=== PATIENT | female | born 1940 | race Caucasian/White ===

== ENCOUNTER 2020-08-21 12:11 | Outpatient (REF) | payer MEDICARE, SELFPAY ==
[2020-08-21 13:03] LABS: Alanine Aminotransferase 76 U/L (0-31); Albumin Level 3.7 g/dL (3.5-5.0); Alkaline Phosphatase 98 U/L (39-117); Aspartate Amino Transferase 88 U/L (5-31); Bilirubin Direct 0.3 mg/dL (0.0-0.5); Bilirubin Total 0.5 mg/dL (0.0-1.0); Total Protein 6.3 g/dL (6.5-8.0)
== END 2020-08-21 12:12 | disposition home or self-care (01) ==
LOC: HO.LNP 12:11
PROVIDERS: Visit Provider Internal Medicine
DX: K75.4 Autoimmune hepatitis (principal); R74.8 Abnormal levels of other serum enzymes
CPT/HCPCS: 80076

== ENCOUNTER 2020-09-01 14:58 | Outpatient (REF) | payer MEDICARE, SELFPAY ==
[2020-09-01 15:50] LABS: Alanine Aminotransferase 108 U/L (0-31); Alkaline Phosphatase 115 U/L (39-117); Aspartate Amino Transferase 117 U/L (5-31); Bilirubin Direct 0.4 mg/dL (0.0-0.5); Bilirubin Total 1.1 mg/dL (0.0-1.0); Total Protein 6.9 g/dL (6.5-8.0)
== END 2020-09-01 14:59 | disposition home or self-care (01) ==
LOC: HO.LNP 14:58
PROVIDERS: Visit Provider Internal Medicine
DX: K75.4 Autoimmune hepatitis (principal)
CPT/HCPCS: 80076

== ENCOUNTER 2020-09-15 15:39 | Outpatient (REF) | payer MEDICARE, SELFPAY ==
[2020-09-15 16:16] LABS: Alanine Aminotransferase 99 U/L (0-31); Alkaline Phosphatase 101 U/L (39-117); Aspartate Amino Transferase 94 U/L (5-31); Bilirubin Direct 0.4 mg/dL (0.0-0.5); Bilirubin Total 0.9 mg/dL (0.0-1.0); Total Protein 6.9 g/dL (6.5-8.0)
== END 2020-09-15 15:40 | disposition home or self-care (01) ==
LOC: HO.LNP 15:39
PROVIDERS: Visit Provider Internal Medicine
DX: K75.4 Autoimmune hepatitis (principal)
CPT/HCPCS: 80076

== ENCOUNTER 2020-10-01 15:37 | Outpatient (REF) | payer MEDICARE, SELFPAY ==
[2020-10-01 16:40] LABS: Alanine Aminotransferase 67 U/L (0-31); Alkaline Phosphatase 103 U/L (39-117); Aspartate Amino Transferase 68 U/L (5-31); Bilirubin Direct 0.4 mg/dL (0.0-0.5); Bilirubin Total 0.9 mg/dL (0.0-1.0); Total Protein 6.8 g/dL (6.5-8.0)
== END 2020-10-01 15:38 | disposition home or self-care (01) ==
LOC: HO.LNP 15:37
PROVIDERS: Visit Provider Internal Medicine
DX: K75.4 Autoimmune hepatitis (principal)
CPT/HCPCS: 80076

== ENCOUNTER 2020-10-13 15:47 | Outpatient (REF) | payer MEDICARE, SELFPAY ==
[2020-10-13 16:25] LABS: Alanine Aminotransferase 57 U/L (0-31); Alkaline Phosphatase 97 U/L (39-117); Aspartate Amino Transferase 61 U/L (5-31); Bilirubin Direct 0.3 mg/dL (0.0-0.5); Bilirubin Total 0.5 mg/dL (0.0-1.0); Total Protein 6.7 g/dL (6.5-8.0)
== END 2020-10-13 15:48 | disposition home or self-care (01) ==
LOC: HO.LNP 15:47
PROVIDERS: Visit Provider Internal Medicine
DX: K75.4 Autoimmune hepatitis (principal); R94.5 Abnormal results of liver function studies
CPT/HCPCS: 80076

== ENCOUNTER 2020-11-14 15:21 | Outpatient (REF) | payer MEDICARE, SELFPAY ==
[2020-11-14 15:28] LABS: MANUAL DIFF FLAG NO
[2020-11-14 15:32] LABS: Basophils Absolute Auto 0.1 X10*3/uL (0.0-0.2); Basophils Percent Auto 1.8 % (0-2); Eosinophils Absolute Auto 0.2 X10*3/uL (0.0-0.4); Eosinophils Percent Auto 3.8 % (0-4); Hematocrit 44.4 % (37-47); Hemoglobin 14.8 g/dl (12.0-16.0); Imm Gran Abs Auto 0.02 X10*3/uL (0.00-0.03); Imm Gran Pct Auto 0.4 % (0.0-0.4); Lymphocytes Percent Auto 34.8 % (20-40); Mean Corpuscular HGB Conc 33.3 g/dl (31.0-35.0); Mean Corpuscular Hemoglobin 30.3 pg (27.0-33.0); Mean Corpuscular Volume 90.8 fL (80-98); Mean Platelet Volume 11.3 fL (9.4-12.3); Monocytes Absolute Auto 0.5 X10*3/uL (0.1-1.2); Monocytes Percent Auto 8.4 % (2-11); Neutrophils Absolute Auto 2.9 X10*3/uL (2.0-8.3); Neutrophils Percent Auto 50.8 % (45-73); Platelet Count 168 X10*3/uL (160-400); Red Blood Count 4.89 X10*6/uL (4.20-5.50); Red Cell Distribution Width 13.9 % (11.0-16.0); White Blood Count 5.6 X10*3/uL (4.8-10.8)
[2020-11-14 16:08] LABS: Alanine Aminotransferase 60 U/L (0-31); Alkaline Phosphatase 91 U/L (39-117); Anion Gap 14 (12-20); Aspartate Amino Transferase 70 U/L (5-31); Bilirubin Direct 0.5 mg/dL (0.0-0.5); Bilirubin Total 1.3 mg/dL (0.0-1.0); Blood Urea Nitrogen 22 mg/dL (9-16); Carbon Dioxide 24 mmol/L (22-29); Chloride 109 mmol/L (96-108); Estimated Glomerular Filt Rate > 60; Glucose Random 104 mg/dL (60-115); Potassium 4.5 mmol/l (3.3-5.1); Sodium 142 mmol/L (135-145); Total Protein 6.7 g/dL (6.5-8.0)
[2020-11-14 16:20] LABS: Erythrocyte Sedimentation Rate 12 MM/HR (0-20)
== END 2020-11-14 15:22 | disposition home or self-care (01) ==
LOC: HO.LNP 15:21
PROVIDERS: Referring Provider Physician Assistant Medical; Visit Provider Internal Medicine
DX: K75.4 Autoimmune hepatitis (principal); M35.9 Systemic involvement of connective tissue, unspecified; D68.61 Antiphospholipid syndrome; M19.071 Primary osteoarthritis, right ankle and foot; M19.072 Primary osteoarthritis, left ankle and foot; M77.32 Calcaneal spur, left foot
CPT/HCPCS: 80053; 80076; 82248; 85025; 85652; 86140

== ENCOUNTER 2020-12-26 16:06 | Outpatient (REF) | payer MEDICARE, SELFPAY ==
[2020-12-26 16:43] LABS: Alanine Aminotransferase 48 U/L (0-31); Albumin Level 3.9 g/dL (3.5-5.0); Alkaline Phosphatase 71 U/L (39-117); Aspartate Amino Transferase 51 U/L (5-31); Bilirubin Direct 0.4 mg/dL (0.0-0.5); Bilirubin Total 1.1 mg/dL (0.0-1.0); Total Protein 6.6 g/dL (6.5-8.0)
== END 2020-12-26 16:07 | disposition home or self-care (01) ==
LOC: HO.LNP 16:06
PROVIDERS: Visit Provider Internal Medicine
DX: K75.4 Autoimmune hepatitis (principal)
CPT/HCPCS: 80076

== ENCOUNTER 2021-01-27 15:36 | Outpatient (REF) | payer MEDICARE, SELFPAY ==
[2021-01-27 16:16] LABS: Alanine Aminotransferase 33 U/L (0-31); Albumin Level 3.9 g/dL (3.5-5.0); Alkaline Phosphatase 62 U/L (39-117); Aspartate Amino Transferase 36 U/L (5-31); Bilirubin Direct 0.4 mg/dL (0.0-0.5); Bilirubin Total 1.1 mg/dL (0.0-1.0); Total Protein 6.5 g/dL (6.5-8.0)
== END 2021-01-27 15:37 | disposition home or self-care (01) ==
LOC: HO.LNP 15:36
PROVIDERS: Visit Provider Internal Medicine
DX: K75.4 Autoimmune hepatitis (principal)
CPT/HCPCS: 80076

== ENCOUNTER 2021-02-24 16:31 | Outpatient (REF) | payer MEDICARE, SELFPAY ==
[2021-02-24 17:44] LABS: Alanine Aminotransferase 48 U/L (0-31); Albumin Level 3.8 g/dL (3.5-5.0); Alkaline Phosphatase 61 U/L (39-117); Aspartate Amino Transferase 40 U/L (5-31); Bilirubin Direct 0.5 mg/dL (0.0-0.5); Bilirubin Total 1.2 mg/dL (0.0-1.0); Total Protein 6.4 g/dL (6.5-8.0)
== END 2021-02-24 16:32 | disposition home or self-care (01) ==
LOC: HO.LNP 16:31
PROVIDERS: Visit Provider Internal Medicine
DX: K75.4 Autoimmune hepatitis (principal)
CPT/HCPCS: 80076

== ENCOUNTER 2021-04-02 15:35 | Outpatient (REF) | payer MEDICARE, SELFPAY ==
[2021-04-02 16:10] LABS: Alanine Aminotransferase 21 U/L (0-31); Alkaline Phosphatase 66 U/L (39-117); Aspartate Amino Transferase 27 U/L (5-31); Bilirubin Direct 0.5 mg/dL (0.0-0.5); Bilirubin Total 1.2 mg/dL (0.0-1.0); Total Protein 6.5 g/dL (6.5-8.0)
== END 2021-04-02 15:36 | disposition home or self-care (01) ==
LOC: HO.LNP 15:35
PROVIDERS: Visit Provider Internal Medicine
DX: K75.4 Autoimmune hepatitis (principal)
CPT/HCPCS: 80076

== ENCOUNTER 2021-04-30 15:17 | Outpatient (REF) | payer MEDICARE, SELFPAY ==
[2021-04-30 15:55] LABS: Alanine Aminotransferase 21 U/L (0-31); Albumin Level 3.8 g/dL (3.5-5.0); Alkaline Phosphatase 66 U/L (39-117); Aspartate Amino Transferase 27 U/L (5-31); Bilirubin Direct 0.5 mg/dL (0.0-0.5); Bilirubin Total 1.3 mg/dL (0.0-1.0); Total Protein 6.3 g/dL (6.5-8.0)
== END 2021-04-30 15:18 | disposition home or self-care (01) ==
LOC: HO.LNP 15:17
PROVIDERS: Visit Provider Internal Medicine
DX: K75.4 Autoimmune hepatitis (principal)
CPT/HCPCS: 80076

== ENCOUNTER 2021-06-05 14:21 | Outpatient (REF) | payer MEDICARE, SELFPAY ==
[2021-06-05 14:49] LABS: Alanine Aminotransferase 26 U/L (0-31); Albumin Level 3.9 g/dL (3.5-5.0); Alkaline Phosphatase 68 U/L (39-117); Aspartate Amino Transferase 34 U/L (5-31); Bilirubin Direct 0.4 mg/dL (0.0-0.5); Total Protein 6.4 g/dL (6.5-8.0)
== END 2021-06-05 14:22 | disposition home or self-care (01) ==
LOC: HO.LNP 14:21
PROVIDERS: Visit Provider Internal Medicine
DX: K75.4 Autoimmune hepatitis (principal)
CPT/HCPCS: 80076

== ENCOUNTER 2021-07-20 15:14 | Outpatient (REF) | payer MEDICARE, SELFPAY ==
[2021-07-20 16:07] LABS: Alanine Aminotransferase 17 U/L (0-31); Albumin Level 4.2 g/dL (3.5-5.0); Alkaline Phosphatase 69 U/L (39-117); Aspartate Amino Transferase 22 U/L (5-31); Bilirubin Direct 0.4 mg/dL (0.0-0.5); Bilirubin Total 0.8 mg/dL (0.0-1.0); Total Protein 6.5 g/dL (6.5-8.0)
== END 2021-07-20 15:15 | disposition home or self-care (01) ==
LOC: HO.LNP 15:14
PROVIDERS: Visit Provider Internal Medicine
DX: K75.4 Autoimmune hepatitis (principal)
CPT/HCPCS: 80076

== ENCOUNTER 2021-08-21 15:38 | Outpatient (REF) | payer MEDICARE, SELFPAY ==
[2021-08-21 16:03] LABS: Alanine Aminotransferase 16 U/L (0-31); Albumin Level 3.9 g/dL (3.5-5.0); Alkaline Phosphatase 70 U/L (39-117); Aspartate Amino Transferase 25 U/L (5-31); Bilirubin Direct 0.4 mg/dL (0.0-0.5); Total Protein 6.4 g/dL (6.5-8.0)
== END 2021-08-21 15:39 | disposition home or self-care (01) ==
LOC: HO.LNP 15:38
PROVIDERS: Visit Provider Internal Medicine
DX: K75.4 Autoimmune hepatitis (principal)
CPT/HCPCS: 80076

== ENCOUNTER 2021-11-06 14:36 | Outpatient (REF) | payer MEDICARE, SELFPAY ==
[2021-11-06 15:16] LABS: Alanine Aminotransferase 17 U/L (0-31); Albumin Level 4.1 g/dL (3.5-5.0); Alkaline Phosphatase 72 U/L (39-117); Aspartate Amino Transferase 21 U/L (5-31); Bilirubin Direct 0.4 mg/dL (0.0-0.5); Total Protein 6.6 g/dL (6.5-8.0)
== END 2021-11-06 14:37 | disposition home or self-care (01) ==
LOC: HO.LNP 14:36
PROVIDERS: Visit Provider Internal Medicine
DX: K75.4 Autoimmune hepatitis (principal)
CPT/HCPCS: 80076

== ENCOUNTER 2022-01-22 16:08 | Outpatient (REF) | payer MEDICARE, SELFPAY ==
[2022-01-22 16:32] LABS: Alanine Aminotransferase 18 U/L (0-31); Albumin Level 3.8 g/dL (3.5-5.0); Alkaline Phosphatase 62 U/L (39-117); Aspartate Amino Transferase 21 U/L (5-31); Bilirubin Direct 0.5 mg/dL (0.0-0.5); Bilirubin Total 1.4 mg/dL (0.0-1.0); Total Protein 6.1 g/dL (6.5-8.0)
== END 2022-01-22 16:09 | disposition home or self-care (01) ==
LOC: HO.LNP 16:08
PROVIDERS: Visit Provider Internal Medicine
DX: K75.4 Autoimmune hepatitis (principal)
CPT/HCPCS: 80076

== ENCOUNTER 2022-03-15 16:26 | Outpatient (REF) | payer MEDICARE, SELFPAY ==
[2022-03-15 16:55] LABS: Alanine Aminotransferase 17 U/L (0-31); Albumin Level 3.9 g/dL (3.5-5.0); Alkaline Phosphatase 64 U/L (39-117); Aspartate Amino Transferase 23 U/L (5-31); Bilirubin Direct 0.3 mg/dL (0.0-0.5); Bilirubin Total 0.7 mg/dL (0.0-1.0); Total Protein 6.4 g/dL (6.5-8.0)
== END 2022-03-15 16:27 | disposition home or self-care (01) ==
LOC: HO.LNP 16:26
PROVIDERS: Visit Provider Internal Medicine
DX: K75.4 Autoimmune hepatitis (principal)
CPT/HCPCS: 80076

== ENCOUNTER 2022-05-29 13:24 | Outpatient (REF) | payer MEDICARE, SELFPAY ==
[2022-05-29 13:50] LABS: Alanine Aminotransferase 17 U/L (0-31); Albumin Level 4.1 g/dL (3.5-5.0); Alkaline Phosphatase 61 U/L (39-117); Aspartate Amino Transferase 23 U/L (5-31); Bilirubin Direct 0.5 mg/dL (0.0-0.5); Total Protein 6.5 g/dL (6.5-8.0)
== END 2022-05-29 13:25 | disposition home or self-care (01) ==
LOC: HO.LNP 13:24
PROVIDERS: Visit Provider Internal Medicine
DX: K75.4 Autoimmune hepatitis (principal)
CPT/HCPCS: 80076

== ENCOUNTER 2022-07-17 15:42 | Outpatient (REF) | payer MEDICARE, SELFPAY ==
[2022-07-17 16:01] LABS: Alanine Aminotransferase 20 U/L (0-31); Albumin Level 3.9 g/dL (3.5-5.0); Alkaline Phosphatase 58 U/L (39-117); Aspartate Amino Transferase 28 U/L (5-31); Bilirubin Direct 0.5 mg/dL (0.0-0.5); Bilirubin Total 1.3 mg/dL (0.0-1.0); Total Protein 6.2 g/dL (6.5-8.0)
== END 2022-07-17 15:43 | disposition home or self-care (01) ==
LOC: HO.LNP 15:42
PROVIDERS: Visit Provider Internal Medicine
DX: K75.4 Autoimmune hepatitis (principal)
CPT/HCPCS: 80076

== ENCOUNTER 2022-09-30 16:13 | Outpatient (REF) | payer MEDICARE, SELFPAY ==
[2022-09-30 16:46] LABS: Alanine Aminotransferase 32 U/L (0-31); Albumin Level 3.9 g/dL (3.5-5.0); Alkaline Phosphatase 83 U/L (39-117); Aspartate Amino Transferase 42 U/L (5-31); Bilirubin Direct 0.3 mg/dL (0.0-0.5); Bilirubin Total 1.1 mg/dL (0.0-1.0); Total Protein 6.2 g/dL (6.5-8.0)
== END 2022-09-30 16:14 | disposition home or self-care (01) ==
LOC: HO.LNP 16:13
PROVIDERS: Visit Provider Internal Medicine
DX: K75.4 Autoimmune hepatitis (principal)
CPT/HCPCS: 80076

== ENCOUNTER 2022-11-25 15:28 | Outpatient (REF) | payer MEDICARE, SELFPAY ==
[2022-11-25 16:01] LABS: Alanine Aminotransferase 22 U/L (0-31); Albumin Level 3.9 g/dL (3.5-5.0); Alkaline Phosphatase 68 U/L (39-117); Anion Gap 13 (12-20); Aspartate Amino Transferase 34 U/L (5-31); Bilirubin Direct 0.4 mg/dL (0.0-0.5); Bilirubin Total 1.3 mg/dL (0.0-1.0); Blood Urea Nitrogen 19 mg/dL (9-16); Calcium 9.7 mg/dL (8.4-10.2); Carbon Dioxide 25 mmol/L (22-29); Chloride 109 mmol/L (96-108); Cholesterol 187 mg/dL; Estimated Glomerular Filt Rate 59; Glucose Fasting 107 mg/dL (60-99); HDL Cholesterol 58 mg/dL; LDL Cholesterol Calculated 103 mg/dl; Potassium 4.2 mmol/L (3.3-5.1); Sodium 143 mmol/L (135-145); Total Protein 6.2 g/dL (6.5-8.0); Triglycerides 132 mg/dL
== END 2022-11-25 15:29 | disposition home or self-care (01) ==
LOC: HO.LNP 15:28
PROVIDERS: Visit Provider Nurse Practitioner Family
DX: Z13.1 Encounter for screening for diabetes mellitus (principal); Z13.220 Encounter for screening for lipoid disorders; K75.4 Autoimmune hepatitis
CPT/HCPCS: 80048; 80061; 80076

== ENCOUNTER 2022-12-24 17:00 | Outpatient (REF) | payer MEDICARE, SELFPAY ==
[2022-12-24 17:25] LABS: Estimated Average Glucose 103 mg/dL; Hemoglobin A1c % 5.2 %
[2022-12-24 18:16] LABS: Alanine Aminotransferase 19 U/L (0-31); Albumin Level 3.8 g/dL (3.5-5.0); Alkaline Phosphatase 61 U/L (39-117); Aspartate Amino Transferase 31 U/L (5-31); Bilirubin Direct 0.4 mg/dL (0.0-0.5); Bilirubin Total 1.4 mg/dL (0.0-1.0); Total Protein 5.9 g/dL (6.5-8.0)
== END 2022-12-24 17:01 | disposition home or self-care (01) ==
LOC: HO.LNP 17:00
PROVIDERS: Internal Medicine; Visit Provider Nurse Practitioner Family
DX: R73.01 Impaired fasting glucose (principal); K75.4 Autoimmune hepatitis
CPT/HCPCS: 80076; 83036

== ENCOUNTER → 2023-03-23 12:37 | Outpatient (BNVA) | payer MEDICARE, SELFPAY | PROVIDERS: PCP Physician Assistant; Visit Provider Student in an Organized Health Care Education/Training Program | DX: M35.9 Systemic involvement of connective tissue, unspecified (principal); Z79.52 Long term (current) use of systemic steroids | CPT/HCPCS: 99202 ==

== ENCOUNTER 2023-03-30 10:12 | Outpatient (REF) | payer MEDICARE, SELFPAY ==
--- NOTE | ~2023-03-30 | XR_ITS ---
EXAMINATION: XR SHOULDER, LEFT CLINICAL INFORMATION: Unable to lift left arm of COMPARISON: None available. TECHNIQUE: AP external rotation, Grashey, scapular Y of the left shoulder. FINDINGS: The bones and soft tissues are intact. No fracture. There is superior subluxation of the humeral head in relation to the glenoid and mild joint space narrowing. There is moderately severe acromioclavicular osteoarthritis. No abnormal soft tissue calcifications. XR/XR shoulder LT min 2V IMPRESSION: Moderately severe acromioclavicular osteoarthritis as well as arthritic changes of the left ulnohumeral joint.
--- NOTE | ~2023-03-30 | XR_ITS ---
EXAMINATION: XR SHOULDER, RIGHT CLINICAL INFORMATION: Unable to lift left arm COMPARISON: None available. TECHNIQUE: AP external rotation, Grashey, scapular Y, and axillary views of the right shoulder. FINDINGS: There is moderately severe acromioclavicular osteoarthritis. There is superior subluxation of the humeral head in relation to the glenoid and soft tissue calcifications suggestive of rotator tendinopathy. No fracture. Other than the subluxation, glenohumeral joint remains in alignment. Soft tissues are otherwise normal XR/XR shoulder RT min 2V IMPRESSION: Degenerative changes of the right shoulder with moderately severe acromioclavicular osteoarthritis and probable rotator tendinopathy.
== END 2023-03-30 10:13 | disposition home or self-care (01) ==
LOC: HO.XRAY 10:12
PROVIDERS: PCP Physician Assistant; Visit Provider Student in an Organized Health Care Education/Training Program
DX: M19.011 Primary osteoarthritis, right shoulder (principal); M19.012 Primary osteoarthritis, left shoulder
CPT/HCPCS: 73030

== ENCOUNTER 2023-04-04 17:31 | Outpatient (REF) | payer MEDICARE, SELFPAY ==
[2023-04-04 18:06] LABS: Alanine Aminotransferase 20 U/L (0-31); Albumin Level 3.9 g/dL (3.5-5.0); Alkaline Phosphatase 62 U/L (39-117); Aspartate Amino Transferase 24 U/L (5-31); Bilirubin Direct 0.4 mg/dL (0.0-0.5); Bilirubin Total 0.8 mg/dL (0.0-1.0); Total Protein 6.1 g/dL (6.5-8.0)
== END 2023-04-04 17:32 | disposition home or self-care (01) ==
LOC: HO.LNP 17:31
PROVIDERS: Visit Provider Internal Medicine
DX: K75.4 Autoimmune hepatitis (principal)
CPT/HCPCS: 80076

== ENCOUNTER 2023-04-06 10:46 | Outpatient (REF) | payer MEDICARE, SELFPAY ==
--- NOTE | ~2023-04-06 | MM_ITS ---
EXAMINATION: BONE DENSITOMETRY CLINICAL INDICATION: Age-related osteoporosis without current pathological fracture. COMPARISON: None (current study represents initial baseline exam). TECHNIQUE: Using a [employer] DXA System (software version: 13.1) manufactured by [employer], dual-energy x-ray absorptiometry was performed of the lumbar spine and right hip. The images are of good technical quality. Summary results are attached. FINDINGS: AP SPINE L1-L2 (excluding L3 and L4): The data of L1-L4 has been changed to exclude the L3 and L4 vertebral bodies, because degenerative changes at these levels may cause overestimation of lumbar spine density. BMD 1.464 g/cm2, Z-score 3.2, T-score 2.5, normal. RIGHT FEMUR, NECK: BMD 0.877 g/cm2, Z-score 0.3, T-score -1.2, osteopenia. RIGHT FEMUR, TOTAL: BMD 0.843 g/cm2, Z-score 0.0, T-score -1.3, osteopenia. IDENTIFIED RISK FACTORS: Menopause, secondary osteoporosis, height loss, glucocorticoids (chronic). HISTORY OF FRACTURE: None listed. MEDICATIONS: Calcium supplements or multivitamin, vitamin D. MM/XR DEXA axial skeleton IMPRESSION: 1. DIAGNOSIS: Osteopenia based on the lowest T-score value of -1.3 in the total femur applying World Health Organization criteria. 2. 10-YEAR FRACTURE RISK PREDICTION, FRAX: Major osteoporotic fracture (clinical spine, forearm, hip or shoulder) 17.1%. Hip fracture 4.2%. 3. Treatment Recommendations: NOF guidelines recommend consideration for treatment in postmenopausal women and men age 50 and older presenting with the following: -A hip or vertebral (clinical or morphometric) fracture. -T-score less than or equal to -2.5 at the femoral neck or spine after appropriate evaluation to exclude secondary causes. -Low bone mass at the hip or spine and a 10-year fracture probability by FRAX of greater than or equal to 3% for hip fracture or greater than or equal to 20% for major osteoporotic fracture based on the [place] adapted WHO algorithm. 4. Other Recommendations: All treatment decisions require clinical judgment and consideration of individual patient factors, including patient preferences, comorbidities, previous drug use, risk factors not captured in the FRAX model (e.g. frailty, falls, vitamin D deficiency, increased bone turnover, interval significant decline in bone density) and possible under or overestimation of fracture risk by FRAX. Additional medical evaluation for secondary cause of low bone mineral density may be appropriate. FUTURE SCAN RECOMMENDATION: People with diagnosed cases of osteoporosis or at high risk for fracture should have regular bone mineral density tests. For patients eligible for Medicare, routine testing is allowed once every 2 years. The testing frequency can be increased to one year for patients who have rapidly progressing disease, those who are receiving or discontinuing medical therapy to restore bone mass, or have additional risk factors.
== END 2023-04-06 10:47 | disposition home or self-care (01) ==
LOC: HO.MAMMO 10:46
PROVIDERS: PCP Physician Assistant; Visit Provider Student in an Organized Health Care Education/Training Program
DX: Z13.820 Encounter for screening for osteoporosis (principal); Z78.0 Asymptomatic menopausal state; M81.0 Age-related osteoporosis without current pathological fracture
CPT/HCPCS: 77080

== ENCOUNTER 2023-04-26 13:50 | Outpatient (RCR) | payer MEDICARE, SELFPAY | END 2023-05-06 12:41 | disposition home or self-care (01) | LOC: HO.PT 13:50 | PROVIDERS: PCP Physician Assistant; Visit Provider Student in an Organized Health Care Education/Training Program | DX: M19.012 Primary osteoarthritis, left shoulder (principal) ==

== ENCOUNTER 2023-05-12 09:47 | Outpatient (REF) | payer MEDICARE, SELFPAY ==
--- NOTE | 2023-05-12 09:50 | EMG_ITS ---
Bilateral median and ulnar motor and sensory studies were performed. Bilateral radial sensory studies were performed and paraspinal muscles were tested with a needle. IMPRESSION: 1. Moderate to severe left and [id number] right median neuropathy across carpal tunnel. 2. Chronic bilateral mid cervical radiculopathy. MD DELLA Velazquez/JESUS / [id number]
== END 2023-05-12 09:48 | disposition home or self-care (01) ==
LOC: HO.NEURO 09:47
PROVIDERS: PCP Physician Assistant; Visit Provider Student in an Organized Health Care Education/Training Program
DX: G56.03 Carpal tunnel syndrome, bilateral upper limbs (principal)
CPT/HCPCS: 95886; 95911

== ENCOUNTER 2023-06-15 11:07 | Outpatient (REF) | payer MEDICARE, SELFPAY ==
--- NOTE | 2023-06-15 12:17 | PFT_ITS ---
Forced vital capacity 96%, FEV1 89%, FEV1/FVC ratio is 69. DKN15-89 76% and MVV is 97%. Post bronchodilator therapy, there is no significant change. Total lung capacity 90%. Residual volume 82%. Diffusion capacity 78%. CONCLUSION: There is a very minimal degree of obstructive airway disorder, but there is no significant response to bronchodilator therapy. Lung volumes and diffusion capacity are normal. MD JAYDEN Ernst/JESUS / [id number]
== END 2023-06-15 11:08 | disposition home or self-care (01) ==
LOC: HO.RESP 11:07
PROVIDERS: PCP Physician Assistant; Visit Provider Student in an Organized Health Care Education/Training Program
DX: R06.02 Shortness of breath (principal)
CPT/HCPCS: 94060; 94727; 94729

== ENCOUNTER → 2023-06-15 12:17 | Outpatient (BNV) | payer MEDICARE, SELFPAY | PROVIDERS: PCP Physician Assistant; Visit Provider Internal Medicine | DX: R06.09 Other forms of dyspnea (principal) | CPT/HCPCS: 94060; 94727; 94729 ==

== ENCOUNTER 2023-06-21 14:11 | Outpatient (AMB) | payer MEDICARE, SELFPAY ==
--- NOTE | 2023-06-21 14:25 | A.OFFVIS_ITS ---
Intake Vital Signs 06/21/23 14:26 Height 5 ft 7 in BMI Reason not done Patient refused/unable BP 138/66 Blood Pressure Location Rt brachial Position Sitting Pulse 93 Pulse Source Pulse Oximeter Temp 97.7 F Temp Source Skin Pulse Oximetry (%) 97 Comment Pt states weight is 216 Intake Visit Reasons: UCTD Intake Note: Pt seen today for follow up and test results. Natural Sciences Manager Required: No Accompanied by: Friend Crystal Allergies cephalexin [CEPHALEXIN] Allergy (Severe, Verified 06/21/23 14:28) ANAPHYLAXIS morphine [MORPHINE] Allergy (Intermediate, Verified 06/21/23 14:28) RASHES AND HIVES, hives benzocaine Allergy (Unknown, Verified 06/21/23 14:28) Unknown clindamycin [CLINDAMYCIN] Allergy (Unknown, Verified 06/21/23 14:28) ANAPHYLAXIS gabapentin [GABAPENTIN] Allergy (Unknown, Verified 06/21/23 14:28) HIVES gluten [GLUTEN] Allergy (Unknown, Verified 06/21/23 14:28) NAUSEA & VOMITING oxycodone [OXYCODONE] Allergy (Unknown, Verified 06/21/23 14:28) RASH, hives povidone-iodine [From BETADINE] Allergy (Unknown, Verified 06/21/23 14:28) RASH soap [From BETADINE] Allergy (Unknown, Verified 06/21/23 14:28) UNKNOWN Clindamycin HCl Allergy (Unknown, Uncoded 06/21/23 14:28) anaphylaxis Gluten Allergy (Unknown, Uncoded 06/21/23 14:28) rashes,hives,diarrhea Medication List - Last Reconciled 06/21/23 by Mya Palma MD cholecalciferol (vitamin D3) (Vitamin D3) 25 mcg PO DAILY cider [id number] 300-8.3 mg tabs PO DAILY docusate sodium 50 mg PO DAILY PRN magnesium oxide 250 mg PO DAILY multivitamin 1 tab PO DAILY prednisone 5 mg PO DAILY warfarin 1 tab PO DAILY HPI HPI Comments History of Present Illness Details This is an 83-year-old female with undifferentiated connective tissue disease who presents for follow-up. States that the shoulder exam done by me last visit caused her to have a bruise in her left arm that lasted about 1 month. Continues to have left shoulder stiffness. She has been using a wrist splint for her carpal tunnel symptoms bilaterally with some improvement. Initial history: This is an 82-year-old female who is referred for evaluation of mixed connective tissue disease. Back in 2016 patient had a couple of strokes and was diagnosed with antiphospholipid antibody syndrome. She has been on warfarin since then. She self monitors her INR at home. Her current target is between 2-2.5. Around that time she was also tested for autoimmune rheumatic disease and was labeled as MCTD. She used to follow-up with Carlos Napoles. Patient was never on any medications specifically for MCTD. Patient denies any history of Raynaud's. She had been on prednisone 5 mg daily since 2017 for autoimmune hepatitis. In 2019 patient had a flare of her condition and she had bilateral shoulder stiffness and pain associated with nausea, that lasted around 2 months. Patient walks with a walker as she feels that her knees sometimes give out on her. She gets shortness of breath with walking. She gets tingling and numbness of her fingers. [facility] Medical History Adult general medical exam Breast cancer HTN (hypertension) Rheumatoid arthritis Screening for diabetes mellitus Stroke Surgical History H/O lumpectomy H/O spinal fusion History of bilateral knee replacement History of hip replacement Family History Father Stented coronary artery Stroke Mother Parkinson disease Social History Household Members: None Housing: House Alcohol intake: never Patient Tobacco Use Status: Former Tobacco user Tobacco use type: Cigarette Years Smoked: quit in 1972 e-Cigarette/Vaping Use: Never Used Second Hand Smoke Exposure: No service: No Current occupational status: disabled Cognitive needs: Yes Hearing needs: No Vision needs: Yes Review of Systems Const Reports fatigue Musc Reports arthralgias Endo Reports fatigue Physical Exam Vital Signs: Last Vital Signs Temp 97.7 F 06/21/23 14:26 Pulse 93 06/21/23 14:26 BP 138/66 06/21/23 14:26 Pulse Ox 97 06/21/23 14:26 Const General: cooperative, healthy appearing and comfortable Nutritional Appearance: obese Orientation/consciousness: patient oriented x3 Limitations: ambulation with walker HEENT Head: Yes normal to inspection and Yes No palpable skull fracture present Resp Effort & Inspection: normal respiratory effort and able to speak in complete sentences Neuro General: patient oriented x3 Extrem Other: Osteoarthritic changes of both hands with no active synovitis Normal nailfold capillaroscopy Normal range of motion of right shoulder Significantly limited range of motion of left shoulder Bilateral shoulder crepitus Office Procedures Joint Injection/Drain Joint Injection/Drain Primary Site: left shoulder Prep: site was prepped using sterile technique Injected: 40 mg of, Kenalog and other (2 mL of 1% lidocaine) Approach Used: posterolateral Procedure: The patient tolerated the procedure well Coding Details: With the patient's consent the left shoulder was prepped with ChloraPrep and alcohol. Under a topical ethyl chloride spray the left subacromial space was injected with 40 mg of triamcinolone and 2 cc of 1% lidocaine. The patient tolerated the procedure without any acute adverse effects. 67728 - Large joint Procedure code (CPT) selection complete Assessment & Plan Assessment & Plan (1) Undifferentiated connective tissue disease: Code(s): M35.9 - Systemic involvement of connective tissue, unspecified Plan: This is an 83-year-old female with UCTD who presents for f/u. In 2016 she had 2 strokes and was diagnosed with antiphospholipid antibody syndrome, she was also found to have a positive ISAIAH and was following with a critical care specialist she was labeled as mixed connective tissue disease. I do not see any convincing signs of MCTD. She was never started on DMARDs. 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 I do not see any signs of autoimmune rheumatic disease upon my evaluation. Her PFTs are unremarkable. 2D echo is pending Her inflammatory symptoms might be masked by chronic use of prednisone 5 mg daily for autoimmune hepatitis. Follow-up in 6 months (2) Osteopenia: Comment: DEXA 03/2010 33 lowest T-score is-1.3 at the right femoral neck FRAX 17.1% for major osteoporotic fracture and 4.3% for hip fracture Code(s): M85.80 - Other specified disorders of bone density and structure, unspecified site Qualifiers: Osteopenia location: multiple sites Qualified Code(s): M85.89 - Other specified disorders of bone density and structure, multiple sites Plan: Patient is on long-term steroids. Patient has osteopenia with high FRAX score. Discussed risks and benefits of bisphosphonates. Patient is worried about side effects. She is refusing today, but will think about it (3) Primary osteoarthritis, left shoulder: Code(s): M19.012 - Primary osteoarthritis, left shoulder Plan: With patient's consent, left shoulder was injected with Kenalog clinic today. Can repeat the injection in 3-4 months if the 1st injection was helpful (4) Bilateral carpal tunnel syndrome: Code(s): G56.03 - Carpal tunnel syndrome, bilateral upper limbs Plan: Confirmed with NCS/EMG. Patient has been using bilateral wrist splints with s ome symptomatic improvement. Plan I spent 46 minutes reviewing patient's chart, evaluating patient, counseling patient and documenting in the chart Orders: Orders AMB Joint Injection/Aspiration Today M19.012 - Primary osteoarthritis, left shoulder, M81.0 - Age-related osteoporosis without current pathological fracture Coding Level of Care Code Est Pt Level 5 (48162) Diagnoses Undifferentiated connective tissue disease M35.9 Osteopenia M85.89 Osteopenia location: multiple sites Primary osteoarthritis, left shoulder M19.012 Bilateral carpal tunnel syndrome G56.03 CPT Codes Coding - 54792 Large joint: 90540 - Large joint ([id number])
[2023-06-21 14:26] VITALS: BP 138/66; PULSE 93; TEMP 36.5; O2SAT 97
== END 2023-06-21 15:17 | disposition home or self-care (01) ==
PROVIDERS: PCP Physician Assistant; Visit Provider Student in an Organized Health Care Education/Training Program
DX: M35.89 Other specified systemic involvement of connective tissue (principal); M85.89 Other specified disorders of bone density and structure, multiple sites; M19.012 Primary osteoarthritis, left shoulder; G56.03 Carpal tunnel syndrome, bilateral upper limbs
CPT/HCPCS: 20610; 99215

== ENCOUNTER → 2023-06-21 14:11 | Outpatient (BNVA) | payer MEDICARE, SELFPAY | PROVIDERS: PCP Physician Assistant; Visit Provider Student in an Organized Health Care Education/Training Program | DX: M19.012 Primary osteoarthritis, left shoulder (principal); M85.89 Other specified disorders of bone density and structure, multiple sites; M35.9 Systemic involvement of connective tissue, unspecified; G56.03 Carpal tunnel syndrome, bilateral upper limbs | CPT/HCPCS: 20610; 99212 ==

== ENCOUNTER → 2023-07-12 12:34 | Outpatient (REF) | payer MEDICARE, SELFPAY ==
--- NOTE | 2023-07-12 12:36 | CA_ITS ---
Transthoracic Echocardiogram Patient (Last, First, Middle): Ana Laura Lee V Gender: Female Date of : 1940 Age: 83 Procedure Date: 07/12/2023 Procedure Type: Transthoracic Echocardiogram Location: OP Height: 170.18 cm Weight: 97.98 kg BSA: 2.09 m2 Heart Rate: 63 bpm BP: 130 / 70 mmHg Bee Raiser: LAUREN Referring MD: Mya Palma MD Symptoms: R01.1 - Cardiac murmur, unspecified Study Quality: Adequate ECG Rhythm: Sinus Conclusions: - The left ventricular systolic function is normal. The calculated ejection fraction is 57% by biplane method. - There is moderate calcification of the aortic valve. There is mild aortic valve stenosis. - There is moderate mitral annular calcification. Findings Left Ventricle Normal left ventricular cavity size. There is normal left ventricular wall thickness. The left ventricular systolic function is normal. The calculated ejection fraction is 57% by biplane method. There is no evidence of regional wall motion abnormalities. Evidence suggests grade I (mild) diastolic dysfunction. There is moderate septal asymmetric hypertrophy. Right Ventricle Normal right ventricular cavity size and systolic function. Atria The left atrium is moderately dilated. The right atrium is normal in size. Aortic Valve There is moderate calcification of the aortic valve. There is mild aortic valve stenosis. There is no aortic valve regurgitation. Mitral Valve There is moderate mitral annular calcification. There is trace mitral valve regurgitation. There is no mitral valve stenosis. Pulmonic Valve The pulmonic valve is likely normal. Tricuspid Valve There is trace tricuspid valve regurgitation. There is no evidence of pulmonary hypertension. Great Vessels The asc aorta is normal in size. Venous The inferior vena cava is normal in size and collapses greater than 50% with inspiration. Pericardium/Pleural There is no evidence of pericardial effusion. Prior Study Comparison Changes noted compared to prior study dated: 02/02/2016. Progression of valvular abnormalities. Reporting delayed due to technical issues. Measurements 2D Linear Measurements IVSd: 1.50 0.6-0.9/0.6-1.0 cm LVIDd: 4.30 3.9-5.3/4.2-5.9 cm LVIDd Index: 2.06 2.4-3.2/2.2-3.1 cm/m2 LVIDs: 2.40 2.0-3.6 cm LVPWd: 0.80 0.7-1.1 cm LA Diam: 3.70 2.7-3.8/3.0-4.0 cm LAIDs Index: 1.77 1.5-2.3 cm/m2 LV Mass: 216.31 67-162/88-224 g LV Mass Index: 103.50 43-95/49-115 g/m2 LVOT Diam: 2.10 3.0+(-)1.3 cm 2D Systolic Function EF 4C: 56.30 >55% EF 2C: 59.70 >55% EF BiP: 57.00 >55% Mitral Valve MV Pk E: 0.90 MV PK A: 1.19 MV Decel Time: 276.00 E/A: 0.80 E'Lateral: 5.66 E'Medial: 4.24 E/E' Med: 21.30 E/E' Lat: 15.90 PHT: 81.00 MVA PHT: 2.72 Decel [place]: 3.27 Aortic Valve AoV Pk René: 1.99 AoV Mn René: 1.54 AoV VTI: 0.52 AoV Pk Grad: 16.00 Aov Mn Grad: 10.00 MARIA ELENA Cont.VTI: 1.45 LVOT LVOT Pk René: 0.86 LVOT Mn René: 0.64 LVOT VTI: 0.22 LVOT Pk Grad: 3.00 LVOT Mn Grad: 2.00 LVOT Diam: 2.10 LVOT Area: 3.46 Diastolic Function MV Pk E: 0.90 MV Pk A: 1.19 E/A: 0.80 E'Medial: 4.24 E/E' Med: 21.30 E' Laterial: 5.66 E/E' Lat: 15.90 Right Ventricle TAPSE (mm): 26.90 TVS' René: 12.20 Tricuspid Valve TR Pk René: 2.14 TR Pk Grad: 18.00 Great Vessels Aorta Sinus of Valsalva: 3.90 2.0-3.5 cm Ao Asc: 3.50 2.1-3.4 cm Pulmonary Valve PV Pk René: 1.19 Peak PV Grad: 6.00 Updated in Other Vendor System with Status of Final Chalino Reynaga MD electronically signed on 07/16/2023 11:13:02 AM with status of Final
== END ==
LOC: HO.CARD 12:34
PROVIDERS: PCP Physician Assistant; Visit Provider Student in an Organized Health Care Education/Training Program
DX: R01.1 Cardiac murmur, unspecified (principal)
CPT/HCPCS: 93306

== ENCOUNTER → 2023-07-12 12:36 | Outpatient (BNV) | payer MEDICARE, SELFPAY | PROVIDERS: PCP Physician Assistant; Visit Provider Internal Medicine | DX: I35.0 Nonrheumatic aortic (valve) stenosis (principal) | CPT/HCPCS: 93306 ==

== ENCOUNTER 2023-07-26 16:36 | Outpatient (REF) | payer MEDICARE, SELFPAY ==
[2023-07-26 18:30] LABS: Alanine Aminotransferase 15 U/L (0-31); Albumin Level 3.8 g/dL (3.5-5.0); Alkaline Phosphatase 63 U/L (39-117); Aspartate Amino Transferase 23 U/L (5-31); Bilirubin Direct 0.3 mg/dL (0.0-0.5); Bilirubin Total 0.9 mg/dL (0.0-1.0); Total Protein 5.9 g/dL (6.5-8.0)
== END 2023-07-26 16:37 | disposition home or self-care (01) ==
LOC: HO.10HDLNP 16:36
PROVIDERS: Visit Provider Internal Medicine
DX: K75.4 Autoimmune hepatitis (principal)
CPT/HCPCS: 80076

== ENCOUNTER 2023-09-12 15:52 | Outpatient (REF) | payer MEDICARE, SELFPAY ==
[2023-09-12 16:45] LABS: Alanine Aminotransferase 14 U/L (0-31); Albumin Level 3.9 g/dL (3.5-5.0); Alkaline Phosphatase 63 U/L (39-117); Aspartate Amino Transferase 27 U/L (5-31); Bilirubin Direct 0.4 mg/dL (0.0-0.5)
[2023-09-12 17:00] LABS: Vitamin D 25-OH Total 64.6 ng/mL (>30)
== END 2023-09-12 15:53 | disposition home or self-care (01) ==
LOC: HO.LNP 15:52
PROVIDERS: Visit Provider Internal Medicine
DX: K75.4 Autoimmune hepatitis (principal); E55.9 Vitamin D deficiency, unspecified
CPT/HCPCS: 80076; 82306

== ENCOUNTER 2024-01-03 16:41 | Outpatient (REF) | payer MEDICARE, SELFPAY ==
[2024-01-03 17:46] LABS: Alanine Aminotransferase 17 U/L (0-31); Albumin Level 3.8 g/dL (3.5-5.0); Alkaline Phosphatase 65 U/L (39-117); Aspartate Amino Transferase 26 U/L (5-31); Bilirubin Direct 0.4 mg/dL (0.0-0.5); Bilirubin Total 0.8 mg/dL (0.0-1.0); Total Protein 5.9 g/dL (6.5-8.0)
== END 2024-01-03 16:42 | disposition home or self-care (01) ==
LOC: HO.LNP 16:41
PROVIDERS: Visit Provider Internal Medicine
DX: K75.4 Autoimmune hepatitis (principal)
CPT/HCPCS: 80076

== ENCOUNTER 2024-03-09 16:07 | Outpatient (REF) | payer MEDICARE, SELFPAY ==
[2024-03-09 16:48] LABS: Alanine Aminotransferase 18 U/L (0-31); Alkaline Phosphatase 73 U/L (39-117); Aspartate Amino Transferase 26 U/L (5-31); Bilirubin Direct 0.3 mg/dL (0.0-0.5); Bilirubin Total 0.9 mg/dL (0.0-1.0); Total Protein 6.4 g/dL (6.5-8.0)
== END 2024-03-09 16:08 | disposition home or self-care (01) ==
LOC: HO.LNP 16:07
PROVIDERS: Visit Provider Internal Medicine
DX: K75.4 Autoimmune hepatitis (principal)
CPT/HCPCS: 80076

== ENCOUNTER 2024-03-14 13:04 | Outpatient (AMB) | payer MEDICARE, SELFPAY ==
--- NOTE | 2024-03-14 13:18 | MHC.PC.OV ---
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 Accompanied by: Friend Allergies cephalexin [CEPHALEXIN] Allergy (Severe, Verified 03/14/24 13:24) ANAPHYLAXIS morphine [MORPHINE] Allergy (Intermediate, Verified 03/14/24 13:24) RASHES AND HIVES, hives benzocaine Allergy (Unknown, Verified 03/14/24 13:24) Unknown clindamycin [CLINDAMYCIN] Allergy (Unknown, Verified 03/14/24 13:24) ANAPHYLAXIS gabapentin [GABAPENTIN] Allergy (Unknown, Verified 03/14/24 13:24) HIVES gluten [GLUTEN] Allergy (Unknown, Verified 03/14/24 13:24) NAUSEA & VOMITING oxycodone [OXYCODONE] Allergy (Unknown, Verified 03/14/24 13:24) RASH, hives povidone-iodine [From BETADINE] Allergy (Unknown, Verified 03/14/24 13:24) RASH soap [From BETADINE] Allergy (Unknown, Verified 03/14/24 13:24) UNKNOWN Clindamycin HCl Allergy (Unknown, Uncoded 03/14/24 13:24) anaphylaxis Gluten Allergy (Unknown, Uncoded 03/14/24 13:24) rashes,hives,diarrhea Tobacco use date assessed: 03/14/24 Fall risk assessment: No Falls in past year Last assessed Fall Risk: 03/14/24 Dental Screening Dental Screen Date: 03/14/24 Did you have a dental visit in the last 12 months?: Yes Did you have a dental problem in the last 6 months where you did not have access to dental care?: No Was dental information given to patient?: Patient has dentist [facility] Medical History Adult general medical exam Breast cancer HTN (hypertension) Rheumatoid arthritis Screening for diabetes mellitus Stroke Surgical History H/O spinal fusion History of bilateral knee replacement History of hip replacement H/O lumpectomy Family History Father Stented coronary artery Stroke Mother Parkinson disease Social History (Reviewed 03/14/24 @ 13:26 by ELO Chew Household Members: None Housing: House Alcohol intake: never Patient Tobacco Use Status: Former Tobacco user Tobacco use type: Cigarette Years Smoked: quit in 1972 e-Cigarette/Vaping Use: Never Used Second Hand Smoke Exposure: No service: No Current occupational status: disabled Cognitive needs: Yes Hearing needs: No Vision needs: Yes Questionnaire PHQ-9 Over the last 2 weeks, how often have you been bothered by any of the following problems? 1. Little interest or pleasure in doing things: not at all 2. Feeling down, depressed, or hopeless: not at all 3. Trouble falling or staying asleep, or sleeping too much: not at all 4. Feeling tired or having little energy: not at all 5. Poor appetite or overeating: not at all 6. Feeling bad about yourself - or that you are a failure or have let yourself or your family down: not at all 7. Trouble concentrating on things, such as reading the newspaper or watching television: not at all 8. Moving or speaking so slowly that other people could have noticed. Or the opposite - being so fidgety or restless that you have been moving around a lot more than usual: not at all 9. Thoughts that you would be better off or of hurting yourself in some way: not at all Total score: 0 Depression Screening Interpretation: Negative Depression Screening Done: Yes 16948 - PHQ-9 Billing: Yes Source: Developed by Drs. Jose Olmos, Mirta Giles, Tc Montoya and colleagues, with an educational jay from [employer]. Thrive Questionnaire Date Thrive assessed: 03/14/24 I am a: Patient What is your living situation today?: I have a steady place to live Within the past 12 months, did the food you bought not last and you didn't have the money to get more?: Never true Within the past 12 months, did you worry whether your food would run out before you got money to buy more?: Never true Do you have trouble paying for medicines?: No Do you have trouble getting transportation to medical appointments?: No Do you have trouble paying your heating and electricity bill?: No Do you have trouble taking care of your child, family member or friend?: No Do you have trouble with day-to-day activities such as bathing, preparing meals, shopping, managing finances, etc.?: No Are you currently unemployed and looking for a job?: No Are you interested in more education?: No Please select the resources that you would like help with: None Currently or been in a relationship where the following occur: no concerns reported THRIVE Score: 0 ROXANE-7 AMB Questionnaire ROXANE-7 Date ROXANE - 7 assessed: 03/14/24 Feeling nervous, anxious, or on edge: 0 = Not at all Not being able to stop or control worryin = Not at all Worrying too much about different things: 0 = Not at all Trouble relaxin = Not at all Being so restless that it is hard to sit still: 0 = Not at all Becoming easily annoyed or irritable: 0 = Not at all Feeling afraid as if something awful might happen: 0 = Not at all Total ROXANE-7 score (0-4 normal; 5-9 mild; 10-14 moderate; 15-21 severe): 0 Source: Developed by Drs. Jose Olmos, Mirta Giles, Tc Montoya and colleagues, with an educational jay from [employer] ROXANE-7 Assessment Billing ROXANE-7 Assessment Tool: ROXANE-7 Assessment 95669 Physical exam (Primary Care) Tobacco/Smoking Status: Tobacco use Status Tobacco use date assessed 03/09/23 03/09/23 14:21 Patient Tobacco Use Status Former Tobacco user 03/23/23 12:51 Tobacco use type Cigarette 03/23/23 12:51 e-Cigarette/Vaping Use Never Used 03/23/23 12:51 Depression Screening Interpretation: Negative Thrive Assessment: Date of Thrive Assessment Date Thrive assessed 03/09/23 03/09/23 14:21 Currently or been in a relationship where the following occur: no concerns reported Coding Additional Codes ROXANE-7 Assessment Billing - ROXANE-7 Assessment Tool: ROXANE-7 Assessment [id number] ([id number])
[2024-03-14 13:23] VITALS: BP 140/80; PULSE 77; O2SAT 97; BMI 32.3
--- NOTE | 2024-03-14 13:28 | AM.OFFVISMDC ---
Intake Vital Signs 03/14/24 13:23 Height 5 ft 7 in Weight 206 lb BMI 32.3 BP 140/80 H Blood Pressure Location Lt brachial Position Sitting Pulse 77 Pulse Source Pulse Oximeter Pulse Oximetry (%) 97 Oxygen Delivery Method Room Air Intake Visit Reasons: V G0439 Intake Note: Patient is here for an Annual Wellness Visit. 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 Accompanied by: Friend Allergies cephalexin [CEPHALEXIN] Allergy (Severe, Verified 03/14/24 13:55) ANAPHYLAXIS morphine [MORPHINE] Allergy (Intermediate, Verified 03/14/24 13:55) RASHES AND HIVES, hives benzocaine Allergy (Unknown, Verified 03/14/24 13:55) Unknown clindamycin [CLINDAMYCIN] Allergy (Unknown, Verified 03/14/24 13:55) ANAPHYLAXIS gabapentin [GABAPENTIN] Allergy (Unknown, Verified 03/14/24 13:55) HIVES gluten [GLUTEN] Allergy (Unknown, Verified 03/14/24 13:55) NAUSEA & VOMITING oxycodone [OXYCODONE] Allergy (Unknown, Verified 03/14/24 13:55) RASH, hives povidone-iodine [From BETADINE] Allergy (Unknown, Verified 03/14/24 13:55) RASH soap [From BETADINE] Allergy (Unknown, Verified 03/14/24 13:55) UNKNOWN Clindamycin HCl Allergy (Unknown, Uncoded 03/14/24 13:29) anaphylaxis Gluten Allergy (Unknown, Uncoded 03/14/24 13:29) rashes,hives,diarrhea Medication List - Last Reconciled 03/14/24 by Frederick Sapp PA-C cholecalciferol (vitamin D3) (Vitamin D3) 25 mcg PO DAILY cider [id number] 300-8.3 mg tabs PO DAILY docusate sodium 50 mg PO DAILY PRN magnesium oxide 250 mg PO DAILY multivitamin 1 tab PO DAILY warfarin 1 tab PO DAILY HPI SWV G0439 HPI Details Ana Laura is a 83-year-old female here today for a annual wellness visit. Patient has a past medical history significant for hypertension, h/o Breast cancer, [place] CVA, antiphospholipid syndome, autoimmune hepatitis, depression. Today we discussed patient's need for mammogram, bone density screening, diabetes screening, and cardiovascular screening. Patient has declined mammogram and bone density screening. Patient reports flu vaccine this year. [place] of care was reviewed with the patient and she was provided with a written screening schedule. Patient has healthcare proxy and MOLST forms in place, copies were made today. 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 Tim, patient has requested a rheumatology referral. Mammo: does get anymore Colon cancer screening: does not get anymore Bone density: osteopenia - was advised to consider Fosamax Laboratory Tests 11/25/22 03/09/24 15:00 15:45 Fasting Glucose 107 H AST 26 Cholesterol 187 HPI Comments History of Present Illness Details reviewed past medical history- yes reviewed surgical / hospitalization history- yes reviewed current medications- yes reviewed family history- yes home safety throw rugs? grab bars? raised toilet seat? working smoke detectors? activities of daily living difficulty bathing or showering? difficulty dressing? difficulty using the toilet? difficulty getting in and out of bed? difficulty walking? receives help from other person's with any of the above tasks? instrumental activities of daily living uses telephone - gets to place out of walking distance- go shopping for groceries- repairs own meals- does own minor home maintenance- does own laundry- does own housework- manages own money- currently takes medication- end of life planning discussed advanced directives- yes advanced directives on file? discussed wishes expressed in advanced directives. fall risk have you had any falls with injuries in the past year? have you had 2 or more falls in the past year? fall risk assessment: [facility] Medical History Adult general medical exam Screening for diabetes mellitus Stroke Rheumatoid arthritis Breast cancer HTN (hypertension) Surgical History H/O spinal fusion History of bilateral knee replacement History of hip replacement H/O lumpectomy Family History Father Stented coronary artery Stroke Mother Parkinson disease Social History Household Members: None Housing: House Alcohol intake: never Patient Tobacco Use Status: Former Tobacco user Tobacco use type: Cigarette Years Smoked: quit in 1972 e-Cigarette/Vaping Use: Never Used Second Hand Smoke Exposure: No service: No Current occupational status: disabled Cognitive needs: Yes Hearing needs: No Vision needs: Yes Questionnaire Medicare Wellness Checkup What is your age?: 80 or older What gender do you identify with?: female During the past 4 weeks, how much have you been bothered by emotional problems such as feeling anxious, depressed, irritable, sad or downhearted, and blue?: not at all During the past 4 weeks, has your physical & emotional health limited your social activities with family, friends, neighbors, or groups?: quite a bit During the past 4 weeks, how much bodily pain have you generally had?: mild pain During the past 4 weeks, was someone available to help you if you needed & wanted help?: yes, quite a bit During the past 4 weeks, what was the hardest physical activity you could do for at least 2 minutes?: moderate Can you get to places out of walking distance without help? (For eg., can you travel alone on buses, taxis or drive your car?): No Can you go shopping for groceries or clothes without someone's help?: No Can you prepare your own meals?: Yes Can you do your housework without help?: No Because of any health problems, do you need the help of another person with your personal care needs such as eating, bathing, dressing or getting around the house?: No Can you handle your own money without help?: Yes During the past 4 weeks, how would you rate your health in general?: good During the past 4 weeks how have things been going for you?: pretty well Are you having difficulties driving your car?: not applicable, I don't use a car Do you always fasten your seat belt when you are in a car?: yes, usually During past 4 weeks, have you been bothered by the following: never: Sexual problems?, Trouble eating well? and Problems using the telephone?, seldom: Teeth or denture problems?, sometimes: Falling or dizzy when standing up and often: Tiredness or fatigue? Have you fallen 2 or more times in the past year?: No Are you afraid of falling?: Yes Are you a smoker?: no During the past 4 weeks, how many drinks of wine, beer, or other alcoholic beverages did you have?: no alcohol at all Do you exercise for about 20 minutes 3 or more times a week?: yes, all the time Have you been given information to help with the following?: yes: Hazards in your house that might hurt you? and no: Keeping track of your medications? How often do you have trouble taking medicines the way you have been told to take them?: I always take medicine as prescribed How confident are you that you can control & manage most of your health problems?: very confident What is your race?: White Mini Mental State Exam (MMSE) Orientation What is the (year) (season) (date) (day) (month)?: year, season and date Where are we (state) (county) (town or city) (hospital) (floor)?: county and town or city Score Score: 5 Activity of Daily Living Bathing - sponge bath, tub bath or shower: receives no assistance (gets in/out by self, if usual bathing means Dressing - getting clothes from closets & drawers, including inner/outer garments & fasteners.: gets clothes & gets completely dressed without help Toileting - going to the 'toilet room' for urine/bowel elimination & cleaning self/arranging clothes: goes to toilet room, cleans self, arranges clothes without help Transfer: moves in & out of bed and chair without help (may use support object) Continence: controls urination/bowel movements completely by self Feeding: feeds self without help Total Score: 0 Information obtained from: patient Using telephone: independent Traveling: dependent Shopping: needs assistance Preparing meals: independent Housework: needs assistance Taking medicine: independent Managing money: independent Physical Exam Vital Signs: Last Vital Signs Pulse 77 03/14/24 13:23 BP 140/80 H 03/14/24 13:23 Pulse Ox 97 03/14/24 13:23 Oxygen Delivery Method Room Air 03/14/24 13:23 BMI result Body Mass Index 32.3 HEENT Other: hearing screening whisper test- failed- age-related hearing loss Eyes Other: vision screening- wearing corrective lenses Other: urinary incontinence? no Neuro Other: balance Romberg- abnormal tandem walk test- able while using walker walk-in turned test- unable, uses walker for ambulatory assistance rise from sit to stand- able within 3 seconds Assessment & Plan Assessment & Plan (1) Medicare annual wellness visit, subsequent: Code(s): Z00.00 - Encounter for general adult medical examination without abnormal findings Plan: As per HPI Plan As per hpi Orders: Orders Comprehensive [place]. Panel Fast 03/14/24 R73.01 - Impaired fasting glucose Hemoglobin A1c 03/14/24 R73.01 - Impaired fasting glucose Medications: New prothrombin time test strips (Coaguchek XS strips) As directed 48 ea 6RF D68.61 - Antiphospholipid syndrome prothrombin time test strips (Coaguchek XS strips) As directed 48 ea 6RF D68.61 - Antiphospholipid syndrome Coding Level of Care Code Medicare Subsequent (G0439) Diagnoses Medicare annual wellness visit, subsequent Z00.00 CPT Codes Advance Care Planning - Advance Care Planning discussion: On file, no changes ([id number]) Advance Care Planning - Time spent: 1-15 minutes, on File ([id number]) Advance Care Planning Advance Care Planning discussion: On file, no changes Date of discussion: 03/14/24 Forms completed: MOLST Time spent: 1-15 minutes, on File
== END 2024-03-14 14:28 | disposition home or self-care (01) ==
PROVIDERS: Visit Provider Physician Assistant
DX: Z00.00 Encounter for general adult medical examination without abnormal findings (principal)
CPT/HCPCS: 1123F; G0439

== ENCOUNTER 2024-05-15 06:22 | Inpatient (IN) | payer MEDICARE, SELFPAY ==
[2024-05-15] VITALS (7 sets, daily range): BP systolic 152–180; BP diastolic 66–108; PULSE 68–90; RESP 13–20; TEMP -12.5–37.1; O2SAT 96–98; BMI 33.1
--- NOTE | 2024-05-15 | ECG_ITS ---
Test Reason : CHEST PRESSURE Blood Pressure : / mmHG Vent. Rate : 084 BPM Atrial Rate : 084 BPM P-R Int : 194 ms QRS Dur : 088 ms QT Int : 374 ms P-R-T Axes : 110 012 080 degrees QTc Int : 441 ms Sinus rhythm with Premature supraventricular complexes Otherwise normal ECG When compared with ECG of 10-MAY-2016 08:23, Premature supraventricular complexes are now Present Referred By: Generic ED Physician Electronically Signed By:LUIS ANTONIO VICTORIA MD
--- NOTE | ~2024-05-15 | CT_ITS ---
EXAMINATION: CT angio head neck CLINICAL INFORMATION: Evaluate posterior circulation. Complaints of dizziness. COMPARISON: MR brain 05/15/2024. CT head 05/15/2024. TECHNIQUE: Fabricating Machine Operator images were obtained. A CT angiogram of the head and neck was performed in the arterial phase after the intravenous administration of 70 mL Omnipaque 350. Pre and delayed postcontrast images of the head were also obtained. 3D images were processed on an independent workstation under concurrent supervision. Arterial stenoses are measured in accordance with NASCET criteria or similar method if applicable. This CT examination was performed using dose optimization techniques as appropriate, including one or more of the following: Automated exposure control, iterative reconstruction, and adjustment of technique factors (mA and/or kVp) according to patient size (this includes techniques or standardized protocols for targeted exams where dose is matched to indication/reason for exam). Fleischner Society criteria for the followup of incidental pulmonary nodules was implemented if appropriate. Total exam dose-length product 1542 mGy-cm FINDINGS: Head: There is gliosis and encephalomalacia related to a chronic cortical infarct involving the vascular territory the right posterior cerebral artery. Scattered chronic small vessel ischemic changes are also visualized within the periventricular white matter and cerebellum. Postcontrast images demonstrate a dome-shaped mass at the lateral aspect of the right anterior clinoid process best visualized on axial image 23 of 59 series 13 that may represent a small meningioma measuring 0.9 cm in diameter. Otherwise no abnormal mass or enhancement visualized elsewhere within the intracranial compartment. There is no intracranial mass effect or midline shift. Lateral and third ventricles are normal. No hydrocephalus. The calvarium and skull base are intact. Mastoid air cells and middle ear cavities are well aerated. No active paranasal sinus disease. CT angiogram neck: Scattered atheromatous calcification involves the aortic arch apex. Origins of major aortic branches are widely patent. Common carotid arteries are normal. Partially calcified atherosclerotic plaque involves both carotid bifurcations. There is 25% stenosis of the origin of left internal carotid artery. The right extracranial internal carotid artery is widely patent. The left vertebral artery is occluded along its C3 segment and there is reconstitution of contrast filling the distal left vertebral artery that is likely secondary to cross filling via the basilar. The right vertebral artery is widely patent. CT angiogram head: Intracranial internal carotid arteries are normal. The intradural vertebral artery segments and basilar artery are normal. The distal P2 segment of the right posterior cerebral artery is occluded. Anterior, middle, and posterior cerebral complexes are otherwise unremarkable. No identifiable aneurysm or high flow vascular lesion. Other: Soft tissues of neck including the thyroid gland are normal. No pathologically enlarged cervical lymph nodes. Lung apices are clear. There is advanced multilevel degenerative spondylosis of the cervical spine with severe canal stenosis at the level of C5-C6. There is likely compression of the cervical spinal cord at this level. At least moderate canal stenosis is visualized at multiple additional levels. CT/CT angio head neck IMPRESSION: There is a chronic cortical infarct involving the vascular territory the right posterior cerebral artery. Scattered chronic small vessel ischemic changes are also visualized within the periventricular white matter and cerebellum. There is a dome-shaped mass at the lateral aspect of the right anterior clinoid process that may represent a small meningioma measuring 0.9 cm in diameter. Otherwise no abnormal mass or enhancement visualized elsewhere within the intracranial compartment. There is 25% stenosis of the origin of left internal carotid artery. The left vertebral artery is occluded along its C3 segment and there is reconstitution of contrast filling the distal left vertebral artery that is likely secondary to cross filling via the basilar. The right carotid artery and right vertebral artery are widely patent. the distal P2 segment of the right posterior cerebral artery is occluded. Otherwise no intracranial large vessel occlusion. There is advanced multilevel degenerative spondylosis of the cervical spine with severe canal stenosis and likely compression of the cervical spinal cord at the level of C5-C6. At least moderate canal stenosis is visualized at multiple additional levels. A dedicated cervical spine MRI is recommended for better anatomic characterization of the cord and canal.
--- NOTE | ~2024-05-15 | MR_ITS ---
EXAMINATION: MR BRAIN WITHOUT CONTRAST CLINICAL INFORMATION: Weakness. Evaluate for stroke. COMPARISON: CT head 05/15/2024. TECHNIQUE: MRI of the brain was obtained using routine sequences without contrast. FINDINGS: There chronic changes related to an old infarct within the vascular territory of the right posterior cerebral artery. There is also a small chronic left cerebellar infarct and scattered chronic small vessel ischemic changes within the periventricular white matter and meli. No acute territorial infarct. No pathological magnetic susceptibility artifact. Intracranial vascular flow voids are maintained. There is no intracranial mass effect or midline shift. No abnormal extra axial collection. Lateral and third ventricles are normal. No hydrocephalus. Although only partially included within the [id number] of this examination there is multilevel degenerative spondylosis of the cervical spine with at least mild canal stenosis at C3-C4. Midline anatomy is otherwise unremarkable. No acute bone marrow signal changes. There is a small volume of fluid partially filling a pneumatized left petrous apex. Otherwise no mastoid or middle ear effusion. No active paranasal sinus disease. Globes and orbits are symmetric. MR/MR head/brain wo con IMPRESSION: There are chronic changes related to an old infarct within the vascular territory of the right posterior cerebral artery. There is also a small chronic left cerebellar infarct and scattered chronic small vessel ischemic changes within the periventricular white matter and meli. No evidence of acute territorial infarct or hemorrhage. Incidentally there is a small volume of fluid located within a pneumatized left petrous apex.
--- NOTE | ~2024-05-15 | XR_ITS ---
EXAMINATION: XR CHEST CLINICAL INFORMATION: Chest pain COMPARISON: 02/28/2016 TECHNIQUE: 2 views of the chest were obtained. FINDINGS: No significant abnormality is noted involving the heart, lungs, mediastinum, bony thorax or soft tissues. XR/XR chest 2V IMPRESSION: Unremarkable examination.
--- NOTE | ~2024-05-15 | CT_ITS ---
EXAMINATION: CT HEAD WITHOUT CONTRAST CLINICAL INFORMATION: Headache, dizziness, patient on Coumadin COMPARISON: 05/10/2016 TECHNIQUE: Contiguous axial imaging was performed from the skull base to vertex without intravenous administration of contrast. This CT examination was performed using dose optimization techniques as appropriate, variously including the following: *Automated exposure control *Adjustment of mA and/or kV according to patient size (this includes techniques or standardized protocols for targeted exams where dose is matched to indication/reason for exam; i.e. extremities or head) *Use of iterative reconstruction technique DLP: 733 mGy-cm FINDINGS: There is no evidence of acute intracranial hemorrhage, masses, mass effect, hemorrhagic or ischemic stroke. Seen on the previous examination multiple areas of periventricular low-attenuation consistent with sequela of small vessel disease and area of low attenuation in the right occipital lobe and patchy extremities or cerebellum due to old strokes are stable. Ventricles and sulci are mildly dilated secondary to global volume loss. Osseous structures are unremarkable. Paranasal sinuses and mastoids are well aerated. CT/CT head/brain wo IV con IMPRESSION: No evidence of intracranial hemorrhage. Sequela of previous ischemic changes in the strokes and global volume loss. No interval change
--- NOTE | ~2024-05-15 | MR_ITS ---
EXAMINATION: MR CERVICAL SPINE WITHOUT CONTRAST CLINICAL INFORMATION: Cord compression. COMPARISON: CTA head and neck from 05/15/2024. TECHNIQUE: MRI of the cervical spine was obtained using routine sequences without contrast. FINDINGS: Mild reversal normal cervical lordosis centered within C4-C5. Ankylosis of C4-C5. Moderate degenerative stepwise anterolisthesis of C2-C4. Moderate degenerative stepwise anterolisthesis of C7-T5. Advanced degenerative disc disease from C2-T3. Associated mixed Modic type discogenic endplate changes including mild Modic type I discogenic edema at C3-C4 and from C5-C7. Moderate marrow edema within the left atlantoaxial articulation consistent with degenerative stress reaction. No additional suspicious marrow edema. The vertebral body heights are largely maintained. There appears to be faint T2 hyperintensity within the spinal cord at the levels of C3-C4 and C5-C6. No additional spinal cord signal abnormalities. Limited evaluation of the soft tissues of the neck without demonstrated abnormalities. The flow voids of the major cervical vessels are maintained. Normal appearance of the cervicomedullary junction and visualized posterior fossa. SPINAL LEVELS: C2-C3: Moderate disc-osteophyte complex. There is severe right and mild left uncovertebral joint arthropathy. There is severe bilateral facet joint arthropathy. There is severe right and moderate left neural foraminal stenosis. There is mild spinal canal stenosis. C3-C4: Prominent disc-osteophyte complex. There is severe right worse than left uncovertebral joint arthropathy. There is severe bilateral facet joint arthropathy. There is severe bilateral neural foraminal stenosis. There is severe spinal canal stenosis. C4-C5: Moderate disc-osteophyte complex. There is moderate bilateral uncovertebral joint arthropathy. There is severe right and moderate left facet joint arthropathy. There is moderate right and mild left neural foraminal stenosis. There is no spinal canal stenosis. C5-C6: Prominent disc-osteophyte complex. There is severe bilateral uncovertebral joint arthropathy. There is moderate bilateral facet joint arthropathy. There is severe bilateral neural foraminal stenosis. There is severe spinal canal stenosis. C6-C7: Prominent disc-osteophyte complex eccentric to the left. There is severe bilateral uncovertebral joint arthropathy. There is moderate bilateral facet joint arthropathy. There is severe left worse than right neural foraminal stenosis. There is moderate to severe spinal canal stenosis. C7-T1: Moderate disc-osteophyte complex. There is moderate bilateral uncovertebral joint arthropathy. There is severe left worse than right facet joint arthropathy. There is moderate to severe bilateral neural foraminal stenosis. There is no spinal canal stenosis. MR/MR cervical spine wo con IMPRESSION: 1. Advanced multilevel degenerative spondyloarthropathy of the cervical spine as described in detail above. Most notably, there are severe spinal canal stenoses at C3-C4, C5-C6, and C6-C7. Mild spinal canal stenosis at C2-C3. Moderate to severe neural foraminal stenoses from C2-T1. 2. There appears to be mild myelomalacia within the spinal cord at the levels of C3-C4 and C5-C6.
[2024-05-15 06:50] LABS: Basophils Absolute Auto 0.1 X10*3/uL (0.0-0.2); Basophils Percent Auto 1.4 % (0-2); Eosinophils Absolute Auto 0.1 X10*3/uL (0.0-0.4); Eosinophils Percent Auto 2.5 % (0-4); Hematocrit 42.1 % (37.0-47.0); Hemoglobin 14.1 g/dl (12.0-16.0); Imm Gran Abs Auto 0.02 X10*3/uL (0.00-0.03); Imm Gran Pct Auto 0.5 % (0.0-0.4); Lymphocytes Absolute Auto 1.3 X10*3/uL (1.2-4.9); Lymphocytes Percent Auto 29.6 % (20-40); MANUAL DIFF FLAG NO; Mean Corpuscular HGB Conc 33.5 g/dl (31.0-35.0); Mean Corpuscular Hemoglobin 30.3 pg (27.0-33.0); Mean Corpuscular Volume 90.5 fL (80.0-98.0); Mean Platelet Volume 11.3 fL (9.4-12.3); Monocytes Absolute Auto 0.4 X10*3/uL (0.1-1.2); Neutrophils Absolute Auto 2.4 x10*3/uL (2.0-8.3); Platelet Count 149 X10*3/uL (160-400); Red Blood Count 4.65 X10*6/uL (4.20-5.50); Red Cell Distribution Width 14.5 % (11.0-16.0); White Blood Count 4.3 X10*3/uL (4.8-10.8)
--- OUTSIDE RECORDS SUMMARY | 2024-05-15 07:03 | XMS_ITS | Patient Health Record ---
Author Organization [facility] Address [address] [place] [address] Care Team Providers Care Shank Turner Name Role Phone Frederick Sapp Primary Care Provider Unavailab Jose Lemos Unavailable [phone] TONI GODDARD Unavailable Unavailable ALLERGIES Allergen (clinical drug ingredient) Drug/Non Drug Allergy documented on EMR Reaction Allergy Type Onset Date Status clindamycin Clindamycin HCl Unknown Drug Allergy Active cephalexin Cephalexin Unknown Drug Allergy Activ e povidone-iodine Betadine Unknown Drug Allergy A ctive Gluten gluten (uncoded) Unknown Allergy Act maryan gabapentin Neurontin hives Drug Allergy Active morphine Morphine Sulfate rash Drug Allergy Active Iodine Unknown Drug Allergy Active RESULTS Component Value Reference Range Notes Liver Panel Reviewed date:07/29/2023 08:25:09 AM Interpretation: Performing Lab:[facility], [address] [place] [phone] Notes/Report: Bilirubin Total 0.9 0.0-1.0 mg/dL Bilirubin Direct 0.3 0.0-0.5 mg/dL Aspartate Amino Transferase 23 5-31 U/L Alanine Aminotransferase 15 0-31 U/L Total Protein 5.9 6.5-8.0 g/dL Albumin Level 3.8 3.5-5.0 g/dL Alkaline Phosphatase 63 39-117 U/L Liver Panel Reviewed date:09/15/2023 06:01:57 PM Interpretation: Performing Lab:[facility], [address] [place] [phone] Notes/Report: Bilirubin Total 1.0 0.0-1.0 mg/dL Bilirubin Direct 0.4 0.0-0.5 mg/dL Aspartate Amino Transferase 27 5-31 U/L Alanine Aminotransferase 14 0-31 U/L Total Protein 6.0 6.5-8.0 g/dL Albumin Level 3.9 3.5-5.0 g/dL Alkaline Phosphatase 63 39-117 U/L Vitamin D 25-OH Total Reviewed date:09/12/2023 10:33:24 PM Interpretation: Performing Lab:[facility], [address] [place] [phone] Notes/Report: Vitamin D 25-OH Total 64.6 >30 ng/mL Health Based Reference Values* < 20 ng/mL Deficient 20-30 ng/mL Insufficient > 30 ng/mL Sufficient *Ketty ALVAREZ. N Engl J Med. 2007;357:266-280 Care must be taken in interpreting Vitamin D results from different laboratories and methodologies. Published data demonstrated that results from patients undergoing hemodialysis may show a negative bias when tested with various automated 25-OH vitamin D assays when compared to LC-MS/MS. When testing samples from patients whose predominant form of Vitamin D is Vitamin D2, such as patients receiving Vitamin D2 supplementation, results that are subtherapeutic should be confirmed with another method such as LC-MS/MS. Liver Panel Reviewed date:01/04/2024 07:53:26 AM Interpretation: Performing Lab:[facility], [address] [place] [phone] Notes/Report: Bilirubin Total 0.8 0.0-1.0 mg/dL Bilirubin Direct 0.4 0.0-0.5 mg/dL Aspartate Amino Transferase 26 5-31 U/L Alanine Aminotransferase 17 0-31 U/L Total Protein 5.9 6.5-8.0 g/dL Albumin Level 3.8 3.5-5.0 g/dL Alkaline Phosphatase 65 39-117 U/L Liver Panel Reviewed date:04/25/2024 11:23:13 PM Interpretation: Performing Lab:[facility], [address] [place] [phone] Notes/Report: Bilirubin Total 0.9 0.0-1.0 mg/dL Bilirubin Direct 0.3 0.0-0.5 mg/dL Aspartate Amino Transferase 26 5-31 U/L Alanine Aminotransferase 18 0-31 U/L Total Protein 6.4 6.5-8.0 g/dL Albumin Level 4.0 3.5-5.0 g/dL Alkaline Phosphatase 73 39-117 U/L REASON FOR REFERRAL No Information MEDICATIONS Medication SIG (Take, Route, Fr equency, Duration) Notes Start Date End Date Status predniSONE 5 MG 1 tablet Orally Once a day for 90 days 05/25/2023 Active Vitamin D3 Active Zinc Active predniSONE 5 MG TAKE 1 TABLET BY LIANA TH EVERY DAY for 30 Active coumadin 1 tab Oral as directed Active predniSONE 5 MG 1 tablet Orally Once a day for 30 day(s) 09/11/2022 Active predniSONE 2.5 MG TAKE 1 TABLET BY LIANA TH EVERY OTHER DAY, ALTERNATING WITH 5MG PREDNISONE TABLET EVERY OTHER DAY for 60 Active Magnesium 1 capsule with a lance l Orally Once a day Active Dulcolax 5 MG 1 tablet as needed O rally Once a day PRN Active Calcium Active IMMUNIZATIONS Vaccine Route Administration Date Status Comme nts Flu vaccine no Preserv 3 and > Unknown 08/08/2018 Admin istered Influenza Unknown 07/31/2019 Administered Influenza Unknown 08/05/2020 Administered SOCIAL HISTORY Tobacco Use: Social History Observation Description Date Details (start date - stop date) Former Smoker NA - NA Sex Assigned At : Social History Observation Description Sex Assigned At Unknown Tobacco Use/Smoking Question Answer Notes Patient is a former smoker When did you stop smoking? 1973 How long has it been since you last smoked? > 10 years Alcohol Screen Question Answer Notes Did you have a drink containing alcohol in the p ast year? No Points 0 Interpretation Negative PROBLEMS Problem Type ICD Code Onset Dates Problem Status W/U Status Risk SNOMED Code Notes Problem Autoimmune hepatitis (K75.4) Active confirmed 533755025 Problem Hypertension, unspecified type (I10) Active confirmed 18142623 Problem Elevated liver enzymes (R74.8) Active confirmed 042688182 Problem Elevated liver function tests (R94.5) Active confirmed Elevated liver enzymes level (529107519) Encounters Encounter Location Date Provider Diagnosis [facility] [address] [place] [phone] 05/25/2023 Jose Salgado [facility] [address] [place] [phone] 07/28/2023 Jose Salgado Autoimmune hepatitis K75.4 [facility] [address] [place] [phone] [facility] [address] [place] [address] 09/26/2023 Jose Salgado [facility] [address] [place] [address] 04/26/2024 Jose Salgado Autoimmune hepatitis K75.4 ASSESSMENTS Encounter Date Diagnosis Assessment Notes Treatment Notes Treatment Clinical Notes 07/28/2023 Autoimmune hepatitis (ICD-10 - K75.4) 04/26/2024 Autoimmune hepatitis (ICD-10 - K75.4) PLAN OF TREATMENT Pending Test Test Name Order Date CHEM 7 PROFILE 07/16/2018 CHEM 7 PROFILE 07/04/2018 CHEM 7 PROFILE 08/10/2018 LIVER PROFILE 03/18/2019 LIVER PROFILE 08/10/2018 LIVER PROFILE 04/05/2023 LIVER PROFILE 09/03/2020 LIVER PROFILE 04/04/2019 LIVER PROFILE 09/07/2018 LIVER PROFILE 07/28/2023 LIVER PROFILE 07/16/2018 LIVER PROFILE 09/16/2020 LIVER PROFILE 07/04/2018 LIVER PROFILE 04/17/2019 LIVER PROFILE 01/22/2019 LIVER PROFILE 04/26/2024 LIVER PROFILE 10/02/2020 LIVER PROFILE 05/17/2019 LIVER PROFILE 02/08/2019 LIVER PROFILE 10/16/2020 LIVER PROFILE 03/19/2020 LIVER PROFILE 02/23/2019 LIVER PROFILE 12/18/2020 LIVER PROFILE 08/25/2020 AMMONIA 07/04/2018 CBC w DIFF 07/16/2018 CBC w DIFF 07/04/2018 PROTHROMBIN TIME (PT, INR) 07/16/2018 PROTHROMBIN TIME (PT, INR) 07/04/2018 Insurance Providers Payer Name Payer Address Payer Phone Subscriber Number Group Number Insured Name Patient Relationship to Insured Coverage Start Date Coverage End Date MEDICARE OF [place] [address] [place] [address] [id number] GIOVANY HER Self - patient is the insured [employer] ATT[employer] CLAIMS [address] [place] [address] [id number] GIOVANY HER Self - patient is the insured MEDICAL (GENERAL) HISTORY Medical History History ICD Code Autoimmune hepatitis with ja undice---diagnosed by liver biopsy in 05/2018--there was no fibrosis or cirrhosis--she had positive autoimmune markers as well--treated with prednisone with good effect---remainder of liver w/u was negative--- CAT scan and MRI of the abdomen was negative for any sign of liver mass nor biliary obstruction. Had a flareup of the autoimmune hepatitis in 12/2018 requiring prednisone 30mg daily with a 5 mg/week taper with rapid improvement. She has been on a regimen of prednisone 5 mg every other day since the middle of Feb, 2019. In August of 2019 I changed her prednisone regimen to 5 mg alternating with 2.5 mg every other day, rather than 5 mg every other day. The prednisone was changed to 2.5 mg daily in December of 2019. Prednisone was increased to 5 mg daily in 08/2020 and she stopped her Cymbalta with stabilization and almost normalization of her liver enzymes. Denies HI,Lung disease,renal disease Antiphospholipid antibody sy ndrome--2 stroke and 3 TIA's--2015--followed by Dr. 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 Gallstones noted during her 2018 workup for the autoimmune hepatitis. MRCP was negative and the stones have remained asymptomatiic. She is aware of the diagnosis of gallstones Surgical History Surgery Date(Month/Year) Spinal fusion 1959 Left knee replacement 2006 Right knee replacement 2006 Left hip replacement 2010 Lumpectomy breast cancer on the left--XR T 2003 Tonsillectomy age 5
[2024-05-15 07:04] LABS: Alanine Aminotransferase 15 U/L (0-31); Albumin Level 3.6 g/dL (3.5-5.0); Alkaline Phosphatase 66 U/L (39-117); Anion Gap 13 (12-20); Aspartate Amino Transferase 20 U/L (5-31); Bilirubin Total 0.4 mg/dL (0.0-1.0); Blood Urea Nitrogen 25 mg/dL (9-16); Calcium 9.2 mg/dL (8.4-10.2); Carbon Dioxide 21 mmol/L (22-29); Chloride 112 mmol/L (96-108); Creatinine Clr Calc Pharmacy 62.8; Estimated Glomerular Filt Rate > 60; Glucose Random 136 mg/dL (60-115); Potassium 3.9 mmol/L (3.3-5.1); Sodium 142 mmol/L (135-145); Total Protein 5.8 g/dL (6.5-8.0)
[2024-05-15 07:10] LABS: Troponin-I High Sensitivity 3.7 ng/L (<3.5-17.0)
--- NOTE | 2024-05-15 07:13 | ED_ITS ---
HPI - Dizziness General Chief Complaint: Dizziness Stated Complaint: CHEST PRESSURE/PAIN, HX OF STROKE Time Seen by Provider: 05/15/24 06:56 Source: patient and EMS Mode of arrival: ambulatory Limitations: no limitations History of Present Illness HPI Narrative: 83 year old female PMH: Antiphospholipid syndrome hyperlipidemia on Coumadin breast cancer multiple CVAs autoimmune hepatitis depression who presents to emergency department for chest pain as well as headaches for months. Her chest pain resolved prior to arrival she denies any fevers chills cough nausea vomiting diarrhea. Is no associated shortness of breath she is not tachycardic or hypoxic on arrival. She states that for the past 2 days she has felt like her knees would give out from underneath her and that she has had some intermittent palpitations but denies any falls she lives alone she states she has had previous stroke and multiple TIAs back 2016 in the found that she had antiphospholipid syndrome and was started on anticoagulants her INR is 2.8 yesterday. Patient states her symptoms started yesterday she tried to walk them off hoping he would go away but they have been continuously worse today so she was sent to come in for evaluation Related Data Home Medications ?Medication ?Instructions ?Recorded ?Confirmed cholecalciferol (vitamin D3) 25 25 mcg PO DAILY 09/05/20 03/14/24 mcg (1,000 unit) capsule (Vitamin D3) magnesium oxide 250 mg PO DAILY 09/05/20 03/14/24 cider [id number] 300 tab PO DAILY 03/23/23 03/14/24 mg-8.3 mg tablet docusate sodium 50 mg capsule 50 mg PO DAILY PRN 03/23/23 03/14/24 multivitamin 1 tab PO DAILY 03/23/23 03/14/24 Previous Rx's ?Medication ?Instructions ?Recorded warfarin 3 mg tablet 1 tab PO DAILY #90 tabs 11/22/23 prothrombin time test strips #48 ea 03/14/24 (Coaguchek XS strips) Allergies Allergy/AdvReac Type Severity Reaction Status Date / Time cephalexin [CEPHALEXIN] Allergy Severe ANAPHYLAXIS Verified 05/15/24 06:35 morphine [MORPHINE] Allergy Intermediate RASHES AND Verified 05/15/24 06:35 HIVES, hives benzocaine Allergy Unknown Unknown Verified 05/15/24 06:35 clindamycin [CLINDAMYCIN] Allergy Unknown ANAPHYLAXIS Verified 05/15/24 06:35 gabapentin [GABAPENTIN] Allergy Unknown HIVES Verified 05/15/24 06:35 gluten [GLUTEN] Allergy Unknown NAUSEA & Verified 05/15/24 06:35 VOMITING oxycodone [OXYCODONE] Allergy Unknown RASH, hives Verified 05/15/24 06:35 povidone-iodine Allergy Unknown RASH Verified 05/15/24 06:35 [From BETADINE] soap [From BETADINE] Allergy Unknown UNKNOWN Verified 05/15/24 06:35 Clindamycin HCl Allergy Unknown anaphylaxis Uncoded 05/15/24 06:35 Gluten Allergy Unknown rashes,hive Uncoded 05/15/24 06:35 s,diarrhea Review of Systems 2 Review of Systems: Review of systems: General: Patient denies any fever chills recent illness or falls Musculoskeletal: Denies back pain or body aches or other injuries HEENT: denies headache, runny nose, ear pain Respiratory: denies shortness of breath, cough Cardiovascular: no chest pain or palpitations : denies dysuria, frequency Abdomen: no nausea vomiting denies abdominal pain Extremities: no swelling, no pain Skin: no diaphoresis Yes all other systems are reviewed and are negative PMFSH Past Medical History Medical History Adult general medical exam Screening for diabetes mellitus Stroke Rheumatoid arthritis Breast cancer HTN (hypertension) Surgical History H/O spinal fusion History of bilateral knee replacement History of hip replacement H/O lumpectomy Family History Family History Father Stented coronary artery Stroke Mother Parkinson disease Social History Social History Household Members: None Housing: House Alcohol intake: never Patient Tobacco Use Status: Former Tobacco user Tobacco use type: Cigarette Years Smoked: quit in 1972 Smoked in Last 30 Days: No e-Cigarette/Vaping Use: Never Used Second Hand Smoke Exposure: No Use of substances other than those prescribed or required for medical reasons: Yes Substance Use Type: Marijuana Advance Directives: Yes Advance Directives on File: Yes Advance Directives Date on File: 10/29/22 service: No Current occupational status: disabled Cognitive needs: Yes Hearing needs: No Vision needs: Yes Physical Exam 2 Vital Signs: Vital Signs: Last Vital Signs Temp 98.8 F 05/15/24 06:25 Pulse 90 05/15/24 07:45 Resp 18 05/15/24 07:45 BP 163/85 H 05/15/24 07:45 Pulse Ox 98 05/15/24 07:45 O2 Del Method Room Air 05/15/24 07:45 BMI result Body Mass Index 33.1 Neurological exam: CN II- XII tested. Patient is alert and oriented to person place and time. Patient has no dysphagia or dysarthia, denies good vision in all four vision fletcher no nystagmus on exam, good strength to upper and lower extremities with normal reflexes to brachioradialis, wrist, patella and achilles. Negative romberg, good finger to nose and heel to verma. General: Well-appearing well-nourished in no signs of distress HEENT: Normocephalic atraumatic Neck: No signs of JVD, no masses no tenderness or lymphadenopathy Cardiovascular: Regular rate and rhythm Respiratory: Clear to auscultation bilaterally Abdomen: Soft nontender no masses Extremities: Normal pedal pulses no signs of edema Skin: Dry warm no rashes Back: No tenderness full ROM Course Course Course Narrative: Patient was able ambulate here her symptoms she states started yesterday CT is negative labs are unremarkable I feel the patient likely benefit from admission for stroke workup MRI and reassessment on the patient does have aspirin at this time. Medications Administered Discontinued Medications Generic Name Dose Route Start Last Admin Trade Name Lily PRN Reason Stop Dose Admin Aspirin 324 mg 05/15/24 08:02 05/15/24 08:08 Aspirin 81 Mg Tab.Chew PO 05/15/24 08:03 324 mg ONCE ONE Administration Sodium Chloride 1,000 mls @ 999 mls/hr 05/15/24 07:15 05/15/24 08:08 Ns IV 05/15/24 08:15 999 mls/hr .Q1H1M MEMO Administration Medical Decision Making Medical Decision Making [facility] Narrative: The patient for CT check labs x-ray and reassess patient was able to ambulate with walker. I can not rule out posterior circulation CT labs done so far I do feel the patient likely benefit she states she has posterior circulation strokes in the past with admission Differential Diagnosis Differential Diagnoses: The differential diagnosis associated with the presentation includes ACS dehydration anemia electrolyte abnormality posterior circulation stroke Admission/Observation Consideration of admission/observation: Escalation of care including admission/observation considered Consult Healthcare Provider Management of the patient was discussed with: Hospitalist Briana finley with Dr. Bender who agreed with admission Lab Data MDM Lab Attestation statement: I reviewed the patient's lab results. 05/15/24 06:44 05/15/24 06:44 Labs: Lab Results 05/15/24 05/15/24 05/15/24 Range/Units 06:44 06:45 07:47 WBC 4.3 L (4.8-10.8) X10*3/uL RBC 4.65 (4.20-5.50) X10*6/uL Hgb 14.1 (12.0-16.0) g/dl Hct 42.1 (37.0-47.0) % MCV 90.5 (80.0-98.0) fL MCH 30.3 (27.0-33.0) pg MCHC 33.5 (31.0-35.0) g/dl RDW 14.5 (11.0-16.0) % Plt Count 149 L (160-400) X10*3/uL MPV 11.3 (9.4-12.3) fL Immature Gran % (Auto) 0.5 H (0.0-0.4) % Neut % (Auto) 56.0 (45-73) % Lymph % (Auto) 29.6 (20-40) % [place] % (Auto) 10.0 (2-11) % Eos % (Auto) 2.5 (0-4) % Baso % (Auto) 1.4 (0-2) % Lymph # (Auto) 1.3 (1.2-4.9) X10*3/uL [place] # (Auto) 0.4 (0.1-1.2) X10*3/uL Eos # (Auto) 0.1 (0.0-0.4) X10*3/uL Baso # (Auto) 0.1 (0.0-0.2) X10*3/uL Abs Immat Gran (auto) 0.02 (0.00-0.03) X10*3/uL Absolute Neuts (auto) 2.4 (2.0-8.3) x10*3/uL Absolute Nucleated RBC 0.000 (0.0-0.012) X10*3/uL Nucleated RBC % (auto) 0.0 (0.0-0.2) /100WBC PT 25.2 H (11.1-13.3) SEC INR 2.1 H (0.9-1.1) Sodium 142 (135-145) mmol/L Potassium 3.9 (3.3-5.1) mmol/L Chloride 112 H (96-108) mmol/L Carbon Dioxide 21 L (22-29) mmol/L Anion Gap 13 (12-20) BUN 25 H (9-16) mg/dL Creatinine 0.82 (0.5-1.4) mg/dL Estim Creat Clear Calc 62.8 Estimated GFR > 60 Random Glucose 136 H (60-115) mg/dL Calcium 9.2 (8.4-10.2) mg/dL Total Bilirubin 0.4 (0.0-1.0) mg/dL Direct Bilirubin 0.1 (0.0-0.5) mg/dL AST 20 (5-31) U/L ALT 15 (0-31) U/L Alkaline Phosphatase 66 (39-117) U/L Troponin I High Sens 3.7 (<3.5-17.0) ng/L Total Protein 5.8 L (6.5-8.0) g/dL Albumin 3.6 (3.5-5.0) g/dL Lipase 34 (8-78) U/L Urine Color Yellow Urine Appearance Clear Urine pH 7.0 (5.0-9.0) Ur Specific [place] <= 1.005 (1.005-1.025) Urine Protein Negative (Neg-Trace) mg/dL Urine Glucose (UA) Negative (Negative) mg/dL Urine Ketones Negative (Negative) mg/dL Urine Blood Negative (Negative) Urine Nitrite Negative (Negative) Ur Leukocyte Esterase Negative (Negative) Independent Interpretation I performed an independent interpretation of an: EKG, Plain X-Ray and CT Scan Radiology Impression Discussion of test interpretation with radiology: I have reviewed the radiologist's reading. Independent Historian Clinical information obtained from an independent historian. History obtained from or confirmed by: EMS External Record Review External record reviewed: Inpatient record, Office record and Outpatient record Chronic Conditions Patient?s care impacted by: Cancer Antiphospholipid syndrome depression Critical Care Time Critical Care Time Critical Care Time: Yes Total Critical Care Time: 35 Attestation: stroke workup dizziness weakness and concern for posterior circulation stroke Discharge Plan Discharge Clinical Impression: Weakness, Dizziness, TIA (transient ischemic attack) Patient Disposition: Admitted As Inpatient Print Language: Kuwaiti
--- NOTE | 2024-05-15 07:32 | PC.NURSE ---
assumed care of pt at 0645, pt resting in bed with no complaints, plan to go to CT. pt ambulated to the bathroom using a walker with a slow but steady gait. urine sample obtained.
[2024-05-15 07:43] LABS: Bilirubin Direct 0.1 mg/dL (0.0-0.5); Lipase 34 U/L (8-78)
[2024-05-15 07:54] LABS: Appearance Urine Clear; Color Urine Yellow; Glucose Urine UA Negative (Negative); Leukocyte Esterase Urine Negative (Negative); Nitrite Urine Negative (Negative); Specific Gravity - Urine <= 1.005 (1.005-1.025); Urine Blood Negative (Negative); Urine Ketones Negative (Negative); Urine Protein Negative (Neg-Trace)
[2024-05-15 07:54] LABS: INTERNATIONAL NORM RATIO 2.1 (0.9-1.1); Prothrombin Time 25.2 SEC (11.1-13.3)
[2024-05-15] MEDS: 0.9 % Sodium Chloride 1,000 ML 999 ML IV (08:08)
[2024-05-15] MEDS: Aspirin 81 MG TAB.CHEW 324 MG PO (08:08)
--- NOTE | 2024-05-15 08:55 | PHA.MEDREC ---
Pharmacy Consult ? Medication Reconciliation Pharmacy has completed the medication reconciliation.Spoke to patient at bedside. Confirmed their home meds, notably taking prednisone 5mg and 2.5mg on alternating days. Had Prednisone 2.5mg yesterday so today is due for a 5mg dose. Stated she also takes a B-12 gummy and a combination magnesium, zinc, copper, and calcium supplement but unsure of dose.
--- NOTE | 2024-05-15 10:58 | P.HPHOSP_ITS ---
History of Present Illness Date of Service: 05/15/24 Attending physician on admission: Derrek Rose Chief Complaint: weakness, dizziness 83 year old female with history of RA on chronic prednisone, htn, hx left sided breast cancer s/p radiation and lumpectomy, hx cva, antiphospholipid syndrome on coumadin presented to the ED for evaluation of lightheadedness, palpitations, chest discomfort, and generalized weakness feeling like her knees were going to buckle starting tuesday and resolving yesterday. She also states she felt fuzzy cognitively. Has a history of posterior stroke and was concerned of recurrence so called EMS today. Last known well time tuesday morning. She reports the dizziness as a feeling of lightheadedness/like she was going to pass out and needed to sit down, denies vertigo. No facial droop, slurred speech, unilateral weakness/paresthesias. She is currently asymptomatic. Vitals stable, sheeba hypertensive 163/85. Hematology studies unremarkable. Renal fx normal, lytes normal except cl 112. glucose 136. Trop 3.7. UA unremarkable. Head ct negative for acute intracranial abnormality, but shows sequela of prior ischemic changes and global volume loss. CXR unremarkable. In the ED, given IVF and 324mg asa. ED discussed case with neurology recommending pt being admitted for stroke rule out. Review of Systems 2 Review of Systems: Yes all other systems are reviewed and are negative [facility] Medical History Adult general medical exam Screening for diabetes mellitus Stroke Rheumatoid arthritis Breast cancer HTN (hypertension) Family History Father Stented coronary artery Stroke Mother Parkinson disease Surgical History H/O spinal fusion History of bilateral knee replacement History of hip replacement H/O lumpectomy Social History Household Members: None Housing: House Alcohol intake: never Patient Tobacco Use Status: Former Tobacco user Tobacco use type: Cigarette Years Smoked: quit in 1972 Smoked in Last 30 Days: No e-Cigarette/Vaping Use: Never Used Second Hand Smoke Exposure: No Use of substances other than those prescribed or required for medical reasons: Yes Substance Use Type: Marijuana Advance Directives: Yes Advance Directives on File: Yes Advance Directives Date on File: 10/29/22 service: No Current occupational status: disabled Cognitive needs: Yes Hearing needs: No Vision needs: Yes Meds Allergies Allergy/AdvReac Type Severity Reaction Status Date / Time cephalexin [CEPHALEXIN] Allergy Severe ANAPHYLAXIS Verified 05/15/24 06:35 morphine [MORPHINE] Allergy Intermediate RASHES AND Verified 05/15/24 06:35 HIVES, hives benzocaine Allergy Unknown Unknown Verified 05/15/24 06:35 clindamycin [CLINDAMYCIN] Allergy Unknown ANAPHYLAXIS Verified 05/15/24 06:35 gabapentin [GABAPENTIN] Allergy Unknown HIVES Verified 05/15/24 06:35 gluten [GLUTEN] Allergy Unknown NAUSEA & Verified 05/15/24 06:35 VOMITING oxycodone [OXYCODONE] Allergy Unknown RASH, hives Verified 05/15/24 06:35 povidone-iodine Allergy Unknown RASH Verified 05/15/24 06:35 [From BETADINE] soap [From BETADINE] Allergy Unknown UNKNOWN Verified 05/15/24 06:35 Clindamycin HCl Allergy Unknown anaphylaxis Uncoded 05/15/24 06:35 Gluten Allergy Unknown rashes,hive Uncoded 05/15/24 06:35 s,diarrhea Active Medications: Current Medications Acetaminophen (Acetaminophen 325 Mg Tablet) 650 mg PO Q6H PRN PRN Reason: Pain, Mild (Pain Scale 1-3), fever or headache Aspirin (Aspirin Enteric Coated 81 Mg Tablet.Dr) 81 mg PO DAILY [facility] Atorvastatin Calcium (Atorvastatin Calcium 80 Mg Tablet) 80 mg PO DAILY [facility] Calcium Carbonate (Calcium Carbonate 750 Mg Tab.Chew) 750 mg PO Q4H PRN PRN Reason: Heartburn Magnesium Hydroxide (Milk Of Magnesia 30 Ml Oral.Susp) 30 ml PO DAILY PRN PRN Reason: Constipation Melatonin (Melatonin 3 Mg Tablet) 6 mg PO BEDTIME PRN PRN Reason: Insomnia Sodium Chloride (0.9 % Sodium Chloride Flush 3 Ml Syringe) 3 ml IVFLUSH QSHIFT [facility] Home Medications ?Medication ?Instructions ?Recorded ?Confirmed ?Last Taken ?Type cholecalciferol (vitamin D3) 25 25 mcg PO DAILY 09/05/20 05/15/24 05/14/24 History mcg (1,000 unit) capsule (Vitamin D3) magnesium oxide 250 mg PO DAILY 1105/15/24 05/14/24 History cider [id number] 300 1 tab PO DAILY 03/23/23 05/15/24 05/14/24 History mg-8.3 mg tablet docusate sodium 50 mg capsule 50 mg PO DAILY PRN Constipation 03/23/23 05/15/24 05/14/24 History multivitamin 1 tab PO DAILY 03/23/23 05/15/24 05/14/24 History prednisone 2.5 mg tablet 2.5 mg PO Q48H 05/15/24 05/15/24 05/14/24 History prednisone 5 mg tablet 5 mg PO Q48H 05/15/24 05/15/24 05/14/24 History warfarin 3 mg tablet 1 tab PO BEDTIME 05/15/24 05/15/24 05/14/24 History Physical Exam 2 Vital Signs and Narrative: Vital Signs: Last Vital Signs Temp 98.8 F 05/15/24 06:25 Pulse 90 05/15/24 07:45 Resp 18 05/15/24 07:45 BP 163/85 H 05/15/24 07:45 Pulse Ox 98 05/15/24 07:45 O2 Del Method Room Air 05/15/24 07:45 BMI result Body Mass Index 33.1 Constitutional - Awake and Alert, No apparent distress Eyes - PERRLA, EOMI Cardiovascular - S1S2, RRR, No edema Respiratory - Normal lung expansion, Normal respiratory effort, No respiratory distress, CTA bilaterally Gastrointestinal - NT / ND; +BS; No rebound or guarding Extremities - no calf tenderness bilaterally, no swelling Skin - Warm/Dry Neurological - Alert & oriented x3, CN II-XII in tact, 5/5 strength BUE and BLE, negative romberg, normal finger to nose testing and heel to verma testing, gait is non-ataxic Psychological - Appropriate affect Results Labs 05/15/24 06:44 05/15/24 06:44 Labs: Laboratory Results - last 24 hr 05/15/24 05/15/24 05/15/24 06:44 06:45 07:47 MCV 90.5 MCH 30.3 MCHC 33.5 RDW 14.5 Plt Count 149 L MPV 11.3 Immature Gran % (Auto) 0.5 H Neut % (Auto) 56.0 Lymph % (Auto) 29.6 Ocean % (Auto) 10.0 Eos % (Auto) 2.5 Baso % (Auto) 1.4 Lymph # (Auto) 1.3 Ocean # (Auto) 0.4 Eos # (Auto) 0.1 Baso # (Auto) 0.1 Abs Immat Gran (auto) 0.02 Absolute Neuts (auto) 2.4 Absolute Nucleated RBC 0.000 Nucleated RBC % (auto) 0.0 PT 25.2 H INR 2.1 H Anion Gap 13 Estim Creat Clear Calc 62.8 Estimated GFR > 60 Random Glucose 136 H Calcium 9.2 Total Bilirubin 0.4 Direct Bilirubin 0.1 AST 20 ALT 15 Alkaline Phosphatase 66 Troponin I High Sens 3.7 Total Protein 5.8 L Albumin 3.6 Lipase 34 Urine Color Yellow Urine Appearance Clear Urine pH 7.0 Ur Specific Soldier <= 1.005 Urine Protein Negative Urine Glucose (UA) Negative Urine Ketones Negative Urine Blood Negative Urine Nitrite Negative Ur Leukocyte Esterase Negative Imaging Radiologist's Impressions: Impressions Head CT 05/15/24 07:37 IMPRESSION: No evidence of intracranial hemorrhage. Sequela of previous ischemic changes in the strokes and global volume loss. No interval change Chest X-Ray 05/15/24 07:42 IMPRESSION: Unremarkable examination. Assessment and Plan (1) Dizziness: Status: Acute (2) Weakness: Status: Acute Plan 83 year old female with history of RA on chronic prednisone, htn, hx left sided breast cancer s/p radiation and lumpectomy, hx cva, antiphospholipid syndrome on coumadin to be observed for lightheadedness and generalized weakness #Acute lightheadedness- resolved on admission -head ct negative for acute intracranial abnormality, brain mri ordered to eval for cva -stroke edu, neuro checks -continue asa 81 mg daily -continue coumadin, INR therapeutic -neurology consult -monitor on telemetry -lipid panel pending, atorvastatin 80mg daily -pt/ot #Generalized weakness- resolved -pt/ot eval #Antiphospholipid syndrome -continue coumadin, inr therapeutic, monitor daily #RA -continue prednisone, no acute flare dvt prophylaxis- lovenox full code Quality Stroke Does the patient have a stroke diagnosis?: No VTE Prior VTE?: No VTE Risk Level:: Medical - moderate - high VTE Device Contraindication: Treatment Not Indicated VTE Drug Contraindication: N/A - Med Ordered
[2024-05-15] MEDS: predniSONE 5 MG TABLET PO (11:09)
[2024-05-15 11:19] LABS: Cholesterol 160 mg/dL (<200); HDL Cholesterol 53 mg/dL (>40); LDL Cholesterol Calculated 91 mg/dL (<100); Triglycerides 83 mg/dL (<150)
--- NOTE | 2024-05-15 12:05 | P.CNNE_ITS ---
History of Present Illness Data of Consult Service Date: 05/15/24 Primary Care Provider: JORGITO Virk Reason for consult: Dizziness 83 years old woman who provided her own history stating that she suffered from antiphospholipid antibody syndrome and a stroke in the past came to hospital with symptoms of dizziness, unsteadiness, palpitation and chest pain. There was no complaint of double vision or loss of vision or focal weakness. She denied having any cold or flu-like illness. Because of her previous history she was being investigated for stroke. Review of Systems 2 Review of Systems: No recent cold or flu-like illness PMFSH Past Medical History Medical History Adult general medical exam Screening for diabetes mellitus Stroke Rheumatoid arthritis Breast cancer HTN (hypertension) Family History Family History Father Stented coronary artery Stroke Mother Parkinson disease Surgical History Surgical History H/O spinal fusion History of bilateral knee replacement History of hip replacement H/O lumpectomy Social History Social History Household Members: None Housing: House Alcohol intake: never Patient Tobacco Use Status: Former Tobacco user Tobacco use type: Cigarette Years Smoked: quit in 1972 Smoked in Last 30 Days: No e-Cigarette/Vaping Use: Never Used Second Hand Smoke Exposure: No Use of substances other than those prescribed or required for medical reasons: Yes Substance Use Type: Marijuana Advance Directives: Yes Advance Directives on File: Yes Advance Directives Date on File: 10/29/22 service: No Current occupational status: disabled Cognitive needs: Yes Hearing needs: No Vision needs: Yes Meds Allergies Allergy/AdvReac Type Severity Reaction Status Date / Time cephalexin [CEPHALEXIN] Allergy Severe ANAPHYLAXIS Verified 05/15/24 06:35 morphine [MORPHINE] Allergy Intermediate RASHES AND Verified 05/15/24 06:35 HIVES, hives benzocaine Allergy Unknown Unknown Verified 05/15/24 06:35 clindamycin [CLINDAMYCIN] Allergy Unknown ANAPHYLAXIS Verified 05/15/24 06:35 gabapentin [GABAPENTIN] Allergy Unknown HIVES Verified 05/15/24 06:35 gluten [GLUTEN] Allergy Unknown NAUSEA & Verified 07/16/24 06:35 VOMITING oxycodone [OXYCODONE] Allergy Unknown RASH, hives Verified 05/15/24 06:35 povidone-iodine Allergy Unknown RASH Verified 05/15/24 06:35 [From BETADINE] soap [From BETADINE] Allergy Unknown UNKNOWN Verified 05/15/24 06:35 Clindamycin HCl Allergy Unknown anaphylaxis Uncoded 05/15/24 06:35 Gluten Allergy Unknown rashes,hive Uncoded 05/15/24 06:35 s,diarrhea Active Medications: Current Medications Acetaminophen (Acetaminophen 325 Mg Tablet) 650 mg PO Q6H PRN PRN Reason: Pain, Mild (Pain Scale 1-3), fever or headache Aspirin (Aspirin Enteric Coated 81 Mg Tablet.Dr) 81 mg PO DAILY [facility] Atorvastatin Calcium (Atorvastatin Calcium 80 Mg Tablet) 80 mg PO DAILY [facility] Calcium Carbonate (Calcium Carbonate 750 Mg Tab.Chew) 750 mg PO Q4H PRN PRN Reason: Heartburn Docusate Sodium (Docusate Sodium 100 Mg/10 Ml Liquid) 50 mg PO DAILY PRN PRN Reason: Constipation Magnesium Hydroxide (Milk Of Magnesia 30 Ml Oral.Susp) 30 ml PO DAILY PRN PRN Reason: Constipation Magnesium Oxide (Magnesium Oxide 400 Mg Tablet) 400 mg PO DAILY [facility] Melatonin (Melatonin 3 Mg Tablet) 6 mg PO BEDTIME PRN PRN Reason: Insomnia Multivitamins/Vitamin C (Multivitamin Tablet) 1 tab PO DAILY [facility] Prednisone (Prednisone 2.5 Mg Tablet) 2.5 mg PO Q48H [facility] Prednisone (Prednisone 5 Mg Tablet) 5 mg PO Q48H [facility] Last Admin: 05/15/24 11:09 Dose: 5 mg Sodium Chloride (0.9 % Sodium Chloride Flush 3 Ml Syringe) 3 ml IVFLUSH QSHIFT [facility] Vitamin D (Cholecalciferol (Vitamin D3) 25 Mcg Tablet) 25 mcg PO DAILY [facility] Warfarin Sodium (Warfarin Sodium 3 Mg Tablet) 3 mg PO DAILY@1800 [facility] Home Medications ?Medication ?Instructions ?Recorded ?Confirmed ?Last Taken ?Type cholecalciferol (vitamin D3) 25 25 mcg PO DAILY 09/05/20 05/15/24 05/14/24 History mcg (1,000 unit) capsule (Vitamin D3) magnesium oxide 250 mg PO DAILY 09/05/20 05/15/24 05/14/24 History cider [id number] 300 1 tab PO DAILY 03/23/23 05/15/24 05/14/24 History mg-8.3 mg tablet docusate sodium 50 mg capsule 50 mg PO DAILY PRN Constipation 03/23/23 05/15/24 05/14/24 History multivitamin 1 tab PO DAILY 03/23/23 05/15/24 05/14/24 History prednisone 2.5 mg tablet 2.5 mg PO Q48H 05/15/24 05/15/24 05/14/24 History prednisone 5 mg tablet 5 mg PO Q48H 05/15/24 05/15/24 05/14/24 History warfarin 3 mg tablet 1 tab PO BEDTIME 05/15/24 05/15/24 05/14/24 History Physical Exam 2 Vital Signs: Vital Signs: Last Vital Signs Temp 98.8 F 05/15/24 06:25 Pulse 90 05/15/24 11:37 Resp 18 05/15/24 07:45 BP 163/85 H 05/15/24 11:37 Pulse Ox 98 05/15/24 11:37 O2 Del Method Room Air 05/15/24 07:45 BMI result Body Mass Index 33.1 Neuro: Other: She is alert and awake with normal spontaneity of speech fluency comprehension and affect. There is mild right-sided ptosis. There is no pronator drift. Tcrttt-co-ykhk testing is normal. Visual fletcher are full. Deep tendon reflexes are absent with flat plantars. Speech is normal. Results Labs 05/15/24 06:44 05/15/24 06:44 Labs: Short CBC 05/15/24 Range/Units 06:44 WBC 4.3 L (4.8-10.8) X10*3/uL Hgb 14.1 (12.0-16.0) g/dl Hct 42.1 (37.0-47.0) % Plt Count 149 L (160-400) X10*3/uL BMP 05/15/24 06:44 Sodium 142 Potassium 3.9 Chloride 112 H Carbon Dioxide 21 L BUN 25 H Creatinine 0.82 Calcium 9.2 Liver Function 05/15/24 Range/Units 06:44 Total Bilirubin 0.4 (0.0-1.0) mg/dL Direct Bilirubin 0.1 (0.0-0.5) mg/dL AST 20 (5-31) U/L ALT 15 (0-31) U/L Alkaline Phosphatase 66 (39-117) U/L Albumin 3.6 (3.5-5.0) g/dL Urine 05/15/24 Range/Units 07:47 Urine Color Yellow Urine Appearance Clear Urine pH 7.0 (5.0-9.0) Ur Specific [place] <= 1.005 (1.005-1.025) Urine Protein Negative (Neg-Trace) mg/dL Urine Glucose (UA) Negative (Negative) mg/dL noncontrast head CT revealed multiple bilateral posterior circulation ischemic infarctions. Assessment and Plan (1) Dizziness: Status: Acute 83 years old woman with previous history of multiple posterior circulation ischemic infarctions presented with nonspecific symptoms of dizziness unsteadiness but also reported chest pain. Exact etiology of all this is unclear at this time. She did not seem to have an infection. Because of significant stroke burden in the past, I would recommend obtaining a noncontrast MRI of brain to rule out ischemic infarction and also CTA of brain and neck to review her posterior circulation. In the meantime anti-platelet therapy should continue. Procedures Date of Service Date of Service: 05/15/24
[2024-05-15] MEDS: LORazepam 2 MG/ML VIAL 0.5 MG IVPUSH (12:30)
--- NOTE | 2024-05-15 12:34 | PC.NURSE ---
pt off unit to MRI at this time
--- NOTE | 2024-05-15 12:39 | PC.NURSE ---
pt ok to go to MRI off cardiac monitoring per Kassi DAMON.
--- NOTE | 2024-05-15 15:03 | MHC.EDTECH ---
this tech took over care at this time, rounded on pt and she had no request at this time
[2024-05-15] MEDS: iohexoL 350 MG/ML 100 ML INFUS..BTL IV (15:59)
[2024-05-15] MEDS: 0.9 % Sodium Chloride Flush 3 ML SYRINGE IVFLUSH (17:39)
[2024-05-15] MEDS: Warfarin Sodium 3 MG TABLET PO (20:11)
[2024-05-16] VITALS (11 sets, daily range): BP systolic 114–183; BP diastolic 58–94; PULSE 60–73; RESP 18; TEMP 36.1–37.1; O2SAT 96–97
--- NOTE | 2024-05-16 06:00 | PC.NURSE ---
Assumed care of patient at 03:15. Patient A&Ox4. Vitals stable. Denies pain or other complaints. 05:54 patient had run of SVT into 160's for approximately one minute before spontaneously converting back into NSR 70-80's. Unindentured Apprentice to room, patient assessed resting in bed with even and unlabored breathing without distress. Pt stated she had just returned from the bathroom. Pt denies chest pain, palpitations, dizziness, or other symptoms. Covering Dr. Long notified.
[2024-05-16 06:30] LABS: MANUAL DIFF FLAG NO
[2024-05-16 06:43] LABS: Basophils Absolute Auto 0.1 X10*3/uL (0.0-0.2); Basophils Percent Auto 1.2 % (0-2); Eosinophils Absolute Auto 0.2 X10*3/uL (0.0-0.4); Eosinophils Percent Auto 2.6 % (0-4); Hematocrit 44.1 % (37.0-47.0); Hemoglobin 14.4 g/dl (12.0-16.0); Imm Gran Abs Auto 0.03 X10*3/uL (0.00-0.03); Imm Gran Pct Auto 0.5 % (0.0-0.4); Lymphocytes Absolute Auto 2.4 X10*3/uL (1.2-4.9); Lymphocytes Percent Auto 40.7 % (20-40); Mean Corpuscular HGB Conc 32.7 g/dl (31.0-35.0); Mean Corpuscular Hemoglobin 29.9 pg (27.0-33.0); Mean Corpuscular Volume 91.7 fL (80.0-98.0); Mean Platelet Volume 11.6 fL (9.4-12.3); Monocytes Absolute Auto 0.5 X10*3/uL (0.1-1.2); Monocytes Percent Auto 8.6 % (2-11); Neutrophils Absolute Auto 2.7 x10*3/uL (2.0-8.3); Neutrophils Percent Auto 46.4 % (45-73); Platelet Count 176 X10*3/uL (160-400); Red Blood Count 4.81 X10*6/uL (4.20-5.50); Red Cell Distribution Width 14.6 % (11.0-16.0); White Blood Count 5.8 X10*3/uL (4.8-10.8)
[2024-05-16 06:44] LABS: INTERNATIONAL NORM RATIO 1.6 (0.9-1.1); Prothrombin Time 19.2 SEC (11.1-13.3)
[2024-05-16 07:08] LABS: Anion Gap 14 (12-20); Blood Urea Nitrogen 19 mg/dL (9-16); Calcium 9.1 mg/dL (8.4-10.2); Carbon Dioxide 22 mmol/L (22-29); Chloride 112 mmol/L (96-108); Creatinine Clr Calc Pharmacy 72.6; Estimated Glomerular Filt Rate > 60; Glucose Random 89 mg/dL (60-115); Potassium 4.1 mmol/L (3.3-5.1); Sodium 144 mmol/L (135-145)
[2024-05-16] MEDS: 0.9 % Sodium Chloride Flush 3 ML SYRINGE IVFLUSH ×4 (09:12→23:10)
[2024-05-16] MEDS: Cholecalciferol (Vitamin D3) 25 MCG TABLET PO (09:12)
[2024-05-16] MEDS: Aspirin Enteric Coated 81 MG TABLET.DR PO (09:12)
[2024-05-16] MEDS: Magnesium Oxide 400 MG TABLET PO (09:12)
[2024-05-16] MEDS: Multivitamin TABLET 1 TAB PO (09:12)
[2024-05-16] MEDS: Atorvastatin Calcium 80 MG TABLET PO (09:18)
[2024-05-16] MEDS: predniSONE 2.5 MG TABLET PO (09:29)
--- NOTE | 2024-05-16 10:39 | P.CONCA_ITS ---
History of Present Illness History of Present Illness Date of Service: 05/16/24 Requesting physician: Derrek Rose Consult reason: other (SVT, Dizziness) Chief complaint: Dizziness Narrative: I was consulted to see Ana Laura in cardiology consultation today. She has prior history of CVA in 2016 eventually diagnose with hypercoagulable state related to antiphospholipid antibody syndrome and started on warfarin therapy and since then has not had any new neurologic events. She has history of hypertension, active tissue disease, osteoarthritis. She came to the hospital as 2 days ago prior to the presentation she had symptoms of rapid heart rate. She said this is the 1st time she has had this symptoms over the last week or so she will feel rapid heart rate no associated symptoms and then she would start taking deep slow breath and the symptoms subside within few minutes. The day prior to coming the hospital the of the hospitalization she complains of having similar symptoms of fuzzy feeling in her head and lack of balance and thought she was having recurrent stroke and therefore came to the emergency room. In the emergency room initial workup for stroke has been negative shows old stroke changes but no new findings. No large vessel occlusion. She was admitted. Overnight on the monitor she has been noted to have rapid episodes of SVT up to 170-180 beats per minute. She had 1 prolonged episode while she was sleeping at 05:00 in the morning. She did not have any symptoms. However while I was interviewing her she had a symptom of palpitation nurse came in and she was having heart rate up to 180 beats per minute. The SVT then broke by itself. She denies any shortness of breath. Denies any chest pain. She has been taking all her medications. No syncopal episodes. Review of Systems 2 Constitutional: Constitutional: Reports no additional constitutional complaints Eyes: Eyes: Reports no additional eye complaints ENT: Reports dizziness and Reports disequilibrium Cardiovascular: Cardiovascular: Denies chest pain, Denies leg edema, Reports lightheadedness, Denies Loss of Consciousness, Reports palpitations and Denies dyspnea Respiratory: Respiratory: Reports no additional respiratory complaints and Denies dyspnea Gastrointestinal: Gastrointestinal: Reports no additional gastrointestinal complaints Musculoskeletal: Musculoskeletal: Reports no additional musculoskeletal complaints Integumentary/Breasts: Skin/Breast: Reports system reviewed and no additional complaints, except as docu Neurologic: Reports dizziness and Reports disequilibrium Endocrine: Endocrine: Reports palpitations PMFSH Past Medical History Medical History Adult general medical exam Screening for diabetes mellitus Stroke Rheumatoid arthritis Breast cancer HTN (hypertension) Family History Family History Father Stented coronary artery Stroke Mother Parkinson disease Surgical History Surgical History H/O spinal fusion History of bilateral knee replacement History of hip replacement H/O lumpectomy Social History Social History Household Members: None Housing: House Do you presently have visiting nurse or other home services: No Alcohol intake: never Patient Tobacco Use Status: Former Tobacco user Tobacco use type: Cigarette Years Smoked: quit in 1972 e-Cigarette/Vaping Use: Never Used Second Hand Smoke Exposure: No Substance Use Type: Marijuana Advance Directives Date on File: 10/29/22 service: No Current occupational status: disabled Cognitive needs: Yes Hearing needs: No Vision needs: Yes Meds Allergies Allergy/AdvReac Type Severity Reaction Status Date / Time cephalexin [CEPHALEXIN] Allergy Severe ANAPHYLAXIS Verified 05/15/24 06:35 morphine [MORPHINE] Allergy Intermediate RASHES AND Verified 05/15/24 06:35 HIVES, hives benzocaine Allergy Unknown Unknown Verified 05/15/24 06:35 clindamycin [CLINDAMYCIN] Allergy Unknown ANAPHYLAXIS Verified 05/15/24 06:35 gabapentin [GABAPENTIN] Allergy Unknown HIVES Verified 05/15/24 06:35 gluten [GLUTEN] Allergy Unknown NAUSEA & Verified 05/15/24 06:35 VOMITING oxycodone [OXYCODONE] Allergy Unknown RASH, hives Verified 05/15/24 06:35 povidone-iodine Allergy Unknown RASH Verified 05/15/24 06:35 [From BETADINE] soap [From BETADINE] Allergy Unknown UNKNOWN Verified 05/15/24 06:35 Clindamycin HCl Allergy Unknown anaphylaxis Uncoded 05/15/24 06:35 Gluten Allergy Unknown rashes,hive Uncoded 05/15/24 06:35 s,diarrhea Active Medications: Current Medications Acetaminophen (Acetaminophen 325 Mg Tablet) 650 mg PO Q6H PRN PRN Reason: Pain, Mild (Pain Scale 1-3), fever or headache Aspirin (Aspirin Enteric Coated 81 Mg Tablet.) 81 mg PO DAILY REPLACED BY [facility] Last Admin: 05/16/24 09:12 Dose: 81 mg Atorvastatin Calcium (Atorvastatin Calcium 80 Mg Tablet) 80 mg PO DAILY REPLACED BY [facility] Last Admin: 05/16/24 09:18 Dose: 80 mg Calcium Carbonate (Calcium Carbonate 750 Mg Tab.Chew) 750 mg PO Q4H PRN PRN Reason: Heartburn Docusate Sodium (Docusate Sodium 100 Mg/10 Ml Liquid) 50 mg PO DAILY PRN PRN Reason: Constipation Magnesium Hydroxide (Milk Of Magnesia 30 Ml Oral.Susp) 30 ml PO DAILY PRN PRN Reason: Constipation Magnesium Oxide (Magnesium Oxide 400 Mg Tablet) 400 mg PO DAILY REPLACED BY [facility] Last Admin: 05/16/24 09:12 Dose: 400 mg Melatonin (Melatonin 3 Mg Tablet) 6 mg PO BEDTIME PRN PRN Reason: Insomnia Multivitamins/Vitamin C (Multivitamin Tablet) 1 tab PO DAILY REPLACED BY [facility] Last Admin: 05/16/24 09:12 Dose: 1 tab Prednisone (Prednisone 2.5 Mg Tablet) 2.5 mg PO Q48H REPLACED BY [facility] Last Admin: 05/16/24 09:29 Dose: 2.5 mg Prednisone (Prednisone 5 Mg Tablet) 5 mg PO Q48H REPLACED BY [facility] Last Admin: 05/15/24 11:09 Dose: 5 mg Sodium Chloride (0.9 % Sodium Chloride Flush 3 Ml Syringe) 3 ml IVFLUSH QSHIFT REPLACED BY [facility] Last Admin: 05/16/24 09:12 Dose: 3 ml Vitamin D (Cholecalciferol (Vitamin D3) 25 Mcg Tablet) 25 mcg PO DAILY REPLACED BY [facility] Last Admin: 05/16/24 09:12 Dose: 25 mcg Warfarin Sodium (Warfarin Sodium 3 Mg Tablet) 3 mg PO DAILY@1800 REPLACED BY [facility] Last Admin: 05/15/24 20:11 Dose: 3 mg Warfarin Sodium (Warfarin Sodium 5 Mg Tablet) 5 mg PO ONCE ONE Stop: 05/16/24 18:01 Home Medications ?Medication ?Instructions ?Recorded ?Confirmed ?Last Taken ?Type cholecalciferol (vitamin D3) 25 25 mcg PO DAILY 09/05/20 05/15/24 05/14/24 History mcg (1,000 unit) capsule (Vitamin D3) magnesium oxide 250 mg PO DAILY 09/05/20 05/15/24 05/14/24 History cider [id number] 300 1 tab PO DAILY 03/23/23 05/15/24 05/14/24 History mg-8.3 mg tablet docusate sodium 50 mg capsule 50 mg PO DAILY PRN Constipation 03/23/23 05/15/24 05/14/24 History multivitamin 1 tab PO DAILY 03/23/23 05/15/24 05/14/24 History prednisone 2.5 mg tablet 2.5 mg PO Q48H 05/15/24 05/15/24 05/14/24 History prednisone 5 mg tablet 5 mg PO Q48H 05/15/24 05/15/24 05/14/24 History warfarin 3 mg tablet 1 tab PO BEDTIME 05/15/24 05/15/24 05/14/24 History Physical Exam 2 Vital Signs: Vital Signs: Last Vital Signs Temp 97.2 F 05/16/24 07:15 Pulse 67 05/16/24 07:15 Resp 18 05/16/24 07:15 BP 183/79 H 05/16/24 09:47 Pulse Ox 97 05/16/24 07:15 O2 Del Method Room Air 05/16/24 07:15 BMI result Body Mass Index 33.1 Const: General: cooperative, comfortable, no acute distress, alert and awake Nutritional Appearance: obese Orientation/consciousness: patient oriented x3 Limitations: ambulation with walker HEENT: Head: Yes normocephalic and Yes atraumatic Neck: Neck: Yes trachea midline, Yes supple and Yes no JVD Resp: Effort & Inspection: normal respiratory effort Auscultation: clear to auscultation bilaterally Cardio: Jugular venous distension: no JVD Palpation: normal PMI Rate: r egular rate Rhythm: regular rhythm Heart sounds: S1 normal heart sound present, S2 normal heart sound present, no click, no gallops and no murmurs GI: Auscultation: normal bowel sounds Skin: General skin exam: no rashes or lesions noted Neuro: General: patient oriented x3 and no focal motor deficits Extrem: General: Yes no clubbing, cyanosis or edema Objective Labs and Meds 05/16/24 06:00 05/16/24 06:00 Lab results: Laboratory Results - last 24 hr 05/15/24 05/16/24 06:44 06:00 WBC 5.8 RBC 4.81 Hgb 14.4 Hct 44.1 MCV 91.7 MCH 29.9 MCHC 32.7 RDW 14.6 Plt Count 176 MPV 11.6 Immature Gran % (Auto) 0.5 H Neut % (Auto) 46.4 Lymph % (Auto) 40.7 H [place] % (Auto) 8.6 Eos % (Auto) 2.6 Baso % (Auto) 1.2 Lymph # (Auto) 2.4 [place] # (Auto) 0.5 Eos # (Auto) 0.2 Baso # (Auto) 0.1 Abs Immat Gran (auto) 0.03 Absolute Neuts (auto) 2.7 Absolute Nucleated RBC 0.000 Nucleated RBC % (auto) 0.0 PT 19.2 H D INR 1.6 H Sodium 144 Potassium 4.1 Chloride 112 H Carbon Dioxide 22 Anion Gap 14 BUN 19 H Creatinine 0.71 Estim Creat Clear Calc 72.6 Estimated GFR > 60 Random Glucose 89 Calcium 9.1 Triglycerides 83 Cholesterol 160 LDL Cholesterol, Calc 91 HDL Cholesterol 53 Imaging Radiologist's impression: Impressions Brain MRI 05/15/24 13:10 IMPRESSION: There are chronic changes related to an old infarct within the vascular territory of the right posterior cerebral artery. There is also a small chronic left cerebellar infarct and scattered chronic small vessel ischemic changes within the periventricular white matter and meli. No evidence of acute territorial infarct or hemorrhage. Incidentally there is a small volume of fluid located within a pneumatized left petrous apex. Head/Neck CTA 05/15/24 15:58 IMPRESSION: There is a chronic cortical infarct involving the vascular territory the right posterior cerebral artery. Scattered chronic small vessel ischemic changes are also visualized within the periventricular white matter and cerebellum. There is a dome-shaped mass at the lateral aspect of the right anterior clinoid process that may represent a small meningioma measuring 0.9 cm in diameter. Otherwise no abnormal mass or enhancement visualized elsewhere within the intracranial compartment. There is 25% stenosis of the origin of left internal carotid artery. The left vertebral artery is occluded along its C3 segment and there is reconstitution of contrast filling the distal left vertebral artery that is likely secondary to cross filling via the basilar. The right carotid artery and right vertebral artery are widely patent. the distal P2 segment of the right posterior cerebral artery is occluded. Otherwise no intracranial large vessel occlusion. There is advanced multilevel degenerative spondylosis of the cervical spine with severe canal stenosis and likely compression of the cervical spinal cord at the level of C5-C6. At least moderate canal stenosis is visualized at multiple additional levels. A dedicated cervical spine MRI is recommended for better anatomic characterization of the cord and canal. Assessment and Plan (1) SVT (supraventricular tachycardia): Status: Acute Supraventricular tachycardia noted on monitoring and with symptoms associated with it. Says episodes when she did not have symptoms especially in the morning hours when she was sleeping. Her symptoms 2 days ago also most consistent with SVT. We discussed about pathophysiology of SVT. 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 We discussed about vagal maneuvers. Given symptomatic nature of SVT would start her on metoprolol 25 mg p.o. q.12 hours to suppress her arrhythmias. We discussed management in details. Avoidance of stimulants was discussed. (2) Dizziness: Status: Acute Symptoms of dizziness symptoms similar to what she says her prior CVA. Could be TIA although she has no new lesions on her current imaging. She is currently taking warfarin and is therapeutic INR. Question orthostatic/dysautonomia syndrome. Would suggest orthostatic vital signs. She is otherwise noted to be hypertensive. Will need to maintain adequate hydration. Orthostatic precautions were discussed. Check echocardiogram. Will follow up if need be. Thank you for allowing me to partake in the care Procedures Date of Service Date of Service: 05/16/24
--- NOTE | 2024-05-16 13:05 | MHC.CM.PN ---
Radha 05/16/24, Pt lives alone and has private [employer] [facility] and geriatric care managment services. She has used [facility] and [facility] in the past. PCP confirmed: Andreas Sapp, HCP is her friend Azul Negrete, copy requested. DCP is home, self care. Pt can arrange transport home at DC. CM to follow for DC needs.
--- NOTE | 2024-05-16 13:31 | P.PNIM_ITS ---
Subjective Subjective Date of Service: 05/16/24 Interval History: No acute events overnight. Still with burst of SVT with movement Review of Systems Denies chest pain Denies shortness of breath Denies nausea vomiting diarrhea Denies fever chills Physical Exam 2 Vital Signs: Vital Signs: Last Vital Signs Temp 98.3 F 05/16/24 11:19 Pulse 73 05/16/24 13:17 Resp 18 05/16/24 11:19 BP 114/58 L 05/16/24 13:17 Pulse Ox 97 05/16/24 13:17 O2 Del Method Room Air 05/16/24 11:19 BMI result Body Mass Index 33.1 Const: Other: Soft nontender nondistended normoactive bowel sounds Resp: Other: Clear to auscultation bilaterally no rales rhonchi or wheeze Cardio: Other: No S4; positive S1-S2; no S3 murmurs rubs or gallops Extrem: Other: No edema bilaterally Objective Data Active Medications Acetaminophen (Acetaminophen 325 Mg Tablet) 650 mg PO Q6H PRN PRN Reason: Pain, Mild (Pain Scale 1-3), fever or headache Aspirin (Aspirin Enteric Coated 81 Mg Tablet.) 81 mg PO DAILY [facility] Last Admin: 05/16/24 09:12 Dose: 81 mg Documented By: FELIX Atorvastatin Calcium (Atorvastatin Calcium 80 Mg Tablet) 80 mg PO DAILY [facility] Last Admin: 05/16/24 09:18 Dose: 80 mg Documented By: FELIX Calcium Carbonate (Calcium Carbonate 750 Mg Tab.Chew) 750 mg PO Q4H PRN PRN Reason: Heartburn Docusate Sodium (Docusate Sodium 100 Mg/10 Ml Liquid) 50 mg PO DAILY PRN PRN Reason: Constipation Magnesium Hydroxide (Milk Of Magnesia 30 Ml Oral.Susp) 30 ml PO DAILY PRN PRN Reason: Constipation Magnesium Oxide (Magnesium Oxide 400 Mg Tablet) 400 mg PO DAILY [facility] Last Admin: 05/16/24 09:12 Dose: 400 mg Documented By: FELIX Melatonin (Melatonin 3 Mg Tablet) 6 mg PO BEDTIME PRN PRN Reason: Insomnia Metoprolol Tartrate (Metoprolol Tartrate 25 Mg Tablet) 25 mg PO BID [facility]; Protocol Multivitamins/Vitamin C (Multivitamin Tablet) 1 tab PO DAILY [facility] Last Admin: 05/16/24 09:12 Dose: 1 tab Documented By: FELIX Prednisone (Prednisone 2.5 Mg Tablet) 2.5 mg PO Q48H [facility] Last Admin: 05/16/24 09:29 Dose: 2.5 mg Documented By: FELIX Prednisone (Prednisone 5 Mg Tablet) 5 mg PO Q48H [facility] Last Admin: 05/15/24 11:09 Dose: 5 mg Documented By: NOÉ Sodium Chloride (0.9 % Sodium Chloride Flush 3 Ml Syringe) 3 ml IVFLUSH QSHIFT [facility] Last Admin: 05/16/24 09:12 Dose: 3 ml Documented By: FELIX Vitamin D (Cholecalciferol (Vitamin D3) 25 Mcg Tablet) 25 mcg PO DAILY [facility] Last Admin: 05/16/24 09:12 Dose: 25 mcg Documented By: FELIX Warfarin Sodium (Warfarin Sodium 3 Mg Tablet) 3 mg PO DAILY@1800 [facility] Last Admin: 05/15/24 20:11 Dose: 3 mg Documented By: JOSH Warfarin Sodium (Warfarin Sodium 5 Mg Tablet) 5 mg PO ONCE ONE Stop: 05/16/24 18:01 Labs 05/16/24 06:00 05/16/24 06:00 Labs: Laboratory Results - last 24 hr 05/16/24 06:00 MCV 91.7 MCH 29.9 MCHC 32.7 RDW 14.6 Plt Count 176 MPV 11.6 Immature Gran % (Auto) 0.5 H Neut % (Auto) 46.4 Lymph % (Auto) 40.7 H [place] % (Auto) 8.6 Eos % (Auto) 2.6 Baso % (Auto) 1.2 Lymph # (Auto) 2.4 [place] # (Auto) 0.5 Eos # (Auto) 0.2 Baso # (Auto) 0.1 Abs Immat Gran (auto) 0.03 Absolute Neuts (auto) 2.7 Absolute Nucleated RBC 0.000 Nucleated RBC % (auto) 0.0 PT 19.2 H D INR 1.6 H Anion Gap 14 Estim Creat Clear Calc 72.6 Estimated GFR > 60 Random Glucose 89 Calcium 9.1 Assessment and Plan (1) SVT (supraventricular tachycardia): Status: Acute Plan 83 year old female with history of RA on chronic prednisone, htn, hx left sided breast cancer s/p radiation and lumpectomy, hx cva, antiphospholipid syndrome on coumadin to be observed for lightheadedness and generalized weakness 1. SVT -continue telemetry -metoprolol 25 mg p.o. b.i.d.. .. Encourage ambulation -adjust as indicated 2.Antiphospholipid syndrome -continue coumadin, inr therapeutic, monitor daily 3.RA -continue prednisone, no acute flare Coumadin Full code Requires ongoing hospitalization for beta-krystal initiation and monitoring during initial phase Quality Stroke Does the patient have a stroke diagnosis?: No VTE Prior VTE?: No VTE Risk Level:: Medical - moderate - high VTE Device Contraindication: Treatment Not Indicated VTE Drug Contraindication: N/A - Med Ordered
[2024-05-16] MEDS: Metoprolol Tartrate 25 MG TABLET PO ×2 (14:24→21:20)
[2024-05-16] MEDS: Warfarin Sodium 5 MG TABLET PO (18:02)
[2024-05-17] VITALS: BP 134/60; PULSE 50; RESP 18; TEMP 36.6; O2SAT 97
[2024-05-17 04:00] VITALS: BP 136/61; PULSE 63; RESP 18; TEMP 36.6; O2SAT 95
[2024-05-17 08:00] VITALS: BP 138/65; PULSE 73; RESP 18; TEMP 37; O2SAT 96
[2024-05-17 08:19] LABS: INTERNATIONAL NORM RATIO 1.8 (0.9-1.1); Prothrombin Time 21.8 SEC (11.1-13.3)
[2024-05-17] MEDS: Atorvastatin Calcium 80 MG TABLET PO (09:35)
[2024-05-17] MEDS: Multivitamin TABLET 1 TAB PO (09:35)
[2024-05-17] MEDS: Magnesium Oxide 400 MG TABLET PO (09:35)
[2024-05-17] MEDS: Cholecalciferol (Vitamin D3) 25 MCG TABLET PO (09:35)
[2024-05-17] MEDS: Aspirin Enteric Coated 81 MG TABLET.DR PO (09:35)
[2024-05-17] MEDS: 0.9 % Sodium Chloride Flush 3 ML SYRINGE IVFLUSH ×2 (09:36→17:55)
[2024-05-17] MEDS: Metoprolol Tartrate 25 MG TABLET PO ×2 (09:38→20:48)
--- NOTE | 2024-05-17 10:47 | MHC.CM.PN ---
IMM 05/17/24, pt status changed to inpt.
[2024-05-17 12:00] VITALS: BP 132/63; PULSE 57; RESP 18; TEMP 36.8; O2SAT 99
--- NOTE | 2024-05-17 12:04 | PM.PNCARD ---
Subjective Subjective Date of Service: 05/17/24 Principal diagnosis: SVT Interval history: No further episodes of SVT. Blood pressure is stable. Palpitations have improved. She still had episode of dizziness when she was walking. Subsequently suspected to have cervical spine compression, scheduled for MRI. Review of Systems Constitutional: Reports no additional constitutional complaints Reports dizziness Cardiovascular: Reports no additional cardiovascular complaints Respiratory: Reports no additional respiratory complaints Reports dizziness Physical Exam Vital Signs: Last Vital Signs Temp 98.6 F 05/17/24 08:00 Pulse 73 05/17/24 08:00 Resp 18 05/17/24 08:00 BP 138/65 05/17/24 08:00 Pulse Ox 96 05/17/24 08:00 O2 Del Method Room Air 05/17/24 08:00 BMI result Body Mass Index 33.1 Const General: cooperative, comfortable, no acute distress, alert and awake Nutritional Appearance: obese Orientation/consciousness: patient oriented x3 Limitations: ambulation with walker HEENT Head: Yes normocephalic and Yes atraumatic Neck Neck: Yes trachea midline, Yes supple and Yes no JVD Resp Effort & Inspection: normal respiratory effort Auscultation: clear to auscultation bilaterally Cardio Jugular venous distension: no JVD Palpation: normal PMI Rate: regular rate Rhythm: regular rhythm Heart sounds: S1 normal heart sound present, S2 normal heart sound present, no click, no gallops and no murmurs GI Auscultation: normal bowel sounds Skin General skin exam: no rashes or lesions noted Neuro General: patient oriented x3 and no focal motor deficits Extrem General: Yes no clubbing, cyanosis or edema Objective Labs and Meds 05/16/24 06:00 05/16/24 06:00 Lab results: Laboratory Results - last 24 hr 05/17/24 07:23 PT 21.8 H INR 1.8 H Progress Note: A&P Assessment and plan (1) SVT (supraventricular tachycardia): Status: Acute Assessment and Plan: Supraventricular tachycardia now suppressed on metoprolol therapy with much improved symptoms. Continue metoprolol therapy and can switch to Toprol-XL 50 mg daily. Avoidance of stimulants discussed. Vagal maneuvers were discussed. Will set up for outpatient follow-up. Time Spent With Patient Time: Total time managing care of this patient today ____ minutes. Progress Note: Quality Stroke Does the patient have a stroke diagnosis?: No Procedures Date of Service Date of Service: 05/17/24
[2024-05-17] MEDS: predniSONE 5 MG TABLET PO (14:06)
[2024-05-17 16:00] VITALS: BP 145/66; PULSE 62; RESP 18; TEMP 36.2; O2SAT 98
--- NOTE | 2024-05-17 16:23 | P.PNIM_ITS ---
Subjective Subjective Date of Service: 05/17/24 Interval History: Seen and examined this morning Follow-up for SVT No overnight events on monitor Patient feeling better denies any chest pain, palpitations, dizziness Imaging did show moderate canal stenosis, neural recommends MRI of cervical spine to rule out cord compression. denies weakness, numbness, tingling (although does report a history of bilateral carpal tunnel) Review of Systems Review of Systems: Yes all other systems are reviewed and are negative Constitutional Constitutional: Denies chills and Denies fever(s) Gastrointestinal Gastrointestinal: Denies abdominal pain Physical Exam 2 Vital Signs: Vital Signs: Last Vital Signs Temp 97.2 F 05/17/24 16:00 Pulse 62 05/17/24 16:00 Resp 18 05/17/24 16:00 BP 145/66 H 05/17/24 16:00 Pulse Ox 98 05/17/24 16:00 O2 Del Method Room Air 05/17/24 16:00 BMI result Body Mass Index 33.1 Const: General: cooperative, comfortable, no acute distress, alert and awake Nutritional Appearance: average body habitus Orientation/consciousness: p atient oriented x3 Resp: Effort & Inspection: normal respiratory effort, able to speak in complete sentences, no respiratory distress and no use of accessory muscles A uscultation: clear to auscultation bilaterally Cardio: Rate: regular rate GI: Inspection: No distended Palpation (GI): Soft to palpation and nontender Neuro: General: patient oriented x3, moves all extremities and CN's II-XI intact bilaterally Extrem: General: Yes no pedal edema Objective Data Active Medications Acetaminophen (Acetaminophen 325 Mg Tablet) 650 mg PO Q6H PRN PRN Reason: Pain, Mild (Pain Scale 1-3), fever or headache Aspirin (Aspirin Enteric Coated 81 Mg Tablet.) 81 mg PO DAILY [facility] Last Admin: 05/17/24 09:35 Dose: 81 mg Documented By: RENA Atorvastatin Calcium (Atorvastatin Calcium 80 Mg Tablet) 80 mg PO DAILY [facility] Last Admin: 05/17/24 09:35 Dose: 80 mg Documented By: RENA Calcium Carbonate (Calcium Carbonate 750 Mg Tab.Chew) 750 mg PO Q4H PRN PRN Reason: Heartburn Docusate Sodium (Docusate Sodium 100 Mg/10 Ml Liquid) 50 mg PO DAILY PRN PRN Reason: Constipation Magnesium Hydroxide (Milk Of Magnesia 30 Ml Oral.Susp) 30 ml PO DAILY PRN PRN Reason: Constipation Magnesium Oxide (Magnesium Oxide 400 Mg Tablet) 400 mg PO DAILY [facility] Last Admin: 05/17/24 09:35 Dose: 400 mg Documented By: RENA Melatonin (Melatonin 3 Mg Tablet) 6 mg PO BEDTIME PRN PRN Reason: Insomnia Metoprolol Tartrate (Metoprolol Tartrate 25 Mg Tablet) 25 mg PO BID [facility]; Protocol Last Admin: 05/17/24 09:38 Dose: 25 mg Documented By: RENA Multivitamins/Vitamin C (Multivitamin Tablet) 1 tab PO DAILY [facility] Last Admin: 05/17/24 09:35 Dose: 1 tab Documented By: RENA Prednisone (Prednisone 2.5 Mg Tablet) 2.5 mg PO Q48H [facility] Last Admin: 05/16/24 09:29 Dose: 2.5 mg Documented By: JEREMIAHORRSouth Prednisone (Prednisone 5 Mg Tablet) 5 mg PO Q48H [facility] Last Admin: 05/17/24 14:06 Dose: 5 mg Documented By: RENA Sodium Chloride (0.9 % Sodium Chloride Flush 3 Ml Syringe) 3 ml IVFLUSH QSHIFT [facility] Last Admin: 05/17/24 09:36 Dose: 3 ml Documented By: RENA Vitamin D (Cholecalciferol (Vitamin D3) 25 Mcg Tablet) 25 mcg PO DAILY [facility] Last Admin: 05/17/24 09:35 Dose: 25 mcg Documented By: RENA Warfarin Sodium (Warfarin Sodium 3 Mg Tablet) 3 mg PO DAILY@1800 [facility] Last Admin: 05/15/24 20:11 Dose: 3 mg Documented By: GEEUMOC Labs 05/16/24 06:00 05/16/24 06:00 Labs: Laboratory Results - last 24 hr 05/17/24 07:23 PT 21.8 H INR 1.8 H Assessment and Plan (1) SVT (supraventricular tachycardia): Status: Acute Plan 83 year old female with history of RA on chronic prednisone, htn, hx left sided breast cancer s/p radiation and lumpectomy, hx cva, antiphospholipid syndrome on coumadin to be observed for lightheadedness and generalized weakness SVT No further events since starting metoprolol metoprolol 25 mg p.o. b.i.d dizziness had lightheadedness that resolved on admission Brain MRI and CTA of head and neck were initially ordered MRI with chronic changes related to old infarct. CTA head/neck - possible small meningioma, 25% stenosis of left internal carotid, distal P2 segment of right posterior cerebral artery is occluded, otherwise no intracranial large vessel occlusion Seen by Neurology, recommended to continue antiplatelet agent, also on high-dose statin Severe canal stenosis and likely compression of the cervical spinal cord is seen at level C5-C6 seen by neuro MRI of cervical spine ordered, pending Antiphospholipid syndrome INR 1.8 continue coumadin, received 5 mg yesterday, resume home dose and follow INR RA -continue prednisone, no acute flare DVT ppx - Coumadin Full code Requires ongoing hospitalization for beta-krystal initiation and monitoring during initial phase Quality Stroke Does the patient have a stroke diagnosis?: No VTE Prior VTE?: No VTE Risk Level:: Medical - moderate - high VTE Device Contraindication: Treatment Not Indicated VTE Drug Contraindication: N/A - Med Ordered
[2024-05-17] MEDS: LORazepam 2 MG/ML VIAL 0.5 MG IVPUSH (17:51)
[2024-05-17] MEDS: Warfarin Sodium 3 MG TABLET PO (17:53)
[2024-05-17 20:00] VITALS: BP 125/61; PULSE 71; RESP 16; TEMP 36.8; O2SAT 97
[2024-05-18] VITALS: BP 132/53; PULSE 53; RESP 18; TEMP 36.3; O2SAT 100
[2024-05-18] MEDS: 0.9 % Sodium Chloride Flush 3 ML SYRINGE IVFLUSH ×2 (00:39→11:25)
[2024-05-18 04:00] VITALS: BP 155/74; PULSE 62; RESP 18; TEMP 36.4; O2SAT 97
[2024-05-18 06:38] LABS: INTERNATIONAL NORM RATIO 1.8 (0.9-1.1); Prothrombin Time 21.7 SEC (11.1-13.3)
[2024-05-18 08:00] VITALS: BP 113/60; PULSE 63; RESP 12; TEMP 36.2; O2SAT 96
--- NOTE | 2024-05-18 10:37 | P.DS_ITS ---
DS: Providers Provider Date of Service: 05/18/24 Date of admission: 05/17/24 09:30 Date of discharge: 05/18/24 Primary care physician: Frederick Sapp PA-C Consults: 05/15/24 10:54 Consult to Neurology Routine Consulting Provider: [facility] Reason for consultation: weakness, dizziness 05/15/24 15:59 Consult to Cardiology Routine Consulting Provider: [facility] Reason for consultation: lightheadedness, runs of sinus tachycardia 180s Attending physician on discharge: Star Uribe Discharging clinician: Malgorzata Lorenzo DS: Diagnosis Discharge Diagnosis (1) SVT (supraventricular tachycardia): Status: Acute DS: Summary Hospital Course Hospital Course: From H&P on the day of admission 83 year old female with history of RA on chronic prednisone, htn, hx left sided breast cancer s/p radiation and lumpectomy, hx cva, antiphospholipid syndrome on coumadin presented to the ED for evaluation of lightheadedness, palpitations, chest discomfort, and generalized weakness feeling like her knees were going to buckle starting tuesday and resolving yesterday. She also states she felt fuzzy cognitively. Has a history of posterior stroke and was concerned of recurrence so called EMS today. Last known well time tuesday morning. She reports the dizziness as a feeling of lightheadedness/like she was going to pass out and needed to sit down, denies vertigo. No facial droop, slurred speech, unilateral weakness/paresthesias. She is currently asymptomatic. Vitals stable, sheeba hypertensive 163/85. Hematology studies unremarkable. Renal fx normal, lytes normal except cl 112. glucose 136. Trop 3.7. UA unremarkable. Head ct negative for acute intracranial abnormality, but shows sequela of prior ischemic changes and global volume loss. CXR unremarkable. In the ED, given IVF and 324mg asa. ED discussed case with neurology recommending pt being admitted for stroke rule out SVT No further events since starting metoprolol metoprolol 25 mg p.o. b.i.d dizziness had lightheadedness that resolved on admission Brain MRI and CTA of head and neck were initially ordered MRI with chronic changes related to old infarct. CTA head/neck - possible small meningioma, 25% stenosis of left internal carotid, distal P2 segment of right posterior cerebral artery is occluded, otherwise no intracranial large vessel occlusion Seen by Neurology, recommended to continue antiplatelet agent no stroke or TIA likely symptoms related to above SVT Severe canal stenosis and likely compression of the cervical spinal cord is seen at level C5-C6 Incidentally found on CTA. Seen by neurology who recommended dedicated cervical spine MRI which did not reveal any cord compression. Recommend outpatient follow-up for chronic degenerative changes with Neurosurgery. Antiphospholipid syndrome INR 1.8 continue coumadin, received 5 mg yesterday, recommend 5 mg of coumadin today and tomorrow and then resume previous home dose of 3 mg. Repeat INR on Tuesday, patient has machine at home which she uses to check her INR. Time Attestation Discharge Coordination Time (in mins): 36 Quality: Safe Use of Opioids Does Pt have an Active Cancer Diagnosis on the Problem List?: No Quality: Stroke Does the patient have a stroke diagnosis?: No Physical Exam Vital Signs: Vital Signs: Last Vital Signs Temp 97.2 F 05/18/24 08:00 Pulse 63 05/18/24 08:00 Resp 12 05/18/24 08:00 BP 113/60 05/18/24 08:00 Pulse Ox 96 05/18/24 08:00 O2 Del Method Room Air 05/18/24 08:00 BMI result Body Mass Index 33.1 Const: General: cooperative, comfortable, no acute distress, alert and awake Nutritional Appearance: average body habitus Orientation/consciousness: patient oriented x3 Resp: Effort & Inspection: normal respiratory effort, able to speak in complete sentences, no respiratory distress and no use of accessory muscles Auscultation: clear to auscultation bilaterally Cardio: Rate: regular rate GI: Inspection: No distended Palpation (GI): Soft to palpation and nontender Neuro: General: patient oriented x3, moves all extremities and CN's II-XI intact bilaterally Extrem: General: Yes no pedal edema DS: Data Data Completed and Pending Labs on day of discharge: Laboratory Results - last 24 hr 05/18/24 06:00 Hold Purple Top SEE NOTE PT 21.7 H INR 1.8 H Discharge Plan Discharge Anticipated Discharge Date/Time: 05/18/24 11:20 Patient Disposition: Home, Self-Care Discharge Diagnosis: SVT chronic degenerative changes in cervical spine Referrals: Vargas Brian PA [Physician Family Service Counselor] - 1 Week Frederick Sapp PA-C [Primary Care Provider] - 1 Week Chalino Reynaga MD [Physician] - 1 Week Discharge Medications: New metoprolol tartrate 25 mg Tablet 25 mg PO BID 90 Days Qty: 180 0RF Protocol: Hold for SBP/HR < HOLD for SBP < : 90 HOLD for HR < : 60 aspirin 81 mg Tablet,Delayed Release (Dr/Ec) 81 mg PO DAILY 90 Days Qty: 90 0RF Continued magnesium oxide 250 mg magnesium Tablet 250 mg PO DAILY cholecalciferol (vitamin D3) [Vitamin D3] 25 mcg (1,000 unit) Capsule 25 mcg PO DAILY docusate sodium 50 mg capsule 50 mg PO DAILY PRN (Reason: Constipation) prednisone 5 mg tablet 5 mg PO Q48H Rx Instructions: alternating with 2.5mg dose. 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 Take as prescribed Call to schedule follow-up appointment with Cardiology For chronic degenerative changes of your cervical spine, follow-up outpatient with Neurosurgery. Your INR is 1.8, take 5 mg of coumadin today and tomorrow and then recheck INR on Tuesday on your home machine. Assessment: See discharge summary
[2024-05-18 11:03] VITALS: BP 113/60; PULSE 63; O2SAT 96
[2024-05-18] MEDS: Magnesium Oxide 400 MG TABLET PO (11:15)
[2024-05-18 11:16] VITALS: BP 138/59; PULSE 62
[2024-05-18] MEDS: Cholecalciferol (Vitamin D3) 25 MCG TABLET PO (11:16)
[2024-05-18] MEDS: predniSONE 2.5 MG TABLET PO (11:16)
[2024-05-18] MEDS: Metoprolol Tartrate 25 MG TABLET PO (11:16)
[2024-05-18] MEDS: Aspirin Enteric Coated 81 MG TABLET.DR PO (11:16)
[2024-05-18] MEDS: Multivitamin TABLET 1 TAB PO (11:16)
[2024-05-18] MEDS: Atorvastatin Calcium 80 MG TABLET PO (11:16)
--- NOTE | 2024-05-18 11:35 | MHC.CM.PN ---
Pt has been medically cleared for DC, she will go home via private transport, and resume her private home care services.
[2024-05-18 12:00] VITALS: BP 146/57; PULSE 61; RESP 16; TEMP 35.9; O2SAT 99
--- NOTE | 2024-05-18 14:42 | PC.NURSE ---
pt discharged with 2 friends with all belongings. She denied and further questions, complaints or concerns at the time she signed the d/c packet.
== END 2024-05-18 14:44 | disposition home or self-care (01) | DRG 309 ==
LOC: HO.ED 08:07 → HO.EDOVER 11:00 → HO.IMC 17:03
PROVIDERS: Admitting Provider Physician Assistant; Emergency Provider Student in an Organized Health Care Education/Training Program; PCP Physician Assistant; Visit Provider Physician Assistant Medical
DX: I47.10 Supraventricular tachycardia, unspecified (principal); D68.61 Antiphospholipid syndrome; M48.02 Spinal stenosis, cervical region; M06.9 Rheumatoid arthritis, unspecified; Z85.3 Personal history of malignant neoplasm of breast; Z92.3 Personal history of irradiation; Z87.891 Personal history of nicotine dependence; Z79.01 Long term (current) use of anticoagulants; Z79.52 Long term (current) use of systemic steroids; Z79.899 Other long term (current) drug therapy
CPT/HCPCS: 36415; 70450; 70496; 70498; 70551; 71046; 72141; 80048; 80053; 80061; 81003; 82248; 83690; 84484; 85025; 85610; 93005; 97116; 97161; 97166; 97530; 97535; 99222; 99285; J2060; Q9967

== ENCOUNTER → 2024-05-15 06:28 | Outpatient (BNV) | payer MEDICARE, SELFPAY | PROVIDERS: Emergency Provider Student in an Organized Health Care Education/Training Program; PCP Physician Assistant; Visit Provider Internal Medicine Cardiovascular Disease | DX: R07.89 Other chest pain (principal); I49.1 Atrial premature depolarization | CPT/HCPCS: 93010 ==

== ENCOUNTER → 2024-05-15 10:50 | Outpatient (BNV) | payer MEDICARE, SELFPAY | PROVIDERS: Admitting Provider Physician Assistant; Emergency Provider Student in an Organized Health Care Education/Training Program; PCP Physician Assistant; Visit Provider Physician Assistant | DX: I47.10 Supraventricular tachycardia, unspecified (principal) | CPT/HCPCS: 99222; 99232; 99239 ==

== ENCOUNTER → 2024-05-15 10:50 | Outpatient (BNV) | payer MEDICARE, SELFPAY | PROVIDERS: Admitting Provider Physician Assistant; Emergency Provider Student in an Organized Health Care Education/Training Program; PCP Physician Assistant; Visit Provider Internal Medicine Cardiovascular Disease | DX: I47.10 Supraventricular tachycardia, unspecified (principal) | CPT/HCPCS: 99222; 99233 ==

== ENCOUNTER → 2024-05-15 10:50 | Outpatient (BNV) | payer MEDICARE, SELFPAY | PROVIDERS: Admitting Provider Physician Assistant; Emergency Provider Student in an Organized Health Care Education/Training Program; PCP Physician Assistant; Visit Provider Psychiatry & Neurology Neurology | DX: R42 Dizziness and giddiness (principal); Z86.73 Personal history of transient ischemic attack (TIA), and cerebral infarction without residual deficits | CPT/HCPCS: 99222 ==

== ENCOUNTER → 2024-05-24 12:29 | Outpatient (REF) | payer MEDICARE, SELFPAY ==
--- NOTE | 2024-05-24 12:31 | HM_ITS ---
Conclusion: 1. Patient was monitored for total period of 13 days 2. Baseline was normal sinus rhythm with average heart of 68 beats per minute 3. No significant pauses noted 4. Frequent mostly isolated PACs and PVCs noted with total burden of 2.2% and 1.9% respectively 5. Patient marked 2 events with symptoms of dizziness correlating with PAC and PVC MTDD
== END ==
LOC: HO.CARD 12:29
PROVIDERS: PCP Physician Assistant; Visit Provider Internal Medicine Cardiovascular Disease
DX: I47.10 Supraventricular tachycardia, unspecified (principal); R42 Dizziness and giddiness
CPT/HCPCS: 93246

== ENCOUNTER → 2024-05-24 12:31 | Outpatient (BNV) | payer MEDICARE, SELFPAY | PROVIDERS: PCP Physician Assistant; Visit Provider Internal Medicine Cardiovascular Disease | DX: I49.1 Atrial premature depolarization (principal); I49.3 Ventricular premature depolarization | CPT/HCPCS: 93248 ==

== ENCOUNTER 2024-06-04 09:53 | Outpatient (AMB) | payer MEDICARE, SELFPAY ==
--- NOTE | 2024-06-04 09:55 | A.SPINEOV_ITS ---
Intake Visit Reasons: cervical stenosis/hand numbness Intake Note: Ms. Lee is here today to F/u after being seen at the Hospital. Bond Underwriter Required: No Allergies cephalexin [CEPHALEXIN] Allergy (Severe, Verified 06/04/24 10:13) ANAPHYLAXIS morphine [MORPHINE] Allergy (Intermediate, Verified 06/04/24 10:13) RASHES AND HIVES, hives benzocaine Allergy (Unknown, Verified 06/04/24 10:13) Unknown clindamycin [CLINDAMYCIN] Allergy (Unknown, Verified 06/04/24 10:13) ANAPHYLAXIS gabapentin [GABAPENTIN] Allergy (Unknown, Verified 06/04/24 10:13) HIVES gluten [GLUTEN] Allergy (Unknown, Verified 06/04/24 10:13) NAUSEA & VOMITING oxycodone [OXYCODONE] Allergy (Unknown, Verified 06/04/24 10:13) RASH, hives povidone-iodine [From BETADINE] Allergy (Unknown, Verified 06/04/24 10:13) RASH soap [From BETADINE] Allergy (Unknown, Verified 06/04/24 10:13) UNKNOWN Clindamycin HCl Allergy (Unknown, Uncoded 05/15/24 06:35) anaphylaxis Gluten Allergy (Unknown, Uncoded 05/15/24 06:35) rashes,hives,diarrhea Assessment & Plan Assessment & Plan (1) Myelomalacia: Code(s): G95.89 - Other specified diseases of spinal cord Category: Medical Plan Dear colleague, Thank you for referring Ana Laura to our office today. She is a pleasant 84-year-old female comes in today as a follow-up referral after a recent hospital admission. She presented to our emergency department after experiencing dizziness/lightheadedness on 05/15/24. She has a history of two posterior strokes in 2016. She states she has had to use a walker since her strokes as she lost her ability to control her balance. In our emergency department she was found to have SVT and was started on metoprolol twice daily. There was an incidental finding of severe cervical stenosis on MRI imaging. Thus, she was referred to our service for evaluation. She denies any neck pain, numbness/tingling in her upper extremities aside from her left hand (diagnosed with carpal tunnel syndrome on EMG), and reports no shooting pains in her upper extremities. She has no new balance issues, and reports no difficulty with u rination/bowel movements. PMH: Rheumatoid arthritis, htn, hx left sided breast cancer s/p radiation and lumpectomy, hx cva, Osteopenia, SVT, antiphospholipid syndrome, autoimmune hepatitis. Left-sided carpal tunnel syndrome called to cancel her carpal tunnel release with orthopedics, reports she does not want any more surgeries for the remainder of her life. Social hx: The patient does not smoke, reports no substance use. Medications: Aspirin, vitamin D3, docusate, magnesium, metoprolol, multivitamin, prednisone, warfarin. Allergies: Cephalexin, morphine, benzocaine, clindamycin, gabapentin, gluten, oxycodone, Betadine. Physical exam: The patient has 4/5 strength with bilateral hand hybrid derivatives trader, 5/5 strength elsewhere. She ambulates with the assistance of a walker, and rises from a seated position with the assistance. She reports some numbness/tingling in her left hand, which she attributes to her diagnosis of carpal tunnel syndrome on the left. The rest of her sensation is intact. Her reflexes are 3+ hyperactive diffusely. (-) Santos's, (-) clonus. Imaging review: MRI of the cervical spine completed here at [facility] shows severe spondylosis of the cervical spine. There is what appears to be auto fusion between C4-5. There is severe central canal stenosis and bilateral foraminal stenosis at C3-4, C5-6, and C6-7. There also appears to be a slight listhesis at C7-T1. There does appear to be some slight evidence of myelomalacia at C3-4. Radiology also reports this at C5-C6, however I find this harder to ascertain on imaging. Impression: Ana Laura is a pleasant 84-year-old female comes in today as a follow-up after being referred to our service by the emergency department. She reports that she has no pain, and is not sure why she is being evaluated by Neurosurgery. I reviewed her MRI imaging with her, and explained to her that she does have several areas of severe stenosis, a slight listhesis, and evidence of myelomalacia. I thoroughly explained to her the severity of these findings. She denied any want/need for surgery at this time. I informed her that I would be discussing her imaging with the attending neurosurgeon Dr. Ledezma, and would call her back if he adamantly recommends surgery. She understands and agrees to this. Thank you for allowing us to care for your patient. The total time spent with this visit with this patient was 45 minutes reviewing history, physical exam, MRI imaging review, and implementation of treatment plan or further diagnostic testing. Edu Ledezma MD,PhD [facility] Coding Level of Care Code New Pt Level 4 (98813) Diagnoses Myelomalacia G95.89
== END 2024-06-04 11:07 | disposition home or self-care (01) ==
PROVIDERS: PCP Physician Assistant; Visit Provider Physician Assistant
DX: G95.89 Other specified diseases of spinal cord (principal)
CPT/HCPCS: 99204

== ENCOUNTER → 2024-06-04 09:53 | Outpatient (BNVA) | payer MEDICARE, SELFPAY | PROVIDERS: PCP Physician Assistant; Visit Provider Physician Assistant | DX: G95.89 Other specified diseases of spinal cord (principal) | CPT/HCPCS: 99202 ==

== ENCOUNTER 2024-06-05 12:34 | Outpatient (AMB) | payer MEDICARE, SELFPAY ==
--- NOTE | 2024-06-05 12:55 | A.OFFPC_ITS ---
Vital Signs 06/05/24 12:56 Height 5 ft 7 in Weight 204 lb BMI 31.9 BP 120/72 Blood Pressure Location Lt brachial Position Sitting Pulse 80 Pulse Source Pulse Oximeter Pulse Oximetry (%) 98 Oxygen Delivery Method Room Air Intake Visit Reasons: HDF Alcohol Rubber Required: No Accompanied by: MENTAL HEALTH PROGRAM DIRECTOR Allergies cephalexin [CEPHALEXIN] Allergy (Severe, Verified 06/05/24 13:03) ANAPHYLAXIS morphine [MORPHINE] Allergy (Intermediate, Verified 06/05/24 13:03) RASHES AND HIVES, hives benzocaine Allergy (Unknown, Verified 06/05/24 13:03) Unknown clindamycin [CLINDAMYCIN] Allergy (Unknown, Verified 06/05/24 13:03) ANAPHYLAXIS gabapentin [GABAPENTIN] Allergy (Unknown, Verified 06/05/24 13:03) HIVES gluten [GLUTEN] Allergy (Unknown, Verified 06/05/24 13:03) NAUSEA & VOMITING oxycodone [OXYCODONE] Allergy (Unknown, Verified 06/05/24 13:03) RASH, hives povidone-iodine [From BETADINE] Allergy (Unknown, Verified 06/05/24 13:03) RASH soap [From BETADINE] Allergy (Unknown, Verified 06/05/24 13:03) UNKNOWN Clindamycin HCl Allergy (Unknown, Uncoded 06/05/24 13:03) anaphylaxis Gluten Allergy (Unknown, Uncoded 06/05/24 13:03) rashes,hives,diarrhea Medication List - Last Reconciled 06/05/24 by Frederick Sapp PA-C aspirin 81 mg PO DAILY 90 days cholecalciferol (vitamin D3) (Vitamin D3) 25 mcg PO DAILY cider [id number] 300-8.3 mg 1 tab PO DAILY docusate sodium 50 mg PO DAILY PRN magnesium oxide 250 mg PO DAILY metoprolol tartrate 25 mg See Protocol PO BID 90 days multivitamin 1 tab PO DAILY prednisone 2.5 mg PO Q48H prednisone 5 mg PO Q48H prothrombin time test strips (Coaguchek XS strips) As directed warfarin 1 tab PO BEDTIME warfarin 1 mg PO DAILY Tobacco use date assessed: 06/05/24 Fall risk assessment: No Falls in past year Last assessed Fall Risk: 06/05/24 Dental Screening Dental Screen Date: 06/05/24 Did you have a dental visit in the last 12 months?: Yes Did you have a dental problem in the last 6 months where you did not have access to dental care?: No Was dental information given to patient?: Patient has dentist HPI HDF HPI Details Ana Laura is a 84-year-old female here today for for hospital discharge follow-up. Patient has a past medical history significant for hypertension, h/o Breast cancer, [place] CVA, antiphospholipid syndome, autoimmune hepatitis, depression. Patient was admitted to [facility] for acute dizziness, cognitive delay and generalized fatigue. She underwent brain MRI and CTA of head and neck that did not show any acute findings though did show chronic changes related to an old infarct. Also her CTA neck did show a small meningioma and a 25% stenosis of the left internal carotid. Neurology was consulted and recommended to continue on antiplatelet therapy. She was also found to have elevated heart rates and was started on metoprolol 25 mg b.i.d.. While at home blood pressures and heart rates have been on the lower side and she has been somewhat symptomatic thus have reduced her metoprolol dose. Currently patient feels well on metoprolol 12.5 b.i.d.. She has upcoming appointment with Cardiology on June 25. Currently has a Holter monitor on. As far as her cervical spine stenosis she has followed up with neurosurgeon and no surgery offered at this time. Patient is not interested in any surgery as her symptoms are not severe. 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 [facility] Medical History Adult general medical exam Screening for diabetes mellitus Stroke Rheumatoid arthritis Breast cancer HTN (hypertension) Surgical History H/O spinal fusion History of bilateral knee replacement History of hip replacement H/O lumpectomy Family History Father Stented coronary artery Stroke Mother Parkinson disease Social History Household Members: None Housing: House Do you presently have visiting nurse or other home services: No Alcohol intake: never Patient Tobacco Use Status: Former Tobacco user Tobacco use type: Cigarette Years Smoked: quit in 1972 e-Cigarette/Vaping Use: Never Used Second Hand Smoke Exposure: No Substance Use Type: Marijuana Advance Directives Date on File: 10/29/22 service: No Current occupational status: disabled Cognitive needs: Yes Hearing needs: No Vision needs: Yes Questionnaire PHQ-9 Over the last 2 weeks, how often have you been bothered by any of the following problems? 1. Little interest or pleasure in doing things: not at all 2. Feeling down, depressed, or hopeless: not at all 3. Trouble falling or staying asleep, or sleeping too much: not at all 4. Feeling tired or having little energy: not at all 5. Poor appetite or overeating: not at all 6. Feeling bad about yourself - or that you are a failure or have let yourself or your family down: not at all 7. Trouble concentrating on things, such as reading the newspaper or watching television: not at all 8. Moving or speaking so slowly that other people could have noticed. Or the opposite - being so fidgety or restless that you have been moving around a lot more than usual: not at all 9. Thoughts that you would be better off or of hurting yourself in some way: not at all Total score: 0 Depression Screening Interpretation: Negative Depression Screening Done: Yes 39186 - PHQ-9 Billing: Yes Source: Developed by Drs. Jose Olmos, Mirta Giles, Tc Montoya and colleagues, with an educational jay from [employer]. Thrive Questionnaire Date Thrive assessed: 06/05/24 I am a: Patient What is your living situation today?: I have a steady place to live Within the past 12 months, did the food you bought not last and you didn't have the money to get more?: Never true Within the past 12 months, did you worry whether your food would run out before you got money to buy more?: Never true Do you have trouble paying for medicines?: No Do you have trouble getting transportation to medical appointments?: No Do you have trouble paying your heating and electricity bill?: No Do you have trouble taking care of your child, family member or friend?: No Do you have trouble with day-to-day activities such as bathing, preparing meals, shopping, managing finances, etc.?: No Are you currently unemployed and looking for a job?: No Are you interested in more education?: No Please select the resources that you would like help with: None Currently or been in a relationship where the following occur: No concerns reported THRIVE Score: 0 AUDIT C Alcohol Use Questionnaire (AUDIT-C) 1. How often do you have a drink containing alcohol?: Never 3. How often do you have six or more drinks on one occasion?: Never Total Score: 0 ROXANE-7 AMB Questionnaire ROXANE-7 Date ROXANE - 7 assessed: 06/05/24 Feeling nervous, anxious, or on edge: 0 = Not at all Not being able to stop or control worryin = Not at all Worrying too much about different things: 0 = Not at all Trouble relaxin = Not at all Being so restless that it is hard to sit still: 0 = Not at all Becoming easily annoyed or irritable: 0 = Not at all Feeling afraid as if something awful might happen: 0 = Not at all Total ROXANE-7 score (0-4 normal; 5-9 mild; 10-14 moderate; 15-21 severe): 0 Source: Developed by Drs. Jose Olmos, Mirta Giles, Tc Montoya and colleagues, with an educational jay from [employer]. ROXANE-7 Assessment Billing ROXANE-7 Assessment Tool: ROXANE-7 Assessment 14610 Review of Systems Const Denies headache(s) Eyes Denies loss of vision ENT Denies vertigo, Denies dizziness, Denies headache(s) and Denies sore throat Card Denies chest pain, Denies leg edema and Denies lightheadedness Resp Denies cough, Denies hemoptysis and Denies wheezing GI Denies abdominal pain, Denies melena, Denies constipation, Denies diarrhea and Denies vomiting Denies urinary frequency, Denies dysuria and Denies urinary urgency Musc Denies arthralgias, Denies joint swelling, Denies numbness and Denies tingling Neuro Denies Abnormal speech present, Denies behavioral changes, Denies vertigo, Denies dizziness, Denies headache(s), Denies loss of vision, Denies memory loss, Denies numbness and Denies tingling Psych Denies anxiety, Denies behavioral changes, Denies depression, Denies memory loss and Denies panic attacks Peng/Lymph Denies easy bleeding and Denies easy bruising Aller/Immun Denies wheezing Physical exam (Primary Care) Vital Signs: Last Vital Signs Pulse 80 06/05/24 12:56 BP 120/72 06/05/24 12:56 Pulse Ox 98 06/05/24 12:56 Oxygen Delivery Method Room Air 06/05/24 12:56 BMI result Body Mass Index 31.9 Tobacco/Smoking Status: Tobacco use Status Tobacco use date assessed 06/05/24 06/05/24 12:57 Patient Tobacco Use Status Former Tobacco user 06/05/24 12:55 Tobacco use type Cigarette 06/05/24 12:55 e-Cigarette/Vaping Use Never Used 06/05/24 12:55 PHQ-9: PHQ-9 Score PHQ-9: Total score 0 06/05/24 13:09 Depression Screening Interpretation: Negative Thrive Assessment: Date of Thrive Assessment Date Thrive assessed 06/05/24 06/05/24 12:58 Currently or been in a relationship where the following occur: No concerns reported Const General: healthy appearing, no acute distress, alert and awake Nutritional Appearance: well nourished Orientation/consciousness: oriented to person, oriented to place and oriented to time HENMT Ears: TM's normal bilaterally General nose exam: Normal nasal mucous membranes and turbinates present Eyes Conjunctivae: conjunctivae normal Sclerae: sclerae normal Pupils: Equal, round and reactive pupils present Neck Neck: Yes no lymphadenopathy and Yes no JVD Thyroid: Thyroid normal Carotids: no bruits Resp Effort & Inspection: normal respiratory effort and not tachypneic Auscultation: no crackles, no rales, no rhonchi and no wheezes Cardio Rate: regular rate Rhythm: regular rhythm Heart sounds: no murmurs and normal S1 and S2 GI Palpation (GI): Soft to palpation, nontender, no hepatomegaly and no splenomegaly Auscultation: normal bowel sounds Skin General skin exam: no rashes or lesions noted and dry skin Neuro General: oriented to person, oriented to place and oriented to time Cranial nerves: Yes Equal, round and reactive pupils present Speech: No Abnormal speech present Gait exam (Neuro): Normal gait present Motor exam (neuro): no tremor noted Extrem Right upper extremity: full ROM Left upper extremity: full ROM Right lower extremity: full ROM; no edema Left lower extremity: full ROM; no edema Psych Mental Status: mental status grossly normal Speech and movement: Normal speech and movement present Affect: normal affect Attitude: cooperative Thought process: Normal thought process present Assessment and Plan Assessment & Plan (1) Hospital discharge follow-up: Code(s): Z09 - Encounter for follow-up examination after completed treatment for conditions other than malignant neoplasm Plan: As per HPI (2) SVT (supraventricular tachycardia): Code(s): I47.10 - Supraventricular tachycardia, unspecified Plan: As per HPI patient now on a Holter monitor will follow-up with cardiology in late 06/19/2024. She has been on metoprolol 12.5 b.i.d. with good effect on her blood pressure and heart rates. Metoprolol 25 mg b.i.d. seem to have caused bradycardia. (3) Carotid stenosis, left: Code(s): I65.22 - Occlusion and stenosis of left carotid artery Plan: Due to the carotid stenosis will start low-dose Lipitor for goal LDL to be below 100. (4) Cervical stenosis of spinal canal: Code(s): M48.02 - Spinal stenosis, cervical region Plan: Incidental note of severe stenosis in the cervical spine. Has followed up with neurosurgeon as outpatient. Otherwise symptoms are not too bad does have a bit of a stiff neck though does not have any severe numbness and tingling in upper extremities or upper extremity weakness. She would like to hold off on surgery Orders: Orders Comprehensive [place]. Panel Fast 06/05/24 I65.22 - Occlusion and stenosis of left carotid artery Lipid Panel 06/05/24 I65.22 - Occlusion and stenosis of left carotid artery Complete Blood Count no Diff 06/05/24 I65.22 - Occlusion and stenosis of left carotid artery Medications: New atorvastatin (Lipitor) 10 mg PO BEDTIME 90 tabs 1RF 90 days I65.22 - Occlusion and stenosis of left carotid artery Patient Instructions: Goal: LDL to remain below 100 Barriers: Adherence to physical activity and healthy eating habits Coding Level of Care Code Est Pt Level 4 (88525) Diagnoses Hospital discharge follow-up Z09 SVT (supraventricular tachycardia) I47.10 Carotid stenosis, left I65.22 Cervical stenosis of spinal canal M48.02 Additional Codes ROXANE-7 Assessment Billing - ROXANE-7 Assessment Tool: ROXANE-7 Assessment [id number] ([id number])
[2024-06-05 12:56] VITALS: BP 120/72; PULSE 80; O2SAT 98; BMI 31.9
== END 2024-06-05 15:20 | disposition home or self-care (01) ==
PROVIDERS: PCP Physician Assistant; Visit Provider Physician Assistant
DX: I47.10 Supraventricular tachycardia, unspecified (principal); I65.22 Occlusion and stenosis of left carotid artery; M48.02 Spinal stenosis, cervical region
CPT/HCPCS: 99214

== ENCOUNTER 2024-06-22 15:50 | Outpatient (REF) | payer MEDICARE, SELFPAY ==
[2024-06-22 16:37] LABS: Alanine Aminotransferase 15 U/L (0-31); Albumin Level 3.8 g/dL (3.5-5.0); Alkaline Phosphatase 80 U/L (39-117); Aspartate Amino Transferase 22 U/L (5-31); Bilirubin Direct 0.3 mg/dL (0.0-0.5); Total Protein 5.9 g/dL (6.5-8.0)
== END 2024-06-22 15:51 | disposition home or self-care (01) ==
LOC: HO.LNP 15:50
PROVIDERS: Visit Provider Internal Medicine
DX: K75.4 Autoimmune hepatitis (principal)
CPT/HCPCS: 80076

== ENCOUNTER 2024-06-25 14:36 | Outpatient (AMB) | payer MEDICARE, SELFPAY ==
[2024-06-25 14:43] VITALS: BP 136/80; PULSE 77; BMI 31.9
--- NOTE | 2024-06-25 14:43 | MHC.OFFVIS ---
Vital Signs 06/25/24 14:43 Height 5 ft 7 in Weight 204 lb BMI 31.9 BP 136/80 Blood Pressure Location Lt brachial Position Sitting Pulse 77 Intake Visit Reasons: follow up/Holter Intake Note: Follow-up after holter c/o ? metoprolol and K+ ? need asa also atorvastatin was started and stopped after 2 week do to dizziness Oracle Technical Developer Required: No Speech Lang Path: Speech Lang Path Present Accompanied by: Friend Allergies cephalexin [CEPHALEXIN] Allergy (Severe, Verified 06/05/24 13:03) ANAPHYLAXIS morphine [MORPHINE] Allergy (Intermediate, Verified 06/05/24 13:03) RASHES AND HIVES, hives benzocaine Allergy (Unknown, Verified 06/05/24 13:03) Unknown clindamycin [CLINDAMYCIN] Allergy (Unknown, Verified 06/05/24 13:03) ANAPHYLAXIS gabapentin [GABAPENTIN] Allergy (Unknown, Verified 06/05/24 13:03) HIVES gluten [GLUTEN] Allergy (Unknown, Verified 06/05/24 13:03) NAUSEA & VOMITING oxycodone [OXYCODONE] Allergy (Unknown, Verified 06/05/24 13:03) RASH, hives povidone-iodine [From BETADINE] Allergy (Unknown, Verified 06/05/24 13:03) RASH soap [From BETADINE] Allergy (Unknown, Verified 06/05/24 13:03) UNKNOWN Clindamycin HCl Allergy (Unknown, Uncoded 06/05/24 13:03) anaphylaxis Gluten Allergy (Unknown, Uncoded 06/05/24 13:03) rashes,hives,diarrhea Medication List - Last Reconciled 06/25/24 by Darien Nicole MD cholecalciferol (vitamin D3) (Vitamin D3) 25 mcg PO DAILY cider [id number] 300-8.3 mg 1 tab PO DAILY docusate sodium 50 mg PO DAILY PRN magnesium oxide 250 mg PO DAILY metoprolol tartrate 12.5 mg See Protocol PO BID multivitamin 1 tab PO DAILY prednisone 2.5 mg PO Q48H prednisone 5 mg PO Q48H prothrombin time test strips (Coaguchek XS strips) As directed warfarin 1 tab PO BEDTIME warfarin 1 mg PO DAILY HPI Comments Details: Ana Laura comes for follow-up. Underwent a Holter monitor which did not show any evidence of SVT but showed symptomatic occasional PACs and PVCs. She self reduced her metoprolol dose as she said on higher metoprolol dose she was not feeling well with fatigue and dizziness. She also stopped her statin because she thought this was giving a dizziness. Her symptoms improved after reducing metoprolol dose. No syncopal episodes. She is currently on warfarin due to antiphospholipid antibody syndrome. [facility] Medical History Adult general medical exam Screening for diabetes mellitus Stroke Rheumatoid arthritis Breast cancer HTN (hypertension) Surgical History H/O spinal fusion History of bilateral knee replacement History of hip replacement H/O lumpectomy Family History Father Stented coronary artery Stroke Mother Parkinson disease Social History Household Members: None Housing: House Do you presently have visiting nurse or other home services: No Alcohol intake: never Patient Tobacco Use Status: Former Tobacco user Tobacco use type: Cigarette Years Smoked: quit in 1972 e-Cigarette/Vaping Use: Never Used Second Hand Smoke Exposure: No Substance Use Type: Marijuana Advance Directives Date on File: 10/29/22 service: No Current occupational status: disabled Cognitive needs: Yes Hearing needs: No Vision needs: Yes Review of Systems Const Denies chills, Denies fatigue, Denies fever(s), Denies frequent falls, Denies weakness, Denies weight gain and Denies weight loss ENT Denies dizziness Card Denies chest pain, Denies leg edema, Denies lightheadedness, Denies palpitations, Denies dyspnea, Denies dyspnea on exertion, Denies orthopnea and Denies other (loss of consciousness) Resp Denies cough, Denies dyspnea and Denies dyspnea on exertion GI Denies hematochezia and Denies change in stool character Musc Denies abnormal gait, Denies muscle weakness, Denies numbness, Denies radiating pain into limb and Denies tingling Neuro Denies abnormal gait, Denies dizziness, Denies frequent falls, Denies numbness, Denies tingling and Denies weakness Endo Denies fatigue and Denies palpitations Physical Exam Vital Signs: Last Vital Signs Pulse 77 06/25/24 14:43 BP 136/80 06/25/24 14:43 BMI result Body Mass Index 31.9 Const General: cooperative, comfortable, no acute distress and alert Nutritional Appearance: obese Orientation/consciousness: patient oriented x3 Limitations: ambulation with walker Neck Neck: Yes trachea midline, Yes supple and Yes no JVD Resp Effort & Inspection: normal respiratory effort Auscultation: clear to auscultation bilaterally Cardio Jugular venous distension: no JVD Palpation: normal PMI Rate: regular rate Rhythm: regular rhythm Heart sounds: S1 normal heart sound present, S2 normal heart sound present, no click, no gallops and Murmur heart sound present systolic early, decrescendo and crescendo Skin General skin exam: no rashes or lesions noted and ecchymosis Neuro General: patient oriented x3 and no focal motor deficits Extrem General: Yes no clubbing, cyanosis or edema Assessment & Plan Assessment & Plan (1) SVT (supraventricular tachycardia): Code(s): I47.10 - Supraventricular tachycardia, unspecified Category: Medical Plan: SVT seems to be overall suppressed clinically on metoprolol therapy. She could not tolerate higher dose. She continues to have symptomatic PACs and PVCs. Benign nature of this was discussed. Avoidance of stimulants was discussed. Vagal maneuvers were discussed. Stress mitigation strategies to be pursued. (2) Aortic stenosis: Code(s): I35.0 - Nonrheumatic aortic (valve) stenosis Category: Medical Plan: Aortic stenosis which is mild. Continue aggressive medical therapy. Currently on warfarin therapy which is appropriate. Target INR between 2 and 3. She should also be on statin therapy to target goal LDL less than 70 mg/dL. Discuss with underlying vascular disease which indicates statin therapy. She will try it. Will follow up in the clinic in 1 year's time otherwise. Thank you for allowing me to partake in his care Medications: Changed From metoprolol tartrate 25 mg See Protocol PO BID 90 days 180 tabs 0RF To metoprolol tartrate 12.5 mg See Protocol PO BID Coding Level of Care Code Est Pt Level 4 (34724) Diagnoses SVT (supraventricular tachycardia) I47.10 Aortic stenosis I35.0
== END 2024-06-25 15:38 | disposition home or self-care (01) ==
PROVIDERS: PCP Physician Assistant; Visit Provider Internal Medicine Cardiovascular Disease
DX: I47.10 Supraventricular tachycardia, unspecified (principal); I35.0 Nonrheumatic aortic (valve) stenosis
CPT/HCPCS: 99214

== ENCOUNTER → 2024-06-25 14:36 | Outpatient (BNVA) | payer MEDICARE, SELFPAY | PROVIDERS: PCP Physician Assistant; Visit Provider Internal Medicine Cardiovascular Disease | DX: I47.10 Supraventricular tachycardia, unspecified (principal); I35.0 Nonrheumatic aortic (valve) stenosis | CPT/HCPCS: 99212 ==

== ENCOUNTER → 2024-06-26 14:26 | Outpatient (RCR) | payer MEDICARE, SELFPAY ==
--- NOTE | 2020-09-05 15:22 | P.PNHO_ITS ---
[facility] Telehealth - Telehealth Patient Identification confirmed using: Name, : Yes Patient verbally consented to billing insurance company: Yes Patient informed of any privacy concerns related to visit: Yes Medical Summary - Medical Summary Chief complaint: follow-up for: Anti APL antibody syndrome. Medical Summary: DIAGNOSIS: Antiphospholipid antibody syndrome. CURRENT THERAPY: WARFARIN 3 mg daily. KEEPING INR AT 2.1. Interval History Interval history: This is a pleasant 80 year-old lady, with whom a tele visit was held. She tells me that she has been extremely well. INR from yesterday was 2.2 and today was 1.9. She takes 3 mg of warfarin. She has had a life long history of arthritis. she has been diagnosed with mixed connective tissue disease. She has been under the care of Dr. Tim, from Rheumatolgy. back in december, He had started her on Cymbalta, 20 mg, for the pain. That has helped. However her LFT started going up. She has autoimmune hepatitis. She is under Dr. Salgado's care. She has been taking Prednisone 5 mg recently. He actually wanted her to go up to 30 mg however she wanted to wait. She is due for labs on September 15. If LFTs do not declined then she may half to go up. Denies fever nor chills. No LEZAMA nor dizziness. She denies chest pain nor trouble breathing. No abdominal pain nausea vomiting heartburn nor indigestion. Bowels are moving, without any gross blood in it. She has had a good appetite. That has actually improved with the prednisone. She has gained weight, recently. 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 She has been doing housework chores. Washing dishes and doing laundry. She has her groceries being delivered at home by [employer]. She actually feels much better, that way. It has made her more active. She keeps busy. She has been working in her garden. She reads an does crafts. She is in good spirits. The rest of the review of systems is unremarkable. Review of Systems - Constitutional Reports body ache(s), Denies daytime sleepiness, Denies night sweats, Denies weakness, Denies weight loss - Eyes Denies blurry vision - ENT Reports system reviewed and no additional complaints, except as documented - Cardiovascular Denies chest pain at rest - Respiratory Denies chest congestion - Gastrointestinal Denies abdominal pain, Denies change in bowel habits - Musculoskeletal Reports back pain, Reports body aches - Integumentary/Breasts Skin/Breast: Denies bleeding lesions - Neurologic Reports system reviewed and no additional complaints, except as documented - Psychiatric Denies anxiety - Endocrine Denies cold intolerance - Hematologic/Lymphatic Denies easy bruising Home Medications and Allergies Home Medications Medication Instructions Recorded Confirmed Type cholecalciferol (vitamin D3) 25 mcg PO DAILY 09/05/20 09/05/20 History [Vitamin D3] docusate sodium PO 09/05/20 History magnesium oxide 250 mg PO DAILY 09/05/20 09/05/20 History prednisone 5 mg PO DAILY 09/05/20 09/05/20 History warfarin 1 tab PO DAILY 09/05/20 09/05/20 History Allergies Allergy/AdvReac Type Severity Reaction Status Date / Time cephalexin [CEPHALEXIN] Allergy Severe ANAPHYLAXIS Unverified 07/17/20 17:06 morphine [MORPHINE] Allergy Intermediate RASHES AND Unverified 07/17/20 17:06 HIVES, hives benzocaine Allergy Unknown Verified 03/08/16 00:00 clindamycin [CLINDAMYCIN] Allergy Unknown ANAPHYLAXIS Unverified 07/17/20 17:06 gabapentin [GABAPENTIN] Allergy Unknown HIVES Unverified 07/17/20 17:06 gluten [GLUTEN] Allergy Unknown NAUSEA & Unverified 07/17/20 17:06 VOMITING oxycodone [OXYCODONE] Allergy Unknown RASH, hives Unverified 07/17/20 17:06 povidone-iodine Allergy Unknown RASH Unverified 07/17/20 17:06 [From BETADINE] soap [From BETADINE] Allergy Unknown UNKNOWN Unverified 07/17/20 17:06 Clindamycin HCl Allergy Unknown anaphylaxis Uncoded 06/26/20 00:00 Gluten Allergy Unknown rashes,hive Uncoded 06/26/20 00:00 s,diarrhea Exam - Constitutional Present: no acute distress - Routine HEENT Exam Head: Present: normal inspection ENT: Present: mucous membranes moist - Routine Neck Exam Present: full ROM - Routine Respiratory Exam Present: CTAB - Routine Cardiovascular Exam Cardiovascular: Present: RRR, S1, S2 - Routine Abdominal Exam Present: nontender Progress Note: A/P (1) APL (antiphospholipid syndrome) Status: Acute Assessment and plan: This is a pleasant 79 year's old lady, with a history of Antiphospholipid antibody syndrome. The patient has a history of stroke. She had been maintained on Coumadin, for around 3 years, up until she presented with very high LFTs. She had significant Thrombocytopenia. She was diagnosed with Autoimmune Hepatitis. She had a flare, months ago. She is on a slow Prednisone taper. She has been Down to 5 mg aleternating with 2.5 mg, every other day. She is being taperred off the prednisone, under Dr. Salgado's guidance. INR 2 - 2.3. On 3 mg of Coumadin daily. No nose bleeds, lately. She is being followed by Carlos Napoles from Rheumatology. He proceeded with a workup. She had a positive ISAIAH, titer 1: 640. All specific autoimmune labs were negative. Sed rate normal. CRP 88.1. X-rays feet showed: Left 0A of 2nd, 3rd TMT joints, plantar and calcaneal spur. Right foot 0A navicular joint, 2nd and 3rd TMT joints. Recommended home physical therapy exercise program. Ultrasound of the lower extremities from 07/21/18, was negative for DVT. She was advised to keep her legs elevated and conitnue to take the diuretic. She seems to be doing extremely well. She is very active at home. Recently LFTs were elevated. She stop the Cymbalta. She had repeat labs on 08/21: LFTs: 0.5/98/88/76. PLAN: She will have repeat labs on 09/15. Will then decide about prednisone dose, currently she is on 5 mg a day. I would continue the Warfarin, for now. I will see her back in 3 months for a followup. She will call for any questions or problems prior to that time. She will be following up with Dr. Salgado later in the month, regarding her prednisone taper. 30 minutes were spent counseling patient, coordinating her care, including the tele interview, reviewing labs, imaging and reviewing therapy. Thank you, CC: Dr. Frederick Sapp. Dr. Jose Salgado. Carlos Napoles. Code Status FULL CODE - Time Spent With Patient Total time spent is greater than 50% in coordination of care (as documented) at patient's floor/unit and/or counseling patient: 25 - 35 minutes
== END | disposition home or self-care (01) ==
LOC: HO.ONC 09-05 14:13
PROVIDERS: PCP Internal Medicine; Visit Provider Internal Medicine Medical Oncology
DX: D68.61 Antiphospholipid syndrome (principal); D69.6 Thrombocytopenia, unspecified; K75.4 Autoimmune hepatitis; Z79.01 Long term (current) use of anticoagulants; Z79.52 Long term (current) use of systemic steroids; Z86.73 Personal history of transient ischemic attack (TIA), and cerebral infarction without residual deficits
CPT/HCPCS: Q3014

== ENCOUNTER 2024-11-22 16:45 | Outpatient (REF) | payer MEDICARE, SELFPAY ==
[2024-11-22 17:16] LABS: Alanine Aminotransferase 23 U/L (0-31); Albumin Level 3.7 g/dL (3.5-5.0); Alkaline Phosphatase 86 U/L (39-117); Aspartate Amino Transferase 34 U/L (5-31); Bilirubin Direct 0.4 mg/dL (0.0-0.5); Bilirubin Total 1.1 mg/dL (0.0-1.0)
== END 2024-11-22 16:46 | disposition home or self-care (01) ==
LOC: HO.LNP 16:45
PROVIDERS: Visit Provider Internal Medicine
DX: K75.4 Autoimmune hepatitis (principal)
CPT/HCPCS: 80076

== ENCOUNTER 2025-01-22 09:50 | Outpatient (AMB) | payer MEDICARE, SELFPAY ==
[2025-01-22 09:53] VITALS: BP 148/82; PULSE 80; O2SAT 98; BMI 31.0
--- NOTE | 2025-01-22 09:53 | MHC.PC.OV ---
Vital Signs 01/22/25 09:53 Height 5 ft 7 in Weight 198 lb BMI 31.0 BP 148/82 H Blood Pressure Location Lt brachial Position Sitting Pulse 80 Pulse Source Pulse Oximeter Pulse Oximetry (%) 98 Oxygen Delivery Method Room Air Intake Visit Reasons: Arthritis Instructional Systems Specialist Required: No Accompanied by: inpatient care manager rnMike Allergies cephalexin [CEPHALEXIN] Allergy (Severe, Verified 01/22/25 10:05) ANAPHYLAXIS morphine [MORPHINE] Allergy (Intermediate, Verified 01/22/25 10:05) RASHES AND HIVES, hives benzocaine Allergy (Unknown, Verified 01/22/25 10:05) Unknown clindamycin [CLINDAMYCIN] Allergy (Unknown, Verified 01/22/25 10:05) ANAPHYLAXIS gabapentin [GABAPENTIN] Allergy (Unknown, Verified 01/22/25 10:05) HIVES gluten [GLUTEN] Allergy (Unknown, Verified 01/22/25 10:05) NAUSEA & VOMITING oxycodone [OXYCODONE] Allergy (Unknown, Verified 01/22/25 10:05) RASH, hives povidone-iodine [From BETADINE] Allergy (Unknown, Verified 01/22/25 10:05) RASH soap [From BETADINE] Allergy (Unknown, Verified 01/22/25 10:05) UNKNOWN Clindamycin HCl Allergy (Unknown, Uncoded 01/22/25 10:05) anaphylaxis Gluten Allergy (Unknown, Uncoded 01/22/25 10:05) rashes,hives,diarrhea Medication List - Last Reconciled 01/22/25 by Frederick Sapp PA-C atorvastatin (Lipitor) 10 mg PO BEDTIME 90 days cholecalciferol (vitamin D3) (Vitamin D3) 25 mcg PO DAILY cider [id number] 300-8.3 mg 1 tab PO DAILY docusate sodium 50 mg PO DAILY PRN magnesium oxide 250 mg PO DAILY metoprolol succinate ER 25 mg PO DAILY multivitamin 1 tab PO DAILY prednisone 2.5 mg PO Q48H prednisone 5 mg PO Q48H prothrombin time test strips (Coaguchek XS strips) As directed warfarin 1 tab PO BEDTIME warfarin 1 mg PO DAILY Tobacco use date assessed: 01/22/25 Fall risk assessment: No Falls in past year Last assessed Fall Risk: 01/22/25 Dental Screening Dental Screen Date: 01/22/25 Did you have a dental visit in the last 12 months?: No Did you have a dental problem in the last 6 months where you did not have access to dental care?: No Was dental information given to patient?: Patient has dentist HPI Arthritis HPI Details Ana Laura is a 84-year-old female here today for a follow-up visit. . Patient has a past medical history significant for hypertension, h/o Breast cancer, [place] CVA, antiphospholipid syndome, autoimmune hepatitis, depression. Carpal tunnel syndrome: Patient complains of carpal tunnel syndrome and arthritis in several joints requiring referrals for specialist evaluation. The carpal tunnel syndrome is confirmed by a nerve conduction test in 2022, and she reports significant pain in both thumb joints due to osteoarthritis, severely limiting her function. Additionally, arthritis in her shoulder joints contributes to her difficulty with arm elevation, with these symptoms showing progression over time. SVT: and heart rates have been on the lower side and she has been somewhat symptomatic thus have reduced her metoprolol dose. Currently patient feels well on metoprolol 12.5 b.i.d.. .. Antiphospholipid syndrome: Patient continues on anticoagulation with warfarin. Her INR seems to have been stable. Do his no overt signs of bleeding. .. Connective tissue disease : was previously followed by . Has been following a low inflammatory diet and feels it is working to help reduce her skin issues and joint pains. As far as her cervical spine stenosis she has followed up with neurosurgeon and no surgery offered at this time. Patient is not interested in any surgery as her symptoms are not severe. She reports only having a sore neck she attributes to age and what was thought to be being nerve neuropathy symptoms in her left upper extremity [facility] Medical History Adult general medical exam Screening for diabetes mellitus Stroke Rheumatoid arthritis Breast cancer HTN (hypertension) Surgical History H/O spinal fusion History of bilateral knee replacement History of hip replacement H/O lumpectomy Family History Father Stented coronary artery Stroke Mother Parkinson disease Social History Household Members: None Housing: House Do you presently have visiting nurse or other home services: No Alcohol intake: never Patient Tobacco Use Status: Former Tobacco user Tobacco use type: Cigarette Years Smoked: quit in 1972 e-Cigarette/Vaping Use: Never Used Second Hand Smoke Exposure: No Substance Use Type: Marijuana Advance Directives Date on File: 10/29/22 service: No Current occupational status: disabled Cognitive needs: Yes Hearing needs: No Vision needs: Yes Questionnaire PHQ-9 Over the last 2 weeks, how often have you been bothered by any of the following problems? 1. Little interest or pleasure in doing things: not at all 2. Feeling down, depressed, or hopeless: not at all 3. Trouble falling or staying asleep, or sleeping too much: not at all 4. Feeling tired or having little energy: not at all 5. Poor appetite or overeating: not at all 6. Feeling bad about yourself - or that you are a failure or have let yourself or your family down: not at all 7. Trouble concentrating on things, such as reading the newspaper or watching television: not at all 8. Moving or speaking so slowly that other people could have noticed. Or the opposite - being so fidgety or restless that you have been moving around a lot more than usual: not at all 9. Thoughts that you would be better off or of hurting yourself in some way: not at all Total score: 0 Depression Screening Interpretation: Negative Depression Screening Done: Yes 20352 - PHQ-9 Billing: Yes Source: Developed by Drs. Jose Olmos, Mirta Giles, Tc Montoya and colleagues, with an educational jay from [employer]. Thrive Questionnaire Date Thrive assessed: 01/22/25 I am a: Patient What is your living situation today?: I have a steady place to live Within the past 12 months, did the food you bought not last and you didn't have the money to get more?: Never true Within the past 12 months, did you worry whether your food would run out before you got money to buy more?: Never true Do you have trouble paying for medicines?: No Do you have trouble getting transportation to medical appointments?: No Do you have trouble paying your heating and electricity bill?: No Do you have trouble taking care of your child, family member or friend?: No Do you have trouble with day-to-day activities such as bathing, preparing meals, shopping, managing finances, etc.?: No Are you currently unemployed and looking for a job?: No Are you interested in more education?: No Please select the resources that you would like help with: None Currently or been in a relationship where the following occur: No concerns reported THRIVE Score: 0 AUDIT C Alcohol Use Questionnaire (AUDIT-C) 1. How often do you have a drink containing alcohol?: Never 3. How often do you have six or more drinks on one occasion?: Never Total Score: 0 ROXANE-7 AMB Questionnaire ROXANE-7 Date ROXANE - 7 assessed: 01/22/25 Feeling nervous, anxious, or on edge: 0 = Not at all Not being able to stop or control worryin = Not at all Worrying too much about different things: 0 = Not at all Trouble relaxin = Not at all Being so restless that it is hard to sit still: 0 = Not at all Becoming easily annoyed or irritable: 0 = Not at all Feeling afraid as if something awful might happen: 0 = Not at all Total ROXANE-7 score (0-4 normal; 5-9 mild; 10-14 moderate; 15-21 severe): 0 Source: Developed by Drs. Jose Olmos, Mirta Giles, Tc Montoya and colleagues, with an educational jay from [employer]. ROXANE-7 Assessment Billing ROXANE-7 Assessment Tool: ROXANE-7 Assessment 44593 Review of Systems Const Denies headache(s) Eyes Denies loss of vision ENT Denies vertigo, Denies dizziness, Denies headache(s) and Denies sore throat Card Denies chest pain, Denies leg edema and Denies lightheadedness Resp Denies cough, Denies hemoptysis and Denies wheezing GI Denies abdominal pain, Denies melena, Denies constipation, Denies diarrhea and Denies vomiting Denies urinary frequency, Denies dysuria and Denies urinary urgency Musc Denies arthralgias, Denies joint swelling, Denies numbness and Denies tingling Neuro Denies Abnormal speech present, Denies behavioral changes, Denies vertigo, Denies dizziness, Denies headache(s), Denies loss of vision, Denies memory loss, Denies numbness and Denies tingling Psych Denies anxiety, Denies behavioral changes, Denies depression, Denies memory loss and Denies panic attacks Peng/Lymph Denies easy bleeding and Denies easy bruising Aller/Immun Denies wheezing Physical exam (Primary Care) Vital Signs: Last Vital Signs Pulse 80 01/22/25 09:53 BP 148/82 H 01/22/25 09:53 Pulse Ox 98 01/22/25 09:53 Oxygen Delivery Method Room Air 01/22/25 09:53 BMI result Body Mass Index 31.0 Tobacco/Smoking Status: Tobacco use Status Tobacco use date assessed 01/22/25 01/22/25 10:02 Patient Tobacco Use Status Former Tobacco user 01/22/25 09:53 Tobacco use type Cigarette 01/22/25 09:53 e-Cigarette/Vaping Use Never Used 01/22/25 09:53 PHQ-9: PHQ-9 Score PHQ-9: Total score 0 01/22/25 10:09 Depression Screening Interpretation: Negative Thrive Assessment: Date of Thrive Assessment Date Thrive assessed 01/22/25 01/22/25 09:53 Currently or been in a relationship where the following occur: No concerns reported Const General: healthy appearing, no acute distress, alert and awake Nutritional Appearance: well nourished Orientation/consciousness: oriented to person, oriented to place and oriented to time HENMT Ears: TM's normal bilaterally General nose exam: Normal nasal mucous membranes and turbinates present Eyes Conjunctivae: conjunctivae normal Sclerae: sclerae normal Pupils: Equal, round and reactive pupils present Neck Neck: Yes no lymphadenopathy and Yes no JVD Thyroid: Thyroid normal Carotids: no bruits Resp Effort & Inspection: normal respiratory effort and not tachypneic Auscultation: no crackles, no rales, no rhonchi and no wheezes Cardio Rate: regular rate Rhythm: regular rhythm Heart sounds: no murmurs and normal S1 and S2 GI Palpation (GI): Soft to palpation, nontender, no hepatomegaly and no splenomegaly Auscultation: normal bowel sounds Skin General skin exam: no rashes or lesions noted and dry skin Neuro General: oriented to person, oriented to place and oriented to time Cranial nerves: Yes Equal, round and reactive pupils present Speech: No Abnormal speech present Gait exam (Neuro): Normal gait present Motor exam (neuro): no tremor noted Extrem Other: NOTICEABLE ARTHRITIC DEFORMITIES IN BOTH HANDS AND WRISTS Right upper extremity: full ROM Left upper extremity: full ROM Right lower extremity: full ROM; no edema Left lower extremity: full ROM; no edema Psych Mental Status: mental status grossly normal Speech and movement: Normal speech and movement present Affect: normal affect Attitude: cooperative Thought process: Normal thought process present Coding Level of Care Code Est Pt Level 4 (58039) Diagnoses Carpal tunnel syndrome of left wrist G56.02 Arthritis of hand, left M19.042 Undifferentiated connective tissue disease M35.9 Additional Codes ROXANE-7 Assessment Billing - ROXANE-7 Assessment Tool: ROXANE-7 Assessment 52983 ([id number]) PHQ-9 - 57296 - PHQ-9 Billing: Yes ([id number]) Assessment & Plan Assessment & Plan (1) Carpal tunnel syndrome of left wrist: Code(s): G56.02 - Carpal tunnel syndrome, left upper limb Category: Medical Plan: Referral to [facility] for surgical evaluation of carpal tunnel syndrome confirmed by nerve conduction study. Possible reevaluation of nerve conduction studies discussed. (2) Arthritis of hand, left: Code(s): M19.042 - Primary osteoarthritis, left hand Category: Medical Plan: Referral for shoulder arthritis assessment and potential management strategies including pain relief and physical therapy options. (3) Undifferentiated connective tissue disease: Code(s): M35.9 - Systemic involvement of connective tissue, unspecified Category: Medical Plan: Continuous monitoring and referral to a clinical science liaison for reassessment and diagnostic clarification. Follow-up blood tests anticipated. Orders: Referrals Orthopedics Referral G56.02 - Carpal tunnel syndrome, left upper limb, M19.042 - Primary osteoarthritis, left hand Rheumatology Referral M19.042 - Primary osteoarthritis, left hand
--- OUTSIDE RECORDS SUMMARY | 2025-01-22 11:17 | XMS_ITS ---
Author Organization [facility] Address [address] [place] [address] Care Team Providers Care Benzol Still Operator Name Role Phone Frederick Sapp Primary Care Provider Unavailab Jose Lemos Unavailable [phone] TONI GODDARD Unavailable Unavailable REASON FOR VISIT new script for prednisone Medications Medication SIG (Take, Route, Fr equency, Duration) Notes Start Date End Date Status predniSONE 2.5 MG 1 tablet Orally Use 1 of the 2.5mg tablets every other day alternating with the 5mg prednisone tablet evry other day for 30 day(s) 08/16/2023 Active Encounters Encounter Location Date Provider Diagnosis [facility] [address] [place] [phone] 08/16/2023 Jose Salgado Plan Of Treatment Medication Medication Name Sig Start Date Stop Date Notes predniSONE 2.5 MG 1 tablet Orally Use 1 of the 2.5mg tablets every other day alternating with the 5mg prednisone tablet evry other day for 30 day(s) 08/16/2023 Progress Notes * GIOVANY HER VDOB:1940 (83 yo F)Acc No.[id number]:08/16/2023 Patient:?GIOVANY HER V :1940???Age:83 Y???Sex:Female Address:[address] [place] [address], [address] * Refills? Start predniSONE Tablet, 2.5 MG, Orally, 30, 1 tablet, Use 1 of the 2.5mg tablets every other day alternating with the 5mg prednisone tablet evry other day, 30 day(s), Refills=3 * true * Date:? Generated for Yulia ramirez/Reinier/Daviditting on:?01/22/2025 11:17 AM EDT
--- OUTSIDE RECORDS SUMMARY | 2025-01-22 11:17 | XMS_ITS ---
Author Organization [facility] Address [address] [place] [phone] Care Team Providers Care Owner/Photographer Name Role Phone Frederick Sapp Primary Care Provider Unavailab Jose Lemos Unavailable [phone] TONI GODDARD Unavailable Unavailable REASON FOR VISIT getting tooth pulled Encounters Encounter Location Date Provider Diagnosis [facility] [address] [place] [address] 09/26/2023 Jose Salgado Plan Of Treatment No Information Progress Notes * GIOVANY HER VDOB:1940 (83 yo F)Acc No.[id number]:09/26/2023 Patient:?GIOVANY HER V :1940???Age:83 Y???Sex:Female Address:[address] [place] [address], [address] * true * Date:? Generated for Yulia ramirez/Reinier/eTransmitting on:?01/22/2025 11:17 AM EDT
--- OUTSIDE RECORDS SUMMARY | 2025-01-22 11:17 | XMS_ITS ---
Author Organization [facility] Address [address] [place] [phone] Care Team Providers Care Voicer Name Role Phone Frederick Sapp Primary Care Provider Unavailab Jose Lemos Unavailable [phone] TONI GODDARD Unavailable Unavailable REASON FOR VISIT labs in February Encounters Encounter Location Date Provider Diagnosis [facility] [address] [place] [address] 04/26/2024 Jose Salgado Autoimmune hepatitis K75.4 Assessments Encounter Date Diagnosis (ICD Code) Assessment Notes Treatment Notes Treatment Clinical Notes Section Notes 04/26/2024 Autoimmune hepatitis (ICD-10 - K75.4) Plan Of Treatment Pending Test Test Name Order Date LIVER PROFILE 04/26/2024 Progress Notes * GIOVANY HER VDOB:1940 (83 yo F)Acc No.[id number]:04/26/2024 Patient:?GIOVANY HER V :1940???Age:83 Y???Sex:Female Address:[address] [place] [address], [address] Subjective: * Chief Complaints: * ???labs in February * Medical History:? * Surgical History:? * Hospitalization/Major Diagno stic Procedure:? * Medications:? Objective: Assessment: * Assessment: 1.?Autoimmune hepatitis - K7 5.4 (Primary)? Plan: * Treatment: * Procedure Codes:? * true * Date:? Generated for Printi ng/Faxing/eTransmitting on:?01/22/2025 11:17 AM EDT
== END 2025-01-22 10:33 | disposition home or self-care (01) ==
LOC: HO.HMCH 09:51
PROVIDERS: PCP Physician Assistant; Visit Provider Physician Assistant
DX: G56.02 Carpal tunnel syndrome, left upper limb (principal); M19.042 Primary osteoarthritis, left hand; M35.9 Systemic involvement of connective tissue, unspecified

== ENCOUNTER → 2025-01-22 09:50 | Outpatient (BNVA) | payer MEDICARE, SELFPAY | PROVIDERS: PCP Physician Assistant; Visit Provider Physician Assistant | DX: G56.02 Carpal tunnel syndrome, left upper limb (principal); M19.042 Primary osteoarthritis, left hand; M35.9 Systemic involvement of connective tissue, unspecified | CPT/HCPCS: 96127; 99212 ==

== ENCOUNTER 2025-04-01 12:26 | Outpatient (AMB) | payer MEDICARE, SELFPAY ==
[2025-04-01 12:59] VITALS: BMI 29.6
--- NOTE | 2025-04-01 12:59 | MHC.OFFVIS ---
Vital Signs 04/01/25 12:59 Height 5 ft 7 in Weight 189 lb BMI 29.6 Intake Visit Reasons: [employer]-B/L hand pain LT>RT Intake Note: Ana Laura is a 84 year old right hand dominant female who presents today as a new patient for evaluation of bilateral hand paresthesia, left greater than right. States about 1 month ago she was given a injection in her wrist and thumb joint. States this has been helping with the pain she felt and as well as the CTS. Hx of bilateral hand EMG and nerve conduction done. EMG/NCS done on 05/12/23 IMPRESSION: 1. Moderate to severe left and [id number] right median neuropathy across carpal tunnel. 2. Chronic bilateral mid cervical radiculopathy. Allergies cephalexin [CEPHALEXIN] Allergy (Severe, Verified 01/22/25 10:05) ANAPHYLAXIS morphine [MORPHINE] Allergy (Intermediate, Verified 01/22/25 10:05) RASHES AND HIVES, hives benzocaine Allergy (Unknown, Verified 01/22/25 10:05) Unknown clindamycin [CLINDAMYCIN] Allergy (Unknown, Verified 01/22/25 10:05) ANAPHYLAXIS gabapentin [GABAPENTIN] Allergy (Unknown, Verified 01/22/25 10:05) HIVES gluten [GLUTEN] Allergy (Unknown, Verified 01/22/25 10:05) NAUSEA & VOMITING oxycodone [OXYCODONE] Allergy (Unknown, Verified 01/22/25 10:05) RASH, hives povidone-iodine [From BETADINE] Allergy (Unknown, Verified 01/22/25 10:05) RASH soap [From BETADINE] Allergy (Unknown, Verified 01/22/25 10:05) UNKNOWN Clindamycin HCl Allergy (Unknown, Uncoded 01/22/25 10:05) anaphylaxis Gluten Allergy (Unknown, Uncoded 01/22/25 10:05) rashes,hives,diarrhea HPI HPI [employer]-B/L hand pain LT>RT: Details: Ana Laura is a 84 year old right hand dominant female who presents today as a new patient for evaluation of bilateral hand paresthesia, left greater than right. States about 1 month ago she was given a injection in her wrist and thumb joint. States this has been helping with the pain she felt and as well as the CTS. Hx of bilateral hand EMG and nerve conduction done. EMG/NCS done on 05/12/23 IMPRESSION: 1. Moderate to severe left and [id number] right median neuropathy across carpal tunnel. 2. Chronic bilateral mid cervical radiculopathy. [facility] Medical History Adult general medical exam Screening for diabetes mellitus Stroke Rheumatoid arthritis Breast cancer HTN (hypertension) Surgical History H/O spinal fusion History of bilateral knee replacement History of hip replacement H/O lumpectomy Family History Father Stented coronary artery Stroke Mother Parkinson disease Social History Household Members: None Housing: House Do you presently have visiting nurse or other home services: No Alcohol intake: never Patient Tobacco Use Status: Former Tobacco user Tobacco use type: Cigarette Years Smoked: quit in 1972 e-Cigarette/Vaping Use: Never Used Second Hand Smoke Exposure: No Substance Use Type: Marijuana Advance Directives Date on File: 10/29/22 service: No Current occupational status: disabled Cognitive needs: Yes Hearing needs: No Vision needs: Yes Review of Systems Const All systems reviewed & are unremarkable except as noted in HPI and below Physical Exam Vital Signs: BMI result Body Mass Index 29.6 Extrem Other: Neuro: Decreased sensation in the median nerve distribution of bilateral hands normal sensation to all other digits of bilateral hands Significant bilateral thenar wasting, no evidence of intrinsic wasting weak APB muscle firing and good finger cross. Vascular: Capillary refill brisk. ROM: Patient can make a fist and extend all their digits. Skin: No lacerations or abrasions noted. General: No ecchymosis. No erythema or evidence of infection. Assessment & Plan Assessment & Plan (1) Bilateral carpal tunnel syndrome: Code(s): G56.03 - Carpal tunnel syndrome, bilateral upper limbs Category: Medical Plan 1. Carpal tunnel syndrome, left Dense numbness, APB wasting I educated the patient about the condition. I discussed both operative and nonoperative treatment options. The patient would like to proceed with surgery. The risks and benefits of operative treatment were discussed with the patient and the patient wishes to proceed with surgery. These risks include, but are not limited to, risk of damage to blood vessels, nerves, tendons, infection, recurrence, incomplete relief of preoperative symptoms, persistent pain, possible need for further surgery, and the risks associated with regional blocks and/or anesthesia. Plan is to take the patient to the operating room at some point in the next few weeks for the following procedures: 1. Left carpal tunnel release under local All of the preoperative paperwork including the consent was discussed today. All of the patient's questions were answered in the clinic today. The patient understands that they will be in contact with our surgical tech to discuss scheduling their procedure. Patient does have chronic steroid use due to autoimmune hepatitis, we will require Primary Care Provider clearance prior to surgery due to wound healing concerns Patient denies diabetes, blood thinners, asthma, heart issues, lung issues, kidney issues, or current smoking. Coding Level of Care Code New Pt Level 4 (62288) Diagnoses Bilateral carpal tunnel syndrome G56.03
--- OUTSIDE RECORDS SUMMARY | 2025-04-01 13:27 | XMS_ITS | Patient Health Record ---
Author Organization [facility] Address [address] [place] [address] Care Team Providers Care Nonprofit Director Name Role Phone Frederick Sapp Primary Care Provider Unavailab Jose Lemos Unavailable [phone] TONI GODDARD Unavailable Unavailable Allergies Allergen (clinical drug ingredient) Drug/Non Drug Allergy documented on EMR Reaction Allergy Type Onset Date Status Iodine Unknown Drug Allergy Active clindamycin Clindamycin HCl Unknown Drug Allergy Active cephalexin Cephalexin Unknown Drug Allergy Activ e povidone-iodine Betadine Unknown Drug Allergy A ctive Gluten gluten (uncoded) Unknown Allergy Act maryan gabapentin Neurontin hives Drug Allergy Active morphine Morphine Sulfate rash Drug Allergy Active Results Component Value Reference Range Notes Liver Panel Reviewed date:06/25/2024 07:31:42 AM Interpretation: Performing Lab:[facility], [address] [place] [phone] Notes/Report: Bilirubin Total 1.0 0.0-1.0 mg/dL Bilirubin Direct 0.3 0.0-0.5 mg/dL Aspartate Amino Transferase 22 5-31 U/L Alanine Aminotransferase 15 0-31 U/L Total Protein 5.9 6.5-8.0 g/dL Albumin Level 3.8 3.5-5.0 g/dL Alkaline Phosphatase 80 39-117 U/L Liver Panel Reviewed date:11/29/2024 07:32:46 AM Interpretation: Performing Lab:[facility], [address] [place] [phone] Notes/Report: Bilirubin Total 1.1 0.0-1.0 mg/dL Bilirubin Direct 0.4 0.0-0.5 mg/dL Aspartate Amino Transferase 34 5-31 U/L Alanine Aminotransferase 23 0-31 U/L Total Protein 6.0 6.5-8.0 g/dL Albumin Level 3.7 3.5-5.0 g/dL Alkaline Phosphatase 86 39-117 U/L Reason For Referral No Information Medications Medication SIG (Take, Route, Fr equency, [...] Once a day PRN Active Calcium Active Immunizations Vaccine Route Administration Date Status Comme nts Flu vaccine no Preserv 3 and > Unknown 08/08/2018 Admin istered Influenza Unknown 07/31/2019 Administered Influenza Unknown 08/05/2020 Administered Social History Tobacco Use: Social History Observation Description Date Details (start date - stop date) Former Smoker NA - NA Tobacco Use/Smoking Question Answer Notes Patient is a former smoker When did you stop smoking? 1973 How long has it been since you last smoked? > 10 years Alcohol Screen Question Answer Notes Did you have a drink containing alcohol in the p ast year? No Points 0 Interpretation Negative Section Notes: Nonsmoker; no sig alcohol Nonsmoker; no sig alcohol Nonsmoker; no sig alcohol Nonsmoker; no sig alcohol Nonsmoker; no sig alcohol Nonsmoker; no sig alcohol; t akes marijuana gummies Problems Problem Type SNOMED Code ICD Code Onset Dates Problem Status W/U Status Risk Notes Problem 749466376 Autoimmune hepatitis (K75.4) Active confirmed Problem 836480936 Elevated liver enzymes (R74.8) Active confirmed Problem Elevated liver enzymes level (747182096) Elevated liver function tests (R94.5) Active confirmed Problem 28223626 Hypertension, unspecified type (I10) Active confirmed Encounters Encounter Location Date Provider Diagnosis [facility] [address] [place] [phone] 04/26/2024 Jose Salgado Autoimmune hepatitis K75.4 Assessments Encounter Date Diagnosis (ICD Code) Assessment Notes Treatment Notes Treatment Clinical Notes Section Notes 04/26/2024 Autoimmune hepatitis (ICD-10 - K75.4) Plan Of Treatment Pending Test Test Name Order Date CHEM 7 PROFILE 07/16/2018 CHEM 7 PROFILE 08/10/2018 CHEM 7 PROFILE 07/04/2018 LIVER PROFILE 09/16/2020 LIVER PROFILE 08/10/2018 LIVER PROFILE 07/04/2018 LIVER PROFILE 07/28/2023 LIVER PROFILE 04/17/2019 LIVER PROFILE 07/16/2018 LIVER PROFILE 09/07/2018 LIVER PROFILE 10/02/2020 LIVER PROFILE 01/22/2019 LIVER PROFILE 04/26/2024 LIVER PROFILE 05/17/2019 LIVER PROFILE 02/23/2019 LIVER PROFILE 10/16/2020 LIVER PROFILE 02/08/2019 LIVER PROFILE 08/25/2020 LIVER PROFILE 03/19/2020 LIVER PROFILE 12/18/2020 LIVER PROFILE 03/18/2019 LIVER PROFILE 09/03/2020 LIVER PROFILE 04/05/2023 LIVER PROFILE 04/04/2019 AMMONIA 07/04/2018 CBC w DIFF 07/16/2018 CBC w DIFF 07/04/2018 PROTHROMBIN TIME (PT, INR) 07/16/2018 PROTHROMBIN TIME (PT, INR) 07/04/2018 Insurance Providers Payer Name Payer Address Payer Phone Subscriber Number Group Number Insured Name Patient Relationship to Insured Coverage Start Date Coverage End Date MEDICARE OF [place] [address] [place] [address] [id number] GIOVANY HER Self - patient is the insured MED[employer] ATT[employer] CLAIMS [address] [place] [phone] [id number] GIOVANY HER Self - patient is the insured Medical (General) History Medical History History ICD Code Autoimmune hepatitis [...] almost normalization of her liver enzymes. 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 Blair--she is resuming Coumadin as of September 07, 2018--her Coumadin had initially been stopped when she presented with the autoimmune hepatitis with associated jaundice and coagulopathy HTN NIDDM--since being on predniosone Urinary incontinence She describes a connective tissue disease followed by the operations chief at [facility]. Gallstones noted during her 2018 workup for the autoimmune hepatitis. MRCP was negative and the stones have remained asymptomatiic. She is aware of the diagnosis of gallstones Surgical History Surgery Date(Month/Year) Spinal fusion 1959 Left knee replacement 2006 Right knee replacement 2006 Left hip replacement 2010 Lumpectomy breast cancer on the left--XR T 2002 Tonsillectomy age 5
== END 2025-04-01 13:27 | disposition home or self-care (01) ==
LOC: HO.HOS 12:26
PROVIDERS: PCP Internal Medicine Geriatric Medicine
DX: G56.03 Carpal tunnel syndrome, bilateral upper limbs (principal)
CPT/HCPCS: 99204

== ENCOUNTER → 2025-04-01 12:26 | Outpatient (BNVA) | payer MEDICARE, SELFPAY | PROVIDERS: PCP Internal Medicine Geriatric Medicine | DX: G56.03 Carpal tunnel syndrome, bilateral upper limbs (principal); R20.2 Paresthesia of skin | CPT/HCPCS: 99202 ==

== ENCOUNTER 2025-04-03 11:45 | Outpatient (REF) | payer MEDICARE, SELFPAY ==
[2025-04-03 11:59] LABS: MANUAL DIFF FLAG NO
--- OUTSIDE RECORDS SUMMARY | 2025-04-03 12:32 | XMS_ITS | Patient Health Record ---
Author Organization [facility] Address [address] [place] [address] Care Team Providers Care Inserting Operator Name Role Phone Frederick Sapp Primary Care Provider Unavailab Jose Lemos Unavailable [phone] TONI GODDARD Unavailable Unavailable Allergies Allergen (clinical [...] Panel Reviewed date:06/25/2024 07:31:42 AM Interpretation: Performing Lab:[facility], [address] [place] [phone] Notes/Report: Bilirubin Total 1.0 0.0-1.0 mg/dL Bilirubin Direct 0.3 0.0-0.5 mg/dL Aspartate Amino Transferase 22 5-31 U/L Alanine Aminotransferase 15 0-31 U/L Total Protein 5.9 6.5-8.0 g/dL Albumin Level 3.8 3.5-5.0 g/dL Alkaline Phosphatase 80 39-117 U/L Liver Panel Reviewed date:11/29/2024 07:32:46 AM Interpretation: Performing Lab:[facility], [address] [place] [phone] Notes/Report: Bilirubin Total 1.1 0.0-1.0 mg/dL Bilirubin [...] Problem Status W/U Status Risk Notes Problem 150354481 Autoimmune hepatitis (K75.4) Active confirmed Problem 768558411 Elevated liver enzymes (R74.8) Active confirmed Problem Elevated liver enzymes level (638867587) Elevated liver function tests (R94.5) Active confirmed Problem 96644805 Hypertension, unspecified type (I10) Active confirmed Encounters Encounter Location Date Provider Diagnosis [facility] [address] [place] [phone] 04/26/2024 Jose Salgado Autoimmune hepatitis K75.4 Assessments [...] Date MEDICARE OF [place] [address] [facility] [place] [address] [phone] [id number] GIOVANY HER Self - patient is the insured MED[employer] ATTN CLAIMS [address] [place] [address] [id number] GIOVANY HER Self - patient is the [...] almost normalization of her liver enzymes. 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 Blair--she is resuming Coumadin as of September 07, 2018--her Coumadin had initially been stopped when she presented with the autoimmune hepatitis with associated jaundice and coagulopathy HTN NIDDM--since being on predniosone Urinary incontinence She describes a connective tissue disease followed by the [facility] sewer at [facility] [place] [place]. Gallstones noted during her 2018 workup [...]
[2025-04-03 12:34] LABS: Basophils Absolute Auto 0.1 X10*3/uL (0.0-0.2); Basophils Percent Auto 1.9 % (0-2); Eosinophils Absolute Auto 0.2 X10*3/uL (0.0-0.4); Eosinophils Percent Auto 3.6 % (0-4); Hematocrit 41.4 % (37.0-47.0); Hemoglobin 13.9 g/dl (12.0-16.0); Imm Gran Abs Auto 0.03 X10*3/uL (0.00-0.03); Imm Gran Pct Auto 0.6 % (0.0-0.4); Lymphocytes Absolute Auto 1.5 X10*3/uL (1.2-4.9); Lymphocytes Percent Auto 30.5 % (20-40); Mean Corpuscular HGB Conc 33.6 g/dl (31.0-35.0); Mean Corpuscular Hemoglobin 30.5 pg (27.0-33.0); Mean Platelet Volume 10.9 fL (9.4-12.3); Monocytes Absolute Auto 0.5 X10*3/uL (0.1-1.2); Monocytes Percent Auto 10.7 % (2-11); Neutrophils Absolute Auto 2.5 x10*3/uL (2.0-8.3); Neutrophils Percent Auto 52.7 % (45-73); Platelet Count 170 X10*3/uL (160-400); Red Blood Count 4.55 X10*6/uL (4.20-5.50); Red Cell Distribution Width 14.7 % (11.0-16.0); White Blood Count 4.8 X10*3/uL (4.8-10.8)
[2025-04-03 12:42] LABS: Estimated Average Glucose 100 mg/dL; Hemoglobin A1c % 5.1 % (<6.0); Total Hemoglobin (HGBA1C) 3659.5746 umol/L
[2025-04-03 15:12] LABS: Vitamin D 25-OH Total 50.2 ng/mL (>30)
[2025-04-03 15:25] LABS: Anion Gap 12 (12-20)
[2025-04-03 15:30] LABS: Alanine Aminotransferase 22 U/L (0-31); Albumin Level 3.8 g/dL (3.5-5.0); Alkaline Phosphatase 74 U/L (39-117); Aspartate Amino Transferase 27 U/L (5-31); Bilirubin Total 0.5 mg/dL (0.0-1.0); Blood Urea Nitrogen 17 mg/dL (9-16); Calcium 8.7 mg/dL (8.4-10.2); Carbon Dioxide 22 mmol/L (22-29); Chloride 114 mmol/L (96-108); Cholesterol 152 mg/dL (<200); Estimated Glomerular Filt Rate 60; Glucose Random 99 mg/dL (60-115); HDL Cholesterol 57 mg/dL (>40); LDL Cholesterol Calculated 80 mg/dL (<100); Potassium 4.1 mmol/L (3.3-5.1); Sodium 144 mmol/L (135-145); Total Protein 6.2 g/dL (6.5-8.0); Triglycerides 77 mg/dL (<150)
== END 2025-04-03 11:46 | disposition home or self-care (01) ==
LOC: HO.LAB 11:45
PROVIDERS: PCP Internal Medicine Geriatric Medicine; Visit Provider Internal Medicine Geriatric Medicine
DX: Z76.89 Persons encountering health services in other specified circumstances (principal); M85.859 Other specified disorders of bone density and structure, unspecified thigh; Z13.1 Encounter for screening for diabetes mellitus; Z13.220 Encounter for screening for lipoid disorders
CPT/HCPCS: 36415; 80053; 80061; 82306; 83036; 85025

== ENCOUNTER → 2025-05-14 14:13 | Outpatient (BNV) | payer MEDICARE, SELFPAY | PROVIDERS: PCP Internal Medicine Geriatric Medicine; Referring Provider Internal Medicine Geriatric Medicine; Visit Provider Internal Medicine Medical Oncology | DX: D68.61 Antiphospholipid syndrome (principal) | CPT/HCPCS: 99204 ==

== ENCOUNTER 2025-05-15 06:46 | Day surgery (SDC) | payer MEDICARE, SELFPAY ==
--- OUTSIDE RECORDS SUMMARY | 2025-04-09 14:55 | XMS_ITS | Patient Health Record ---
Author Organization [facility] Address [address] [place] [address] Care Team Providers Care Bridal Service Sales And Management Name Role Phone Frederick Sapp Primary Care Provider Unavailab Jose Lemos Unavailable [phone] TONI GODDARD Unavailable Unavailable Allergies Allergen (clinical [...] Panel Reviewed date:06/25/2024 07:31:42 AM Interpretation: Performing Lab:[facility], [address] [place] [phone] Notes/Report: Bilirubin Total 1.0 0.0-1.0 mg/dL Bilirubin Direct 0.3 0.0-0.5 mg/dL Aspartate Amino Transferase 22 5-31 U/L Alanine Aminotransferase 15 0-31 U/L Total Protein 5.9 6.5-8.0 g/dL Albumin Level 3.8 3.5-5.0 g/dL Alkaline Phosphatase 80 39-117 U/L Liver Panel Reviewed date:11/29/2024 07:32:46 AM Interpretation: Performing Lab:[facility], [address] [place] [phone] Notes/Report: Bilirubin Total 1.1 0.0-1.0 mg/dL Bilirubin [...] Problem Status W/U Status Risk Notes Problem 624206828 Autoimmune hepatitis (K75.4) Active confirmed Problem 631335846 Elevated liver enzymes (R74.8) Active confirmed Problem Elevated liver enzymes level (930980062) Elevated liver function tests (R94.5) Active confirmed Problem 87039919 Hypertension, unspecified type (I10) Active confirmed Encounters Encounter Location Date Provider Diagnosis [facility] [address] [place] [phone] 04/26/2024 Jose Salgado Autoimmune hepatitis K75.4 Assessments [...] Date MED[place]ARE OF [place] [address] [place] [address] [id number] GIOVANY HER Self - patient is the insured MED[employer] ATTN CLAIMS [address] [place] [address] [id number] GIOVANY HER Self - patient is the [...] almost normalization of her liver enzymes. 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 Blair--she is resuming Coumadin as of September 07, 2018--her Coumadin had initially been stopped when she presented with the autoimmune hepatitis with associated jaundice and coagulopathy HTN NIDDM--since being on predniosone Urinary incontinence She describes a connective tissue disease followed by the homemaker companion at [facility]. Gallstones noted during her 2018 workup for [...]
[2025-05-15 07:25] VITALS: BMI 29.4
[2025-05-15 07:27] VITALS: BP 149/59; PULSE 63; RESP 18; TEMP 36.7; O2SAT 98
--- NOTE | 2025-05-15 08:35 | P.OP_ITS ---
Operative Note Operative Note Date of Service: 05/15/25 Narrative: Preop diagnosis: 1. Left Carpal tunnel syndrome Postop diagnosis: same Procedure: 1. Left Carpal tunnel release Surgeon: Araceli Taveras MD Excelsior Picker: None Anesthesia: local block using 1% lidocaine with epinephrine Findings: Thickened transverse carpal ligament. EBL: Less than 5 mL Specimens: None Complications: None Disposition: Brought to recovery room in stable condition Plan: Follow-up for 10-14 days for wound check and suture removal Indications: The patient is 84 years old, with left carpal tunnel syndrome that has been unresponsive to nonoperative management. The risks and benefits of operative treatment including but not limited to risk of damage to blood vessels, nerves, tendons, infection, persistent pain, persistent symptoms, or possible need for additional surgery were discussed with the patient and the patient wishes to proceed with surgery. Procedure: Once consent was obtained a local block was performed using a combination of 1% lidocaine with epinephrine. The patient was then brought back to the operating suite and placed on the operative table in supine position. The left upper extremity was prepped and draped in a standard surgical fashion. Once assured that we had a good block, a 2.0 cm longitudinal incision was made centered over the carpal tunnel. The incision was made through the skin to the subcutaneous tissues using a #15 blade. Dissection was made down to the level of the transverse carpal ligament with care being taken to protect the palmar cutaneous nerve. Once the transverse carpal ligament was clearly visualized, a longitudinal incision was made in the transverse carpal ligament 1st using a #15 blade, then using tenotomy scissors under direct visualization. Care was taken to look for and protect the motor branch of the median nerve when seen in this area. Once satisfied with our carpal tunnel release the wound was copiously irrigated with normal saline and hemostasis was obtained with a brief period of local pressure. The skin edges were reapproximated with some 5.0 nylon suture material and a sterile dressing was applied. The patient appears to have tolerated the procedure well and with no complicatio ns. All digits were well vascularized at the conclusion of the case.
--- NOTE | 2025-05-15 08:35 | MHC.SHP ---
Pre-Procedural Eval Section A - 24 Hr Update-Section A only Date of Service: 05/15/25 The patient is an INPATIENT: No Changes since office visit: No Cold of Flu in the past 2 weeks, No New Medical Problems, No Changes in Medication and No Patient answered all questions The patient has been examined within 24 hours of the surgical procedure. The History & Physical has been completed within 30 days and I have reviewed it.: Yes Section B - Complete if H&P > 30 days Chief Complaint: Carpal tunnel syndrome, left upper limb Allergies: Allergies Allergy/AdvReac Type Severity Reaction Status Date / Time cephalexin (CEPHALEXIN) Allergy Severe ANAPHYLAXIS Verified 05/15/25 07:28 morphine (MORPHINE) Allergy Intermediate RASHES AND Verified 05/15/25 07:28 HIVES, hives benzocaine Allergy Unknown Unknown Verified 05/15/25 07:28 clindamycin (CLINDAMYCIN) Allergy Unknown ANAPHYLAXIS Verified 05/15/25 07:28 gabapentin (GABAPENTIN) Allergy Unknown HIVES Verified 05/15/25 07:28 gluten (GLUTEN) Allergy Unknown NAUSEA & Verified 05/15/25 07:28 VOMITING oxycodone (OXYCODONE) Allergy Unknown RASH, hives Verified 05/15/25 07:28 povidone-iodine (From Allergy Unknown RASH Verified 05/15/25 07:28 BETADINE) soap (From BETADINE) Allergy Unknown UNKNOWN Verified 05/15/25 07:28 Clindamycin HCl Allergy Unknown anaphylaxis Uncoded 05/15/25 07:28 Gluten Allergy Unknown rashes,hive Uncoded 05/15/25 07:28 s,diarrhea Plan Diagnosis/Plan: Unchanged I have reviewed the history and physical and performed a pertinent physical examination on my patient. No changes have occurred unless specified. Time Spent With Patient Time: Total time managing care of this patient today ____ minutes.
--- NOTE | 2025-05-15 09:30 | PC.NURSE ---
pharmacy did not receive orders from Dr. Taveras office to mix lidocaine injections per pharmacy. Medications pulled from PACU pixus with Dr. Taveras.
[2025-05-15 11:23] VITALS: BP 154/77; PULSE 77; RESP 18; O2SAT 98
== END 2025-05-15 11:24 | disposition home or self-care (01) ==
PROVIDERS: PCP Internal Medicine Geriatric Medicine; Visit Provider Orthopaedic Surgery
PROC: (CPT 64721; principal; 2025-05-15 08:30)
DX: G56.02 Carpal tunnel syndrome, left upper limb (principal); R20.2 Paresthesia of skin; M06.9 Rheumatoid arthritis, unspecified; Z86.73 Personal history of transient ischemic attack (TIA), and cerebral infarction without residual deficits; Z85.3 Personal history of malignant neoplasm of breast; Z79.01 Long term (current) use of anticoagulants; Z88.1 Allergy status to other antibiotic agents; Z88.5 Allergy status to narcotic agent; Z88.8 Allergy status to other drugs, medicaments and biological substances; Z98.890 Other specified postprocedural states; Z98.1 Arthrodesis status; Z87.891 Personal history of nicotine dependence
CPT/HCPCS: 64721; J2004

== ENCOUNTER → 2025-05-15 06:46 | Outpatient (BNV) | payer MEDICARE, SELFPAY | PROVIDERS: PCP Internal Medicine Geriatric Medicine; Visit Provider Orthopaedic Surgery | DX: G56.02 Carpal tunnel syndrome, left upper limb (principal) | CPT/HCPCS: 64721 ==

== ENCOUNTER 2025-05-29 10:04 | Outpatient (AMB) | payer MEDICARE, SELFPAY ==
--- NOTE | 2025-05-29 10:28 | A.OFFVIS_ITS ---
Vital Signs 05/29/25 10:32 Height 5 ft 7 in Weight 188 lb BMI 29.4 Intake Visit Reasons: PO LT CTR 05/15/25 AR Intake Note: Ana Laura 85 yr old female presents today for her P.O visit for her left carpal tunnel release done with Dr aTveras on 05/15/25. States her symptoms have improve but still has some numbness. Allergies cephalexin (CEPHALEXIN) Allergy (Severe, Verified 05/29/25 10:34) ANAPHYLAXIS morphine (MORPHINE) Allergy (Intermediate, Verified 05/29/25 10:34) RASHES AND HIVES, hives benzocaine Allergy (Unknown, Verified 05/29/25 10:34) Unknown clindamycin (CLINDAMYCIN) Allergy (Unknown, Verified 05/29/25 10:34) ANAPHYLAXIS gabapentin (GABAPENTIN) Allergy (Unknown, Verified 05/29/25 10:34) HIVES gluten (GLUTEN) Allergy (Unknown, Verified 05/29/25 10:34) NAUSEA & VOMITING oxycodone (OXYCODONE) Allergy (Unknown, Verified 05/29/25 10:34) RASH, hives povidone-iodine (From BETADINE) Allergy (Unknown, Verified 05/29/25 10:34) RASH soap (From BETADINE) Allergy (Unknown, Verified 05/29/25 10:34) UNKNOWN Clindamycin HCl Allergy (Unknown, Uncoded 05/29/25 10:34) anaphylaxis Gluten Allergy (Unknown, Uncoded 05/29/25 10:34) rashes,hives,diarrhea HPI HPI PO LT CTR 05/15/25 AR: Details: Ana Laura is an 85 year old right hand dominant woman who presents S/P left carpal tunnel release, DOS: 05/15/25. She says she is doing well and her symptoms have somewhat improved, but she still has numbness in the left median nerve distribution. She says her pain has improved, which she is happy about, and she has no trouble sleeping. In regards to her right carpal tunnel, she says her thumb is normal, and she has mild numbness & tingling in her index & middle fingers. Normal sensation in her small fingers bilaterally She says her recovery has been difficult due to not being able to use her rolling walker for ambulation, and she has been struggling to get around using a rolling chair. [facility] Medical History Adult general medical exam Screening for diabetes mellitus Stroke Rheumatoid arthritis Breast cancer HTN (hypertension) Surgical History H/O spinal fusion History of bilateral knee replacement History of hip replacement H/O lumpectomy Family History Father Stented coronary artery Stroke Mother Parkinson disease Social History Household Members: None Housing: House Are you a primary menagerie caretaker to a significant other at home: No Do you presently have visiting nurse or other home services: No Alcohol intake: never Patient Tobacco Use Status: Former Tobacco user Tobacco use type: Cigarette Years Smoked: quit in 1972 e-Cigarette/Vaping Use: Never Used Second Hand Smoke Exposure: No Substance Use Type: Marijuana Advance Directives Date on File: 10/29/22 service: No Current occupational status: retired and disabled Cognitive needs: Yes Hearing needs: No Vision needs: Yes Review of Systems Const All systems reviewed & are unremarkable except as noted in HPI and below Physical Exam Vital Signs: BMI result Body Mass Index 29.4 Const General: no acute distress and alert Orientation/consciousness: patient oriented x3 Neuro General: patient oriented x3 Extrem Other: The patient was alert oriented and in no acute distress. She does seem somewhat unhappy that she is limited in the use of her rolling walker. The incision is healing well with no erythema drainage or evidence of infection. Sutures removed and Steri-Strips applied She can make a fist and extend all her digits Dense numbness in the median nerve distribution on the left. Decreased sensation to the right index & middle fingers, normal sensation to the thumb Normal sensation in the ulnar nerve distribution bilaterally Significant bilateral thenar wasting, no evidence of intrinsic wasting weak APB muscle firing and good finger cross. Cap refill is brisk Nerve Conduction study IMPRESSION: 1. Moderate to severe left and [id number] right median neuropathy across carpal tunnel. 2. Chronic bilateral mid cervical radiculopathy. Vahid Hill MD 05/12/2023 Psych Appearance: grossly normal Affect: Sad affect present Attitude: cooperative Assessment & Plan Assessment & Plan (1) Carpal tunnel syndrome of left wrist: Code(s): G56.02 - Carpal tunnel syndrome, left upper limb Category: Medical (2) Carpal tunnel syndrome of right wrist: Code(s): G56.01 - Carpal tunnel syndrome, right upper limb Category: Medical Plan Assessment & Plan: 1. Left carpal tunnel syndrome, S/P release DOS: 05/15/25 Pre-operatively with dense numbness & thenar wasting Still with dense numbness, with some improvement in her symptoms of pain. The patient appears to be doing well post-operatively, and she is happy with the results of her surgery I educated her about the post-operative course I explained that it may take up to 9 months post-operatively for any sensation to return, if at all I discussed activity modifications, she is to lift nothing heavier than a cellphone for the next 2 weeks She will perform gentle ROM exercises at home She should avoid any underwater activities for the next 5 days She should gently massage about the incision site to reduce the risk of hypersensitivity 2. Right carpal tunnel syndrome, mild-moderate Dense numbness in the index & middle fingers, normal sensation to the thumb, & thenar wasting I educated her about this condition I discussed operative and non-operative treatment options She is hesitant to consider surgery for her right hand as she has found it difficult being limited during recovery for her left side We had a long discussion about the risks of delaying treatment She will consider surgery for her right side, and may follow up in the future to discuss treatment Scribed for Araclei Taveras MD by Don Myles medical management specialist, on 05/29/25 at 10:40 AM, EST. Coding Level of Care Code Global (09790) Diagnoses Carpal tunnel syndrome of left wrist G56.02 Carpal tunnel syndrome of right wrist G56.01
[2025-05-29 10:32] VITALS: BMI 29.4
--- OUTSIDE RECORDS SUMMARY | 2025-05-29 10:52 | XMS_ITS | Encounter Summary ---
Author Organization [facility] Address [address] [address] Phone Care Team Providers Care Mixer Wet Pour Name Role Phone Frederick Sapp Primary Care Provider + Abhi Shukla DO Unavailable [phone] Encounter Details Date Type Department Care Team (Late st Contact Info) Description 12/25/2019 Ancillary Orders [facility] Rheumatology [address] [place] [address] Carlos Napoles PA [address] [facility] [address]_[place] [address] [email or web address] Chronic pain in right foot Social History Tobacco Use Types Packs/Day Years Used Date Smoking Tobacco: Former Cigarettes 2 10 963 - 1972 Smokeless Tobacco: Never Alcohol Use Standard Drinks/Week Comments Not Currently 0 (1 standard drink = 0.6 oz pur e alcohol) Comments Unknown Sex and Gender Information Value Date Recorded Sex Assigned at Female 08/22/2023 10:24 PM EDT Legal Sex Female 10:12 PM EDT Gender Identity Female 08/22/2023 10:24 PM EDT Sexual Orientation Straight 08/22/2023 10 :24 PM EDT documented as of this encounter Plan of Treatment Not on file documented as of this encounter Results * XR FOOT 3 OR MORE VIEWS (BILATERAL) (12/25/2019 2:53 PM EST) Anatomical Region Laterality Modality Foot Left Radiographic Mildred ging 12/25/2019 5:31 PM EST Impressions 12/25/2019 5:34 PM EST Chronic findings as above. No acute fracture or dislocation. POS [id number] Narrative 12/25/2019 5:34 PM EST XR FOOT 3 OR MORE VIEWS (BILATERAL) CLINICAL HISTORY: *Foot pain, initial exam COMPARISON: None FINDINGS: Left foot: There is no acute fracture or dislocation. No focal periosteal reaction or osteopenia. Degenerative changes are present at the second and third tarsometatarsal joint spaces as well as the navicular/medial cuneiform joint space. Prominent spurring of the dorsal midfoot. Plantar and calcaneal spurring. The toes are flexed. No acute soft tissue abnormality. Right foot: There is no acute fracture. No focal periosteal reaction or osteopenia. Degenerative changes of the navicular-medial cuneiform joint space are present. Degenerative changes are also present at the second and third tarsometatarsal joint spaces. Dorsal midfoot spurring. The toes are flexed. No acute soft tissue abnormality. Procedure Note Kenrick Black MD - 12/25/2019 XR FOOT 3 OR MORE VIEWS (BILATERAL) CLINICAL HISTORY: *Foot pain, initial exam COMPARISON: None FINDINGS: Left foot: There is no acute fracture or dislocation. No focal periostealreaction or osteopenia. Degenerative changes are present at the second andthird tarsometatarsal joint spaces as well as the navicular/medialcuneiform joint space. Prominent spurring of the dorsal midfoot. Plantarand calcaneal spurring. The toes are flexed. No acute soft tissue abnormality. Right foot: There is no acute fracture. No focal periosteal reaction orosteopenia. Degenerative changes of the navicular-medial cuneiform jointspace are present. Degenerative changes are also present at the second andthird tarsometatarsal joint spaces. Dorsal midfoot spurring. The toes are flexed. No acute soft tissue abnormality. IMPRESSION: Chronic findings as above. No acute fracture or dislocation. POS [id number] Carlos DAMON IMG XR LOWER EXTREMITY Final Result documented in this encounter Visit Diagnoses Diagnosis Chronic pain in left foot Chronic pain in right foot Chronic pain in right foot documented in this encounter Care Teams Mixer Wet Pour Relationship Specialty Start Date End Date Frederick Sapp PA [address] [place] [address] PCP - General 11/12/19 Abhi Shukla DO [address] [place] [address] Family Medicine 11/16/19 documented as of this encounter Additional Source Comments The information contained in this document represents components of the legal health record. It is not the complete legal health record.[facility]
--- OUTSIDE RECORDS SUMMARY | 2025-05-29 10:53 | XMS_ITS | Patient Health Record ---
Author Organization [facility] Address [address] [place] [address] Care Team Providers Care Dispute Resolution Analyst Name Role Phone Frederick Sapp Primary Care Provider Unavailab Jose Lemos Unavailable [phone] TONI GODDARD Unavailable Unavailable Allergies Allergen (clinical drug ingredient) Drug/Non Drug Allergy documented on EMR Reaction Allergy Type Onset Date Status gabapentin Neurontin hives Drug Allergy Active morphine Morphine Sulfate rash Drug Allergy Active Iodine Unknown Drug Allergy Active clindamycin Clindamycin HCl Unknown Drug Allergy Active cephalexin Cephalexin Unknown Drug Allergy Activ e povidone-iodine Betadine Unknown Drug Allergy A ctive Gluten gluten (uncoded) Unknown Allergy Act maryan Results Component Value Reference Range Notes Liver Panel Reviewed date:06/25/2024 07:31:42 AM Interpretation: Performing Lab:[facility], [address] [place] [id number] Notes/Report: Bilirubin Total 1.0 0.0-1.0 mg/dL Bilirubin Direct 0.3 0.0-0.5 mg/dL Aspartate Amino Transferase 22 5-31 U/L Alanine Aminotransferase 15 0-31 U/L Total Protein 5.9 6.5-8.0 g/dL Albumin Level 3.8 3.5-5.0 g/dL Alkaline Phosphatase 80 39-117 U/L Liver Panel Reviewed date:11/29/2024 07:32:46 AM Interpretation: Performing Lab:[facility], [address] [place] [phone] Notes/Report: Bilirubin Total 1.1 0.0-1.0 mg/dL Bilirubin Direct 0.4 0.0-0.5 mg/dL Aspartate Amino Transferase 34 5-31 U/L Alanine Aminotransferase 23 0-31 U/L Total Protein 6.0 6.5-8.0 g/dL Albumin Level 3.7 3.5-5.0 g/dL Alkaline Phosphatase 86 39-117 U/L Reason For Referral No Information Medications Medication SIG (Take, Route, Fr equency, Duration) Notes Start Date End Date Status Vitamin D3 Active Zinc Active predniSONE 5 MG TAKE 1 TABLET BY LIANA TH EVERY DAY for 30 Active coumadin 1 tab Oral as directed Active predniSONE 5 MG 1 tablet Orally Once a day for 30 day(s) 09/11/2022 Active Magnesium 1 capsule with a lance l Orally Once a day Active Dulcolax 5 MG 1 tablet as needed O rally Once a day PRN Active predniSONE 2.5 MG 1 tablet(2.5mg) alte rnating with 2 tablets(5mg) every day Orally Once a day for 90 days Active Calcium Active Immunizations Vaccine Route Administration [...] Problem Status W/U Status Risk Notes Problem 375187900 Autoimmune hepatitis (K75.4) Active confirmed Problem 327861207 Elevated liver enzymes (R74.8) Active confirmed Problem Elevated liver enzymes level (365827332) Elevated liver function tests (R94.5) Active confirmed Problem 79983766 Hypertension, unspecified type (I10) Active confirmed Encounters Encounter Location Date Provider Diagnosis [facility] [address] [place] [phone] 04/28/2025 Jose Salgado Autoimmune hepatitis K75.4 Assessments Encounter Date Diagnosis (ICD Code) Assessment Notes Treatment Notes Treatment Clinical Notes Section Notes 04/28/2025 Autoimmune hepatitis (ICD-10 - K75.4) Plan Of Treatment Pending Test Test Name Order Date CHEM 7 PROFILE 08/10/2018 CHEM 7 PROFILE 07/04/2018 CHEM 7 PROFILE 07/16/2018 LIVER PROFILE 04/26/2024 LIVER PROFILE 05/17/2019 LIVER PROFILE 02/23/2019 LIVER PROFILE 10/16/2020 LIVER PROFILE 02/08/2019 LIVER PROFILE 04/28/2025 LIVER PROFILE 08/25/2020 LIVER PROFILE 03/19/2020 LIVER PROFILE 12/18/2020 LIVER PROFILE 03/18/2019 LIVER PROFILE 09/03/2020 LIVER PROFILE 04/05/2023 LIVER PROFILE 04/04/2019 LIVER PROFILE 09/16/2020 LIVER PROFILE 08/10/2018 LIVER PROFILE 07/04/2018 LIVER PROFILE 07/28/2023 LIVER PROFILE 04/17/2019 LIVER PROFILE 07/16/2018 LIVER PROFILE 09/07/2018 LIVER PROFILE 10/02/2020 LIVER PROFILE 01/22/2019 AMMONIA 07/04/2018 CBC w DIFF 07/16/2018 CBC w DIFF 07/04/2018 PROTHROMBIN TIME (PT, INR) 07/16/2018 PROTHROMBIN TIME (PT, INR) 07/04/2018 Insurance Providers Payer Name Payer Address Payer Phone Subscriber Number Group Number Insured Name Patient Relationship to Insured Coverage Start Date Coverage End Date MEDICARE OF [place] [address] [facility] [address] [phone] [id number] GIOVANY HER Self - patient is the insured MED[employer] ATTN CLAIMS [address] [place] [address] [id number] GIOVANY HER Self - patient is the [...] almost normalization of her liver enzymes. 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 Gallstones noted during her 2018 workup for [...]
== END 2025-05-29 10:59 | disposition home or self-care (01) ==
LOC: HO.HOS 10:05
PROVIDERS: PCP Internal Medicine Geriatric Medicine; Visit Provider Orthopaedic Surgery
DX: G56.03 Carpal tunnel syndrome, bilateral upper limbs (principal)
CPT/HCPCS: 99024

== ENCOUNTER → 2025-05-29 10:04 | Outpatient (BNVA) | payer MEDICARE, SELFPAY | PROVIDERS: PCP Internal Medicine Geriatric Medicine; Visit Provider Orthopaedic Surgery | DX: G57.02 Lesion of sciatic nerve, left lower limb (principal); Z98.890 Other specified postprocedural states | CPT/HCPCS: 99212 ==

== ENCOUNTER 2025-07-25 09:56 | Outpatient (AMB) | payer MEDICARE, SELFPAY ==
[2025-07-25 10:15] VITALS: BP 126/60; PULSE 69; BMI 29.1
--- NOTE | 2025-07-25 10:15 | MHC.OFFVIS ---
Vital Signs 07/25/25 10:15 Height 5 ft 7 in Weight 186 lb BMI 29.1 BP 126/60 Blood Pressure Location Lt brachial Position Sitting Pulse 69 Pulse Source Monitor Intake Visit Reasons: 1 yr fu Intake Note: 1 year f/u Accompanied by: Other Relationship Allergies cephalexin (CEPHALEXIN) Allergy (Severe, Verified 07/25/25 10:20) ANAPHYLAXIS morphine (MORPHINE) Allergy (Intermediate, Verified 07/25/25 10:20) RASHES AND HIVES, hives benzocaine Allergy (Unknown, Verified 07/25/25 10:20) Unknown clindamycin (CLINDAMYCIN) Allergy (Unknown, Verified 07/25/25 10:20) ANAPHYLAXIS gabapentin (GABAPENTIN) Allergy (Unknown, Verified 07/25/25 10:20) HIVES gluten (GLUTEN) Allergy (Unknown, Verified 07/25/25 10:20) NAUSEA & VOMITING oxycodone (OXYCODONE) Allergy (Unknown, Verified 07/25/25 10:20) RASH, hives povidone-iodine (From BETADINE) Allergy (Unknown, Verified 07/25/25 10:20) RASH soap (From BETADINE) Allergy (Unknown, Verified 07/25/25 10:20) UNKNOWN Clindamycin HCl Allergy (Unknown, Uncoded 05/29/25 10:34) anaphylaxis Gluten Allergy (Unknown, Uncoded 05/29/25 10:34) rashes,hives,diarrhea Medication List - Last Reconciled 07/25/25 by Darien Nicole MD cholecalciferol (vitamin D3) (Vitamin D3) 25 mcg PO DAILY cider [id number] 300-8.3 mg 1 tab PO DAILY docusate sodium 50 mg PO DAILY PRN magnesium oxide 250 mg PO DAILY metoprolol succinate ER 25 mg PO DAILY multivitamin 1 tab PO DAILY prothrombin time test strips (Coaguchek XS strips) As directed warfarin 1 tab PO BEDTIME HPI Comments Details: Ana Laura comes for follow up. Patient in not having any cardiac symptoms. She denies any prolong palpitations or skipped heart beats. Denies any chest pain or shortness of breath. No CHF symptoms. Blood pressure is well optimized. [facility] Medical History Adult general medical exam Screening for diabetes mellitus Stroke Rheumatoid arthritis Breast cancer HTN (hypertension) Surgical History H/O spinal fusion History of bilateral knee replacement History of hip replacement H/O lumpectomy Family History Father Stented coronary artery Stroke Mother Parkinson disease Social History Household Members: None Housing: House Are you a primary career services coordinator to a significant other at home: No Do you presently have visiting nurse or other home services: No Alcohol intake: never Patient Tobacco Use Status: Former Tobacco user Tobacco use type: Cigarette Years Smoked: quit in 1972 e-Cigarette/Vaping Use: Never Used Second Hand Smoke Exposure: No Substance Use Type: Marijuana Advance Directives Date on File: 10/29/22 service: No Current occupational status: retired and disabled Cognitive needs: Yes Hearing needs: No Vision needs: Yes Review of Systems Const Denies daytime sleepiness, Denies difficulty sleeping, Denies snoring, Denies stops breathing during sleep and Denies weakness Card Denies chest pain, Denies rapid heart rate, Denies irregular heart rhythm, Denies claudication, Denies leg edema, Denies lightheadedness, Denies palpitations, Denies dyspnea, Denies dyspnea on exertion, Denies orthopnea, Denies paroxysmal nocturnal dyspnea and Denies slow heart rate Resp Denies cough, Denies dyspnea, Denies dyspnea on exertion and Denies snoring GI Reports no additional complaints, Denies hematochezia, Denies change in stool character and Denies dyspepsia Musc Denies abnormal gait, Denies muscle weakness and Denies numbness Neuro Denies abnormal gait, Denies numbness and Denies weakness Endo Denies palpitations Physical Exam Vital Signs: Last Vital Signs Pulse 69 07/25/25 10:15 BP 126/60 07/25/25 10:15 BMI result Body Mass Index 29.1 Const General: cooperative, comfortable, no acute distress and alert Nutritional Appearance: obese Orientation/consciousness: patient oriented x3 Limitations: ambulation with walker Neck Neck: Yes trachea midline, Yes supple and Yes no JVD Resp Effort & Inspection: normal respiratory effort Auscultation: clear to auscultation bilaterally Cardio Jugular venous distension: no JVD Palpation: normal PMI Rate: regular rate Rhythm: regular rhythm Heart sounds: S1 normal heart sound present, S2 normal heart sound present, no click, no gallops and Murmur heart sound present systolic early, decrescendo and crescendo Skin General skin exam: no rashes or lesions noted and ecchymosis Neuro General: patient oriented x3 and no focal motor deficits Extrem General: Yes no clubbing, cyanosis or edema Office Procedures EKG Details: NST with non specific ST abnormality 62428-Etfawvlyxtnsinetr, Complete Assessment & Plan Assessment & Plan (1) Aortic stenosis: Code(s): I35.0 - Nonrheumatic aortic (valve) stenosis Category: Medical Plan: Aortic stenosis clinically appears to be mild. No symptoms were reported. Continue aspirin. Recommend an echo in near future. Continue aggressive risk factor modifications. Target LDL less than 100 mg /dl. BP is optimized. No surgical interventions required. (2) SVT (supraventricular tachycardia): Code(s): I47.10 - Supraventricular tachycardia, unspecified Category: Medical Plan: Cardiac arrhthmias currently supressed on metoprolol therapy. Avoidance of stimulants was discussed. Stress mitigation strategies were discussed. Advise to call me with worsening symptoms. Will follow up in 1 year, sooner prn. Thank you for allowing me to partake in her care Orders: Orders CA echo transthoracic complete Today I35.0 - Nonrheumatic aortic (valve) stenosis Coding Level of Care Code Est Pt Level 4 (48910) Complex EM visit Add On G2211 Diagnoses Aortic stenosis I35.0 SVT (supraventricular tachycardia) I47.10 CPT Codes EKG - CPT: 99870-Seychprwblcezllnj, Complete ([id number])
--- OUTSIDE RECORDS SUMMARY | 2025-07-25 11:58 | XMS_ITS | Data Portability ---
Author Organization [place] - Lamine Castillo [facility], [facility] Address [address] [place] [address] Assessment Encounter Date Assessment Date Assessment LastModified by Organization Details LastModified Time 02/01/2024 02/01/2024 Assessment: Bilateral carpal tunnel syndrome, initial evaluation Plan: Pathophysiology of this problem has been reviewed. Treatment options have been reviewed including nighttime bracing, cortisone injections, surgical release. She has elected to try the cortisone injections for temporary relief of her symptoms and will likely plan for left carpal tunnel release. Follow-up as scheduled to assess her response to these injections and possibly plan for left carpal tunnel release. vineet Not available 02/01/2024 16:42:23 04/04/2024 04/04/2024 Assessment: Bilateral carpal tunnel syndrome, Left worse than right Plan: She has been bracing, and the cortisone injections provided minimal relief. She is ready to proceed with L carpal tunnel release surgery. Surgical consents obtained today, post surgical recovery reviewed. She would like to try a platform walker for the left side to use during recovery after carpal tunnel surgery when she may have pain with weightbearing on the hand/wrist. rx provided for platform attachment for walker. [email or web address] Not available 04/04/2024 14:25:29 Plan of Treatment Reminders Order Date Submit Date Provider Last Modified By Organization Details Last Modified Time Details Appointments None record ed. Lab None record ed. Referral None record ed. Procedures None record ed. Surgeries None record ed. Imaging None record ed. Medication Orders None record ed. Patient TargetsNo targets recorded. Patient InstructionsNo instructions recorded. Reason for Referral None Reported. Procedures Surgical History Date Name Laterality Status Provider Name and Address Organization Details Recorded Time 4 Carpal Tunnel Kenalog 1cc Injection, Bilateral completed Alicia Lemus MD [address] [facility] [address], [place], [address], [facility] 02/01/2024 16:41:34 Imaging Results None recorded. Procedure Notes None recorded. Medical Equipment None Reported. Allergies Allergen ID Allergen Name Allergen Category Reaction Reaction Severity Criticality Documentation Date Start Date Code Code System Note Provider Name and Address Organization Details Recorded Time 473457 wheat gluten extract food Not available Not available Not available 04/04/2024 30341 81 RxNorm KAMERON DEL RIO [facility] 13:05:44 834558 iodine medicatio n Not available Not available Not available 04/04/2024 5933 RxNorm KAMERON [place] R[place] [facility] 13:05:54 Medications Name Sig Start Date Stop Date Status Note LastModified by Organization Details LastModified Time azithromycin 250 mg tablet FOLLOW PACKAGE DIRECTIONS active Not Available Not Available N ot Available prednisone 5 mg tablet TAKE 1 TABLET BY MOUTH EVERY DAY active Not Available Not Available No t Available warfarin 3 mg tablet TAKE 1 TABLET BY MOUTH DAILY active Not Available Not Available Not Available prednisone 2.5 mg tablet active Not Available Not Available Not Available azithromycin 500 mg tablet TAKE 1 TABLET BY MOUTH ONCE DAILY. TAKE 1 TABLET 1 HOUR BEFORE DENTAL PROCEDURE active Not Available Not Available No t Available Vitals Date Recorded Body height Body mass index (BMI) Body weight Provider Name and Address Organization Details Last Updated DateTime 02/01/2024 170.18 cm 39.5 kg/m2 513244.28 g KAMERON DEL RIO [facility] 02/01/2024 15:15:18 Date Recorded Body height Body mass index (BMI) Body weight Provider Name and Address Organization Details Last Updated DateTime 04/04/2024 170.18 cm 33.2 kg/m2 55403.58 g KAMERON DEL RIO [facility] 04/04/2024 13:04:37 Social History None recorded. Functional Status None recorded. Mental Status None recorded. Family History Nothing Reported. Medical History No medical history recorded. Gynecological HistoryNo gynecological history recorded. Obstetrics History GPAL:G 0 P 0 0 0 0 Past Encounters Encounter ID Performer Location Encounter Start Date Encounter Closed Date Diagnosis/Indication Diagnosis SNOMED-CT Code Diagnosis ICD10 Code Diagnosis IMO Codes Diagnosis Note [id number] Alicia garvin MD [facility] [address] [place] [address] 02/01/2024 14:57:50 02/27/2024 11:57:34 Carpal tunnel syndrome of left wrist 1537936480 66189 G56.02 Carpal lenka melchor syndrome of right wrist 9401172042 98717 G56.01 [id number] [facility] [address] [place] [address] 04/04/2024 12:37:08 05/04/2024 10:33:34 Carpal tunnel syndrome of left wrist 2193619773 84081 G56.02 Carpal lenka melchor syndrome of right wrist 0282566852 24877 G56.01 Health Concerns Section Related Observation LastModified by Organization Detai ls LastModified Time None Recorded Concern Status LastModified by Organization Details LastModified Time None Recorded Advance Directives Directive None Recorded Payers Insurance Date Sequence Insurance Name Policy Number Policy Coto Covered Member ID Coto Member ID Guarantor Name 05/04/2024 2 [place] [id number] Ana Laura Lee [id number] Ana Laura Lee 04/04/2024 1 [place] [employer] Ana Laura Lee [id number] Ana Laura Lee Notes Date Note Type Note Provider Name and Address Organization Details Recorded Time 02/01/2024 text/html ROS as noted in the HPI Patient is a pleasant 83-year-old djinp-mxye-updaqu nt female seen today for initial evaluation of bilateral hand numbness left side much worse than right. She has been using a splint for nighttime numbness and a nerve study was performed recently confirming moderate to severe carpal tunnel syndrome on the left and mild to moderate carpal tunnel syndrome on the right. The left side is much more bothersome to her and she has had significant challenges with dropping things. Alicia Lemus MD [address] [place] [address] [address], [place], [address], [facility] 02/07/2024 12:30:37 04/04/2024 text/html ROS as noted in the HPI Patient is a pleasant 83-year-old rrmdl-iyqy-ygmhxw nt female seen today for follow up evaluation of bilateral hand numbness left side much worse than right. She has been using a splint for nighttime numbness and a nerve study was performed previously confirming moderate to severe carpal tunnel syndrome on the left and mild to moderate carpal tunnel syndrome on the right. The left side is much more bothersome to her and she has had significant challenges with dropping things. Bilateral cortisone injections were performed at the initial. She reports minimal response to the injections; right side symptoms are minimal. Alicia Lemus MD [address] [facility] [address], [place], [address], [facility] 04/04/2024 14:25:44 OBGyn Episode No OBEpisode recorded.
--- OUTSIDE RECORDS SUMMARY | 2025-07-25 11:58 | XMS_ITS | Patient Health Record ---
Author Organization [facility] Address [address] [place] [address] Care Team Providers Care Provider Network Manager Name Role Phone Frederick Sapp Primary Care Provider Unavailab Jose Lemos Unavailable [phone] TONI GODDARD Unavailable Unavailable Allergies Allergen (clinical [...] Value Reference Range Notes Liver Panel Reviewed date:11/29/2024 07:32:46 AM Interpretation: Performing Lab:[facility], [address] [place] [id number] Notes/Report: Bilirubin Total 1.1 0.0-1.0 mg/dL Bilirubin [...] Problem Status W/U Status Risk Notes Problem 924666187 Autoimmune hepatitis (K75.4) Active confirmed Problem 702642952 Elevated liver enzymes (R74.8) Active confirmed Problem Elevated liver enzymes level (325743055) Elevated liver function tests (R94.5) Active confirmed Problem 82722509 Hypertension, unspecified type (I10) Active confirmed Encounters Encounter Location Date Provider Diagnosis [facility] [address] [place] [phone] 04/28/2025 Jose Salgado Autoimmune hepatitis K75.4 Assessments [...] Date MEDICARE OF [place] [address] [place] [address] [phone] [id number] GIOVANY HER Self - patient is the insured MED[employer] ATTN CLAIMS [address] [place] [address] [id number] GIOVANY HER Self - patient is the [...] almost normalization of her liver enzymes. 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 Gallstones noted during her 2018 workup for [...]
--- OUTSIDE RECORDS SUMMARY | 2025-07-25 11:58 | XMS_ITS | Encounter Summary ---
Author Organization [facility] Address [address] [address] Phone Care Team Providers Care Air Tucker Name Role Phone Frederick Sapp Primary Care Provider + Abhi Shukla DO Unavailable [phone] Encounter Details Date Type Department Care Team (Late st Contact Info) Description 12/25/2019 Ancillary Orders [facility] Rheumatology [address] [place] [address] Carlos Napoles PA [address] [facility] [address]_[place] [address] [email or web address] Chronic pain in right foot Social History [...] above. No acute fracture or dislocation. POS [id number] Narrative 12/25/2019 5:34 PM EST XR FOOT [...] above. No acute fracture or dislocation. POS [id number] Carlos DAMON IMG XR LOWER EXTREMITY Final Result documented in this encounter Visit Diagnoses Diagnosis Chronic pain in left foot Chronic pain in right foot Chronic pain in right foot documented in this encounter Care Teams Air Tucker Relationship Specialty Start Date End Date Frederick Sapp PA [address] [place] [address] PCP - General 11/12/19 Abhi Shukla DO [address] [place] [address] Family Medicine 11/16/19 documented as of this encounter Additional Source Comments The information contained in this document represents components of the legal health record. It is not the complete legal health record.[facility]
--- OUTSIDE RECORDS SUMMARY | 2025-07-25 11:59 | XMS_ITS | Clinical Summary ---
Author Organization [facility] Address [address] [address] Phone Care Team Providers Care Post Hole Digger Name Role Phone Frederick Sapp Primary Care Provider + Abhi Shukla DO Unavailable Allergies Active Allergy Reactions Criticality Noted Date Comments Povidone-Iodine Hives,Rash Low 12/25/2019 Cephalexin Anaphylaxis High 12/25/2019 Clindamycin Hcl Anaphylaxis High 12/25/2019 Gabapentin Hives,Rash Low 12/25/2019 Gluten Protein Rash Low 12/25/2019 Iodine Hives,Rash Low 12/25/2019 Morphine Hives,Rash Low 12/25/2019 Oxycodone Hives,Rash Low 12/25/2019 Medications warfarin (COUMADIN) 3 MG tablet Take 3 mg by mouth daily. Active predniSONE (DELTASONE) 5 MG tablet Take 5 mg by mouth daily. Alternating with 2.5 mg every other day Active docusate sodium (COLACE) 100 MG capsule Take 200 mg by mouth as needed. Active calcium-magnesi um-zinc Tab Take by mouth. With Vitamin D3 Active TURMERIC ORAL Gummies Active MULTIVITAMIN ORAL Diabetic Multivitamin Active APPLE CIDER VINEGAR ORAL Gummies Active Medication-Free Text CBD/THC Gummies (1) 5mg Active cholecalciferol , vitamin D3, (VITAMIN D3 ORAL) With vitamin b-12, Gummies Active cinnamon bark (CINNAMON ORAL) Take by mouth. Gummie Active ARNICA TP Apply topically. Max Release Carmen Salve Arnica Gel Active predniSONE (DELTASONE) 2.5 MG tablet Take 1 tablet by mouth every other day. 3 Active vitamins A,C,E-zinc-harshil er (PRESERVISION AREDS) 4,296 mcg-226 mg-90 mg Cap Take 1 capsule by mouth 2 (two) times a day with meals. Active Active Problems Problem Noted Date Diagnosed Date Positive ISAIAH (antinuclear antibody) 06/24/2023 Overview (08/24/2023): 1:640 ho (2019); patient states lab results from 04/2022 (ISAIAH 1:80) are not hers ENAs neg 05/2023 Assessment & Plan (08/24/2023 9:29 AM EDT): High titer ISAIAH almost certainly reflects established dx of autoimmune hepatitis rather than rheumatologic dx of connective tissue disease; no current indication for further rheum-specific w/u Assessment & Plan (06/24/2023 1:07 PM EDT): Question clinical significance of high titer ISAIAH in this patient with established dx of autoimmune hepatitis; repeat full serologies and complements today Osteopenia 06/24/2023 Overview (06/24/2023): DEXA 04/06/23 ([facility]) T-scores 2.5 l-spine right fem neck -1.2 total right femur -1.3 FRAX 17.1% for any 4.2% for hip Assessment & Plan (08/24/2023 9:26 AM EDT): Reviewed FRAX scores and recommendation for anti-resorptive therapy with patient today; she is at increased r/o falls given poor balance and impaired vision. Chronic prednisone requirement increases her fx risk significantly. Discussed relative benefit > risk of anti-resorptive therapy and written information on bisphosphonates provided for her review. She can f/u with her PCP though I am happy to answer additional ?s if needed in future. Baseline vit D level with next routine labs. Assessment & Plan (06/24/2023 1:17 PM EDT): FRAX for hip >3% cutoff for anti-resorptive therapy; almost certainly reflects chronic systemic steroid. Dedicated discussion deferred to f/u given time constraints today. Bilateral carpal tunnel syndrome 06/24/2023 Overview (06/24/2023): EMG/NCS 05/12/23 [facility] Moderate to severe left; mild to moderate right; chronic bl mid cervical radiculopathy Assessment & Plan (08/24/2023 9:28 AM EDT): Discussed tx options for persistent left-sided sxs including short-term increase in prednisone, local steroid injection, and surgical intervention. She will f/u with her established ortho practice to discuss surgery. Assessment & Plan (06/24/2023 1:18 PM EDT): Essentially asymptomatic on right; left sided sxs significantly improved with o/n bracing Autoimmune hepatitis 06/23/2023 Overview (06/24/2023): Hospitalized 2018 with liver failure; GI MD is Joes Salgado ([facility]) No h/o medications other than high dose prednisone; current dose is 5 mg daily since c. 2018 LFTs reportedly much improved with dietary changes Assessment & Plan (06/24/2023 1:08 PM EDT): High titer ISAIAH present in 2019 may reflect known autoimmune hepatitis; ? role of autoimmune hepatitis in presenting sxs that prompted initial rheumatology evaluation in 2019 Osteoarthritis 01/24/2020 Overview (08/24/2023): 1st CMCs, PIPs > DIPs, feet bl; s/p bl TKA and left BAILEY Assessment & Plan (08/24/2023 9:28 AM EDT): There is no historical, physical, or serologic e/o underlying or co-morbid inflammatory arthritis and thus no current indication for ongoing rheum-specific mgmt. Assessment & Plan (05/09/2022 9:06 AM EDT): 81 yo female with hx of auto-immune hepatitis , on prednisone 5 mg daily and anti-phospholipid antibody syndrome , s/p 2 CVA's followed by hematology on chronic coumadin. She has hx of pos ISAIAH and elevated CRP in 2019. There is no evidence of inflammatory arthritis or other auto-immune disease by labs and XR o hands /feet more consistent with OA. Positive ISAIAH and elevated CRP probably related to hx of AAH Will repeat labs today for monitoring. No indicatio for additional DMARD at this time She currently does not appear to have any active Rheumatology diagnosis at this time but going forward she may follow up at [facility] as she has her other care within the [facility] Primary osteoarthritis of both feet 01/24/2020 Calcaneal spur of left foot 01/24/2020 Acute pain of both knees 12/31/2019 Pain in both hands 12/25/2019 Pain in both feet 12/25/2019 Antiphospholipid antibody syndrome 12/25/2019 Overview (06/24/2023): dx'd 2019 following CVA x2; heme is Dr. Blair ([facility]) G0 no DVT/PE hx Compliant with warfarin Assessment & Plan (06/24/2023 1:06 PM EDT): Baseline labs not available for my review today; ordered Encounters Date Type Department Care Team Description 06/26/2025 11:00 AM EDT Home Care Visit [facility] [address] [place], [place] [phone] Russel Vincent, PT NON ADMIT HOME HEALTH VISIT 06/25/2025 Home Care Visit [facility] [address] [place], [place] [phone] Elina Knutson, PT CASE COMMUNICATION 06/12/2025 Orders Only [facility] [address] [place], [place] [phone] Homehealth, Interface ProviderMD from Last 3 Months Family History Medical History Relation Comments Coronary artery disease Father Dementia Maternal Grandmother Alzheimer's disease Mother Heart attack Paternal Grandfather Relation Status Comments Father Maternal Grandfather Maternal Grandmother Mother Paternal Grandfather Paternal Grandmother Social History Tobacco Use Types Packs/Day Years Used Date Smoking Tobacco: Former Cigarettes 2 10 1 963 - 1972 Smokeless Tobacco: Never Tobacco Cessation:Counseling Given: Not Answered Alcohol Use Standard Drinks/Week Comments Not Currently 0 (1 standard drink = 0.6 oz pur e alcohol) Education Answer Date Recorded Are you interested in more education? Not on cindy e 02/25/2023 Are you concerned about learning? Not on file 02/25/2023 No 02/25/2023 No 02/25/2023 Digital Access Answer Date Recorded No 03/26/2023 No 03/26/2023 Reliable internet access at home? Not on file 03/26/2023 Device with a working camera? Not on file Comments Unknown Sex and Gender Information Value Date Recorded Sex Assigned at Female 08/22/2023 10:24 PM EDT Legal Sex Female 10:12 PM EDT Gender Identity Female 08/22/2023 10:24 PM EDT Sexual Orientation Straight 08/22/2023 10 :24 PM EDT Last Filed Vital Signs Vital Sign Reading Time Taken Comments Blood Pressure 144/60 08/24/2023 8:35 AM EDT Pulse 80 08/24/2023 8:35 AM EDT Temperature - - Respiratory Rate 16 06/23/2023 9:32 AM EDT Oxygen Saturation 98% 08/24/2023 8:35 AM EDT Inhaled Oxygen Concentration - - Weight 96.2 kg (212 lb) 08/24/2023 8:35 AM EDT Height 170.2 cm (5' 7 ) 08/24/2023 8:35 AM EDT Body Mass Index 33.2 08/24/2023 8:35 AM EDT Plan of Treatment Health Maintenance Due Date Last Done Comments Adult Td,Tdap Booster 1940 DEPRESSION SCREENING 1953 HEPATITIS A VACCINES (1 of 2 - Risk 2-dose series) 1960 PNEUMOCOCCAL VACCINES (50+ y ears) (1 of 2 - PCV) 1960 ZOSTER VACCINES (1 of 2) 1991 OSTEOPOROSIS SCREENING INITI AL (ONE-TIME) 2006 RSV VACCINE (1 - 1-dose 75+ series) 2016 INFLUENZA VACCINE (#1) 2025 07/28/2022 COVID-19 VACCINE (2024-2 6 season) 2025 08/04/2022 HIB VACCINES Aged Out No longer eligi ble based on patient's age to complete this topic MENINGOCOCCAL VACCINES (ACWY) Aged Out No longer eligible based on patient's age to complete this topic MENINGOCOCCAL VACCINES (B) Aged Out N o longer eligible based on patient's age to complete this topic Medical Devices Not on file Insurance MEDICARE PART A & B [facility] MEDEX SUPPLEMENT MEDICARE PART A & B [employer] MEDEX SUPPLEMENT MEDICARE PART A & B [employer] MEDEX SUPPLEMENT MEDICARE PART A & B [employer] MEDEX SUPPLEMENT MEDICARE PART A & B [employer] MEDEX SUPPLEMENT MEDICARE PART A & B [employer] MEDEX SUPPLEMENT MEDICARE PART A & B [employer] MEDEX SUPPLEMENT MEDICARE PART A & B [employer] MEDEX SUPPLEMENT [employer] SUPPLEMENT Care Teams Post Hole Digger Relationship Specialty Start Date End Date Frederick Sapp PA [address] [place] [address] PCP - General 11/12/19 Abhi Shukla DO [address] [place] [address] Family Medicine 11/16/19 Additional Source Comments The information contained in this document represents components of the legal health record. It is not the complete legal health record.[facility]
== END 2025-07-25 10:39 | disposition home or self-care (01) ==
LOC: HO.HCS 09:56
PROVIDERS: PCP Internal Medicine Geriatric Medicine; Visit Provider Internal Medicine Cardiovascular Disease
DX: I35.0 Nonrheumatic aortic (valve) stenosis (principal); I47.10 Supraventricular tachycardia, unspecified
CPT/HCPCS: 93010; 99214; G2211

== ENCOUNTER → 2025-07-25 09:56 | Outpatient (BNVA) | payer MEDICARE, SELFPAY | PROVIDERS: PCP Internal Medicine Geriatric Medicine; Visit Provider Internal Medicine Cardiovascular Disease | DX: I35.0 Nonrheumatic aortic (valve) stenosis (principal); I47.10 Supraventricular tachycardia, unspecified; Z79.01 Long term (current) use of anticoagulants; Z87.891 Personal history of nicotine dependence | CPT/HCPCS: 93005; 99212 ==

== ENCOUNTER 2025-10-11 16:51 | Outpatient (REF) | payer MEDICARE, SELFPAY ==
[2025-10-11 17:41] LABS: Alanine Aminotransferase 19 U/L (0-31); Albumin Level 3.9 g/dL (3.5-5.0); Alkaline Phosphatase 75 U/L (39-117); Aspartate Amino Transferase 27 U/L (5-31); Total Protein 5.8 g/dL (6.5-8.0)
--- OUTSIDE RECORDS SUMMARY | 2025-10-11 20:44 | XMS_ITS | Data Portability ---
Author Organization [place] - Lamine Castillo [facility] Surgeons [facility], [facility] Address [address] [place] [address] Assessment Encounter Date Assessment Date Assessment LastModified [...] rx provided for platform attachment for walker. [email or web address] Not available 04/04/2024 14:25:29 Plan of Treatment [...] Bilateral completed Alicia Lemus MD [address] [facility] [address], [place], [address], [facility] 02/01/2024 16:41:34 Imaging Results None recorded. Procedure Notes None recorded. Medical Equipment None Reported. Allergies Allergen ID Allergen Name Allergen Category Reaction Reaction Severity Criticality Documentation Date Start Date Code Code System Note Provider Name and Address Organization Details Recorded Time 001949 wheat gluten extract food Not available Not available Not available 04/04/2024 93840 81 RxNorm KAMERON DEL RIO [facility] 13:05:44 024982 iodine medicatio n Not available Not available Not available 04/04/2024 5933 RxNorm KAMERON DEL RIO [facility] 13:05:54 Medications Name Sig Start [...] Updated DateTime 02/01/2024 170.18 cm 39.5 kg/m2 841768.28 g KAMERON DEL RIO [facility] 02/01/2024 15:15:18 Date Recorded Body height Body mass index (BMI) Body weight Provider Name and Address Organization Details Last Updated DateTime 04/04/2024 170.18 cm 33.2 kg/m2 54616.58 g KAMERON DEL RIO [facility] 04/04/2024 13:04:37 Social History None recorded. Functional Status None recorded. Mental Status None recorded. Family History Nothing Reported. Medical History No medical history recorded. Gynecological HistoryNo gynecological history recorded. Obstetrics History GPAL:G 0 P 0 0 0 0 Past Encounters Encounter ID Performer Location Encounter Start Date Encounter Closed Date Diagnosis/Indication Diagnosis SNOMED-CT Code Diagnosis ICD10 Code Diagnosis IMO Codes Diagnosis Note [id number] Alicia garvin MD [facility] on [address] [place] [address] 02/01/2024 14:57:50 02/27/2024 11:57:34 Carpal tunnel syndrome of left wrist 3934302539 91103 G56.02 Carpal lenka melchor syndrome of right wrist 9264207895 45154 G56.01 [id number] [facility] [address] [place] [address] 04/04/2024 12:37:08 05/04/2024 10:33:34 Carpal tunnel syndrome of left wrist 0579784609 41714 G56.02 Carpal lenka melchor syndrome of right wrist 0473058056 22688 G56.01 Health Concerns Section Related Observation LastModified by Organization Detai ls LastModified Time None Recorded Concern Status LastModified by Organization Details LastModified Time None Recorded Advance Directives Directive None Recorded Payers Insurance Date Sequence Insurance Name Policy Number Policy [place] Covered Member ID Coto Member ID Guarantor Name 05/04/2024 2 [place]) [id number] Ana Laura Lee [id number] Ana Laura Lee 04/04/2024 1 [place] [employer] Ana Laura Lee [id number] Ana Laura Lee Notes Date Note Type Note Provider Name and Address Organization Details Recorded Time 02/01/2024 text/html ROS as noted in the HPI Patient is a pleasant 83-year-old cwgtw-wccn-qhytxa nt female seen today for initial evaluation [...] challenges with dropping things. Alicia Lemus MD [address] [place] [address] [address], [place], [address], [facility] 02/07/2024 12:30:37 04/04/2024 text/html ROS as noted in the HPI Patient is a pleasant 83-year-old bgxho-klnw-gkfvfj nt female seen today for follow up [...] symptoms are minimal. Alicia Lemus MD [address] [facility] [address], [place], [address], [facility] [place] [facility] 04/04/2024 14:25:44 OBGyn Episode No OBEpisode recorded.
--- OUTSIDE RECORDS SUMMARY | 2025-10-11 20:44 | XMS_ITS | Encounter Summary ---
Author Organization [facility] Address [address] [employer] [address] [place] [address] Phone Care Team Providers Care Physical Design Engineer Name Role Phone Frederick Sapp Primary Care Provider + Abhi Shukla DO Unavailable [phone] Encounter Details Date Type Department Care Team (Late st Contact Info) Description 12/25/2019 Ancillary Orders [facility] Rheumatology [address] [place] [address] Carlos Napoles PA [address] [facility] [address] [address] [email or web address] Chronic pain in right foot Social [...] above. No acute fracture or dislocation. POS [id number] Narrative 12/25/2019 5:34 PM EST XR FOOT [...] above. No acute fracture or dislocation. POS [id number] Carlos DAMON IMG XR LOWER EXTREMITY Final Result documented in this encounter Visit Diagnoses Diagnosis Chronic pain in left foot Chronic pain in right foot Chronic pain in right foot documented in this encounter Care Teams Physical Design Engineer Relationship Specialty Start Date End Date Frederick Sapp PA [address] [place] [address] PCP - General 11/12/19 Abhi Shukla DO [address] [place] [address] Family Medicine 11/16/19 documented as of this encounter Additional Source Comments The information contained in this document represents components of the legal health record. It is not the complete legal health record.[facility]
--- OUTSIDE RECORDS SUMMARY | 2025-10-11 20:44 | XMS_ITS | Clinical Summary ---
Author Organization [facility] Address [address] [address] Phone Care Team Providers Care Asbestos Surveyor Name Role Phone Frederick Sapp Primary Care Provider + Abhi Shukla DO Unavailable [phone] Allergies Active Allergy Reactions Criticality Noted Date [...] today Osteopenia 06/24/2023 Overview (06/24/2023): DEXA 04/06/23 ([facility]) T-scores 2.5 l-spine right fem [...] tunnel syndrome 06/24/2023 Overview (06/24/2023): EMG/NCS 05/12/23 [facility] Moderate to severe left; mild to [...] 2018 with liver failure; GI MD is Jose Salgado ([employer]) No h/o medications other than high dose [...] going forward she may follow up at [facility] as she has her other care within the [facility] system Primary osteoarthritis of both feet 01/24/2020 Calcaneal spur of left foot 01/24/2020 Acute pain of both knees 12/31/2019 Pain in both hands 12/25/2019 Pain in both feet 12/25/2019 Antiphospholipid antibody syndrome 12/25/2019 Overview (06/24/2023): dx'd 2019 following CVA x2; heme is Dr. Blair ([facility]) G0 no DVT/PE hx Compliant with warfarin Assessment & Plan (06/24/2023 1:06 PM EDT): Baseline labs not available for my review today; ordered Family History Medical History Relation Comments Coronary [...] INFLUENZA VACCINE (#1) 2025 07/28/2022 COVID-19 VACCINE (2 - 2024-2 6 season) 2025 08/04/2022 HIB VACCINES Aged [...] file Insurance MEDICARE PART A & B [employer] MEDEX SUPPLEMENT MEDICARE PART A & B [employer] MEDEX SUPPLEMENT MEDICARE PART A & B [employer] MEDEX SUPPLEMENT MEDICARE PART A & B [employer] MEDEX SUPPLEMENT MEDICARE PART A & B [employer] MEDEX SUPPLEMENT [employer] MEDEX SUPPLEMENT MEDICARE PART A & B [facility] MEDEX SUPPLEMENT MEDICARE PART A & B [employer] MED[employer] SUPPLEMENT MEDICARE PART A & B [employer] MEDEX SUPPLEMENT Care Teams Asbestos Surveyor Relationship Specialty Start Date End Date Frederick Sapp PA [facility] [place] [address] PCP - General 11/12/19 Abhi Shukla DO [address] [place] [address] (work) Family Medicine 11/16/19 Additional Source Comments The information contained in this document represents components of the legal health record. It is not the complete legal health record.[facility]
--- OUTSIDE RECORDS SUMMARY | 2025-10-11 20:44 | XMS_ITS | Patient Health Record ---
Author Organization [facility] Address [address] [place] [address] Care Team Providers [employer] Name Role Phone Frederick Sapp Primary Care Provider Unavailab Jose Lemos Unavailable [phone] TONI GODDARD Unavailable Unavailable Allergies Allergen (clinical drug ingredient) Drug/Non Drug Allergy documented on EMR Reaction Allergy Type Onset Date Status Gluten gluten (uncoded) Unknown Allergy Act maryan povidone-iodine Betadine Unknown Drug Allergy A ctive cephalexin Cephalexin Unknown Drug Allergy Activ e clindamycin Clindamycin HCl Unknown Drug Allergy Active Iodine Unknown Drug Allergy Active morphine Morphine Sulfate rash Drug Allergy Active gabapentin Neurontin hives Drug Allergy Active Results Component Value Reference Range Flag Notes Liver Panel Reviewed date:11/29/2024 07:32:46 AM Interpretation: Performing Lab:[facility], [address] [place] [id number] Notes/Report: Bilirubin Total 1.1 0.0-1.0 mg/dL H Bilirubin Direct 0.4 0.0-0.5 mg/dL N Aspartate Amino Transferase 34 5-31 U/L H Alanine Aminotransferase 23 0-31 U/L N Total Protein 6.0 6.5-8.0 g/dL L Albumin Level 3.7 3.5-5.0 g/dL N Alkaline Phosphatase 86 39-117 U/L N Liver Panel (Not yet reviewe d by provider) Interpretation: Performing Lab:[facility], [address] [place] [id number] Notes/Report: Bilirubin Total 1.0 0.0-1.0 mg/dL N Bilirubin Direct 0.3 0.0-0.5 mg/dL N Aspartate Amino Transferase 27 5-31 U/L N Alanine Aminotransferase 19 0-31 U/L N Total Protein 5.8 6.5-8.0 g/dL L Albumin Level 3.9 3.5-5.0 g/dL N Alkaline Phosphatase 75 39-117 U/L N Reason For Referral No Information Medications Medication SIG (Take, Route, Frequency, Duration) Notes Start Date End Date Status Vitamin D3 Active Zinc Active predniSONE 5 MG Tablet TAKE 1 TABLET BY MOUTH EVERY DAY; Duration: 30 Active coumadin 1 tab Oral as directed Active predniSONE 5 MG Tablet 1 tablet Orally O nce a day; Duration: 30 day(s) 09/11/2022 Active Magnesium 1 capsule with a lance l Orally Once a day Active Dulcolax 5 MG Tablet Delayed Release 1 tablet as needed Orally Once a day PRN Active predniSONE 2.5 MG Tablet 1 tablet(2.5mg) alternating with 2 tablets(5mg) every day Orally Once a day; Duration: 90 days Active Calcium Active Immunizations Vaccine Route Administration Date Status Comme nts Flu vaccine no Preserv 3 and > Unknown 08/08/2018 Admin istered Influenza Unknown 07/31/2019 Administered Influenza Unknown 08/05/2020 Administered Social History Tobacco Use: Social History Observation Description Date Details (start date - stop date) Former Smoker NA - NA Social History Drugs/Alcohol: Social Info Question Answer Notes Alcohol Screen Did you have a drink containing alcohol in the past year? No Points 0 Interpretation Negative Tobacco Use: Social Info Question Answer Notes Tobacco Use/Smoking Patient is a former smoker When did you stop smoking? 1973 How long has it been since you last smoked? 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 Section Notes: Nonsmoker; no sig alcohol Nonsmoker; no sig alcohol Nonsmoker; no sig alcohol Nonsmoker; no sig alcohol Nonsmoker; no sig alcohol Nonsmoker; no sig alcohol; t akes marijuana gummies Problems Problem Type SNOMED Code ICD Code Onset Dates Problem Status W/U Status Risk Notes Problem Autoimmune hepatitis (002923848) Autoimmune hepatitis (K75.4) Active confirmed Problem Elevated liver enzymes level (030208503) Elevated liver enzymes (R74.8) Active confirmed Problem Elevated liver enzymes level (529236144) Elevated liver function tests (R94.5) Active confirmed Problem Essential hypertension (11169131) Hypertension, unspecified type (I10) Active confirmed Encounters Encounter Location Date Provider Diagnosis [facility] [address] [place] [address] 04/28/2025 Jose Salgado Autoimmune hepatitis K75.4 Assessments Encounter Date Diagnosis (ICD Code) Assessment Notes Treatment Notes Treatment Clinical Notes Section Notes 04/28/2025 Autoimmune hepatitis (ICD-10 - K75.4) Plan Of Treatment Pending Test Test Name Order Date CHEM 7 PROFILE 08/10/2018 CHEM 7 PROFILE 07/04/2018 CHEM 7 PROFILE 07/16/2018 LIVER PROFILE 07/16/2018 LIVER PROFILE 07/04/2018 LIVER PROFILE 09/07/2018 LIVER PROFILE 02/23/2019 LIVER PROFILE 03/19/2020 LIVER PROFILE 08/10/2018 LIVER PROFILE 01/22/2019 LIVER PROFILE 02/08/2019 LIVER PROFILE 03/18/2019 LIVER PROFILE 04/04/2019 LIVER PROFILE 04/17/2019 LIVER PROFILE 05/17/2019 LIVER PROFILE 08/25/2020 LIVER PROFILE 09/03/2020 LIVER PROFILE 09/16/2020 LIVER PROFILE 10/02/2020 LIVER PROFILE 10/16/2020 LIVER PROFILE 12/18/2020 LIVER PROFILE 04/05/2023 LIVER PROFILE 07/28/2023 LIVER PROFILE 04/26/2024 LIVER PROFILE 04/28/2025 AMMONIA 07/04/2018 CBC w DIFF 07/16/2018 CBC w DIFF 07/04/2018 PROTHROMBIN TIME (PT, INR) 07/04/2018 PROTHROMBIN TIME (PT, INR) 07/16/2018 Liver Panel 10/11/2025 Insurance Providers Payer Name Payer Address Payer Phone Subscriber Number Group Number Insured Name Patient Relationship to Insured Coverage Start Date Coverage End Date MEDICARE OF [place] [address] [facility] [place] [address] [id number] GIOVANY HER Self - patient is the insured [employer] CLAIMS [address] [place] [address] [phone] [id number] GIOV[place] HER Self - patient is the [...] almost normalization of her liver enzymes. Denies [place],Lung disease,renal disease Antiphospholipid antibody sy ndrome--2 stroke and 3 TIA's--2016--followed by Dr. Blair--she is resuming Coumadin as of September 07, 2018--her Coumadin had initially been stopped when she presented with the autoimmune hepatitis with associated jaundice and coagulopathy HTN NIDDM--since being on predniosone Urinary incontinence She describes a connective tissue disease followed by the relocation manager at [facility] [place] [facility]. Gallstones noted during her 2018 workup [...]
--- OUTSIDE RECORDS SUMMARY | 2025-10-11 20:45 | XMS_ITS | Data Portability ---
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 Plan: Control cardiovascular risk factors. Continue with manager interventional. Will check to see if she has had a sleep study - if not, will order one. There are some things that we know can help with overall cognition. Important to be an active listener - repeat back, write things down. Our ability to multi- task gets worse as we get older Try to just do one thing at a time Physical activity is the best thing - 30 minutes 4-5 times a week but start off slow and build up Mental activity - learning a new skill Social activity Meditation and/or Siva Chi can help Mood: Will ask more about this - PHQ9: 6 -feeling tired, having little energy, little pleasure in doing things. GAD7: 0 Plan: May want to consider starting SSRI or even SNRI - which can help with pain as well Mobility: Limited by significant OA Will discuss movement options next visit Medications: Consider using a pill box - but it seems that Ana Laura has a system I personally spent 160 minutes preparing for, caring for the patient (F2F and non-F2F), and finalizing the visit for this patient, which included discussion with patient and/or family about diagnosis, prognosis, recommendations, risk/benefits, risk reduction and education of above. Will f/u in 2-4 weeks for CPE. 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 Plan: Control cardiovascular risk factors. Continue with manager interventional. Will check to see if she has had a sleep study - Ana Laura is adamant that she doesnt have DI and doesnt want any studies - she says she falls asleep at places, doesnt think she snores, - and doesnt want to get this done. There are some things that we know can help with overall cognition: Important to be an active listener - repeat back, write things down. Our ability to multi- task gets worse as we get older Try to just do one thing at a time Physical activity is the best thing - 30 minutes 4-5 times a week but start off slow and build up Mental activity - learning a new skill Social activity Meditation and/or Siva Chi can help Mood: Good overall. She was quite depressed in her life in her 30's - she doesnt have that. She wishes she didnt have the pain all the time but it doesnt really depress her. PHQ9: 6 -feeling tired, having little energy, little pleasure in doing things. GAD7: 0 Plan: May want to consider starting SSRI or even SNRI - which can help with pain as well Mobility: Limited by significant OA Did get some steroid shots in her left wrist and maybe will get some in her shoulder. Medications: Ana Laura has a system - only takes 4 medications. I personally spent 80 minutes preparing for, caring for the patient (F2F and non-F2F), and finalizing the visit for this patient, which included discussion with patient and/or family about diagnosis, prognosis, recommendations, risk/benefits, risk reduction and education of above. F/u in 3 months - Ana Laura will check on vision, hearing and get labs done. 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 What are your goals for your overall health and well-being?: Just trying to stay alive - she would like to live to the outcome of the next presidential election. 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 Plan: Control cardiovascular risk factors. Continue with manager interventional. - Ana Laura is adamant that she doesnt have DI and doesnt want any studies - she says she falls asleep at places, doesnt think she snores, - and doesnt want to get this done. There are some things that we know can help with overall cognition: Important to be an active listener - repeat back, write things down. Our ability to multi- task gets worse as we get older Try to just do one thing at a time Physical activity is the best thing - 30 minutes 4-5 times a week but start off slow and build up Mental activity - learning a new skill Social activity Meditation and/or Siva Chi can help Mood: Good overall. She was quite depressed in her life in her 30's - she doesnt have that. She wishes she didnt have the pain all the time but it doesnt really depress her. PHQ9: 6 -feeling tired, having little energy, little pleasure in doing things. GAD7: 0 Plan: May want to consider starting SSRI or even SNRI - which can help with pain as well Mobility: Limited by significant OA Encourage more mobility - will put in a referral for PT and OT Medications: Ana Laura has a system - only takes a few medications Assessment: Patient reports discontinuing atorvastatin on March 27, 2025, after taking it for approximately 10 months. The medication was initially prescribed by her zinc miner blasting in April 2024 during a hospitalization for tachycardia. Recent LDL cholesterol level was 80 mg/dL, down from 91 mg/dL at the time of initial prescription. Patient reports feeling weaker over the 10 months she took atorvastatin and attributes this to potential statin-induced muscle weakness. She has a history of using diet to manage her autoimmune hepatitis and reports significant weight loss (from 270+ pounds to 186 pounds) over the past six years. I personally spent 70 minutes preparing for, caring for the patient (F2F and non-F2F), and finalizing the visit for this patient, which included discussion with patient and/or family about diagnosis, prognosis, recommendations, risk/benefits, risk reduction and education of above. F/u in 4 months Not available 06/12/2025 14:09:53 Plan of Treatment Reminders Order Date Submit Date Provider Last Modified By Organization Details Last Modified Time Details Appointments FOLLOW UP 60 2024 01:00P M Melvi [facility] MD Not available Not available Not available Lab vitamin D, 25-hydrox y, total, serum 2024 025 [facility], [address] [place] [address], [id number], 04/04/2025 17:33:30 HbA1c (hemoglob in A1c), blood 2024 025 [email or web address] [facility], [address] [place] [address], [id number], 04/04/2025 17:47:40 lipid panel, blood 2024 025 [facility], [address] [place] [address], [id number], 04/04/2025 17:33:30 CBC w/ auto diff 2024 025 [facility], [address] [place] [address], [id number], 04/04/2025 17:33:30 CMP, serum or plasma 2024 025 [facility], [address] [place] [address], [id number], 04/04/2025 17:33:30 Referral home health referral - Needs PT and OT 2024 025 [facility], [address], [place], [address], 06/28/2025 08:39:56 Procedures None recorded. Surgeries None recorded. Imaging None recorded. Medication Orders None recorded. Patient TargetsNo targets recorded. Patient Instructions Encounter Date Encounter Id Patient Instructions Last Modified By Organization Details Last Modified Time 03/13/2025 [id number] hearing evaluation* [facility] Not available 03/26/2025 12:09:24 Reason for Referral Home Health Referral for Abn ormal gait had CTS and didnt walk for 4 weeks, has h/o CVA, now with worsening gait instability Needs PT and OT Referring Physician: Melvi [facility], Geriatric Medicine, Encounter Date: 06/12/2025 Results Created Date Observation Date Name Description Value Unit Range Abnormal Flag Note LastModifiedBy Organization Detail LastModifiedTime 03/19/20 25 03/19/2025 MRI, brain , w/o contr ast No observ ation record ed. [address] [place], [address], 03/19/2025 10:56:42 03/19/2007/12/2023 US, echoc ardio gram No observ ation record ed. [address] [facility] [address] [place], [address], 06/12/2025 13:09:41 03/19/20 25 05/24/2024 codi r monit or No observ ation record ed. [address] [facility] [address] [place], [address], 03/20/2025 21:48:53 Result Notes None recorded. Problems Name Problem SNOMED Code Status Onset Date Resolution Date Notes Provider Name and Address Organization Details Recorded Time Antiphosp holipid syndrome 29338671 Active 2024 Jordyn Grantco eagle, [employer] 13:09:02 Abnormal gait 72403559 Active 2024 Melvi Argueta MD [address],[facility], [place], [address], [employer] 13:13:24 Osteoarth ritis of multiple joints 345687931 Active 2024 Melvi Argueta MD [address], [place], [address], [place] [facility] [employer] 13:13:52 History of thrombosi s 785562757 Active 2024 Melvi Argueta MD [address], [place], [address], [place] [facility] 13:14:03 History of transient ischemic attack 938496968 Active 2024 Melvi Argueta MD [address], [place], [address], [place] [facility] [employer] 13:14:10 Urinary incontine sde 920868637 Active 2024 Melvi Argueta MD [address], [place], [address], [place] [facility] [employer] 13:14:28 Carpal tunnel syndrome 71283118 Active 2024 Melvi Argueta MD [address], [place], [address], [place] [facility] [employer] 13:14:39 Osteopeni a 195004860 Active 2024 Melvi Argueta MD [address], [place], [address], [employer] [place] [facility] [employer] 13:15:17 Cardiac arrhythmi a 926700343 Active 2024 Melvi Argueta MD [address], [place], [address], [place] [facility] [employer] 13:15:34 History of cerebrova scular accident 316292563 Active 2024 & April 2016 Melvi Argueta MD [address], [place], [address], [place] [facility] [employer] 13:15:48 Autoimmun e hepatitis 316928143 Active 2024 Melvi Argueta MD [address], [place], [address], [place] [facility] 5 13:16:00 Degenerat maryan disorder of macula 000163338 Active 2024 Melvi Argueta MD [address], [place], [address], [place] [facility] 13:16:17 Arthritis 8112183 Active 2024 Melvi Argueta MD [address], [place], [address], [place] [facility] 13:16:29 Tinnitus 94097286 Active 2024 Melvi Argueta MD [address], [place], [address], [place] [facility] 13:16:56 Type 2 diabetes mellitus 26827076 Active 2024 Melvi Argueta MD [address], [place], [address], [place] [facility] 14:11:12 History of malignant neoplasm of breast 261788594 Active 2024 had radiation at [facility] Melvi [facility]gueta MD [address], [place], [address], [place] [facility] 14:23:51 Seen by primary care physician 923146747605 9 Active 2024 Melvi [facility]eta MD [address], [place], [address], [place] [facility] 5 15:42:01 Active or passive immunizat ion Active 2024 Melvi Argueta MD [address], [place], [address], [place] [facility] 15:42:04 Advance care planning Active 2024 Melvi Argueta MD [address], [place], [address], [employer] 15:42:06 Goal achieveme nt finding 811938422 Active 2024 Melvi [facility] MD [address] [facility],[address], [place], [address], [place] [employer] 15:42:09 Vitamin D deficienc y 36223609 Active 2024 Melvi [facility] MD [address] [facility],[address], [place], [address], [place] [employer] 15:52:45 Overweigh t 379217814 Active 2024 Melvi [facility] MD [address] [facility] [address], [place], [address], [employer] 13:01:21 Systolic murmur 06935262 Active 2024 Melvi [facility] MD [address] [facility],[address], [place], [address], [employer] 13:01:29 Problem Notes None recorded. Medical Equipment None Reported. Allergies Allergen ID Allergen Name Allergen Category Reaction Reaction Severity Criticality Documentation Date Start Date Code Code System Note Provider Name and Address Organization Details Recorded Time 1093 morphine medicatio n hives severe Not available 02/12/20252006 7052 RxNorm Jordyn [employer] 13:08:07 1094 oxycodone medicatio n hives severe Not available 02/12/20252006 7804 RxNorm Jordyn [employer] 13:08:07 1095 cephalexi n medicatio n anaphylax is severe Not available 02/12/2025 2231 RxNorm Jordyn On[employer]co [employer] 13:08:07 1096 clindamyc in Not available anaphylax is severe Not available 02/12/2025 2582 RxNorm Jordyn [place], [place] [employer] [place] [employer] [facility] 5 13:08:07 1097 Betadine medicatio n itching severe Not available 02/12/20252002 33208 0 RxNorm Jordyn [facility] [employer] [facility] 5 13:08:07 1098 gabapenti n medicatio n hives severe Not available 02/12/2025 50669 RxNorm Jordyn [place], [place] [employer] [place] [facility] 13:08:07 1099 wheat gluten extract food diarrhea severe Not available 02/12/2025 50800 81 RxNorm Jordyn [facility] 5 13:08:07 Medications Name Sig Start Date Stop Date Status Note LastModified by Organization Details LastModified Time atorvastati n 10 mg tablet TAKE 1 TABLET BY MOUTH AT BEDTIME 06/12 completed Not Available Not Available Not Available warfarin 3 mg tablet TAKE 1 TABLET BY MOUTH DAILY active Not Available Not Available No t Available prednisone 2.5 mg tablet TAKE 1 TABLET ALTERNATI NG WITH 2 TABLETS EVERY DAY 06/12 completed Not Available Not Available Not Available metoprolol succinate ER 25 mg tablet,exte nded release 24 hr TAKE 1 TABLET BY MOUTH EVERY DAY active Not Available Not Available No t Available B Complex active Not Available Not Thelma ilable Not Available calcium 333 mg (carbonate) -magnesium 133 mg (oxide)-zin c 5 mg tablet Take by oral route. active Not Available Not Available No t Available cannabidiol (CBD) extract active Not Available Not Available Not Available marijuana (cannabis)- THC active Not Available Not Available Not Available Vitals Date Recorded Body height Heart rate Oxygen saturation Body mass index (BMI) Body weight Systolic And Diastolic Provider Name and Address Organization Details Last Updated DateTime 5 143.51 cm 81 /min 95 % 42.9 kg/m2 12757.5 1 g 168/66 mm[Hg] Jordyn Rees [place] [employer] [facility] 5 13:21:28 Date Recorded Body height Oxygen saturation Heart rate Body mass index (BMI) Body weight Systolic And Diastolic Provider Name and Address Organization Details Last Updated DateTime 143.51 cm 98 % 66 /min 41.6 kg/m2 24318.9 6 g 138/64 mm[Hg] Jordyn Rees [place] [employer] [facility] 14:24:52 Date Recorded Oxygen saturation Heart rate Provider Name and Address Organization Details Last Updated DateTime 06/12/2025 96 % 61 /min Dany Snow [place] [employer] [facility] 06/12/2025 13:04:11 Social History None recorded. Functional Status None recorded. Mental Status None recorded. Family History Nothing Reported. Medical History Condition Response Emphysema N Incontinence Y Edema N Acid Reflux (GERD) N Abnormal Bleeding N Urinary Problems Y Abdominal Pain N Back Problems N Thyroid Disease N Deep Vein Thrombosis N Hearing Loss N Abnormal Pap Smear N Nervous System Disorder N Parkinson's Disease N Heart Attack (PR) N Dementia N Gynecological HistoryNo gynecological history recorded. Obstetrics History GPAL:G 0 P 0 0 0 0 Past Encounters Encounter ID Performer Location Encounter Start Date Encounter Closed Date Diagnosis/Indication Diagnosis SNOMED-CT Code Diagnosis ICD10 Code Diagnosis IMO Codes Diagnosis Note [id number] Melvi Argueta MD [facility] [address] [facility] [address] [place] [address] 02/12/2025 12:34:49 02/24/2025 21:21:33 Seen by primary care physician [id number] 109 Z76.89 CPE: Specialist s:She is very organized and has a book/clipb oard:[facility] Solitario Ramirez, [place] [facility] -Dr Jose Salgado, GI - diagnosed her autoimmune hepatitis, hasnt seen him since pre-cov. Gets blood test every 2 months - nurse comes to her house to draw her blood.Dr Darien Nicole - Cardiologi , saw him last [facility], now has an appt [facility], March 07, 2025Orthop edist at [facility] April 01 , seeing a specialist for her hands in the next few months. [facility] health:BMI : around 199 lbs (didnt want to get weighed)Li pids: will check labsDiabet es: will check on last AICBP control: Elevated todayAAA screen: does not want any screening Hearing: needs to be checked. would be open to a referral.D ental: [facility] -Vision: [facility] n - looking for a new doctor as he won't operate on cataracts Cancer Screening: Does not want any screeningB reast: 2013 - [facility] - had h/o breast cancer, she sees no point in getting mammograms . Even if she had cancer again, she would not get it treated.Ce rvical:200 6Colon: NeverLung: quit smoking in 1972 - no screening done Diet & Exercise: LimitedOst eoporosis Screening: ? osteopenia Other health screenin Active or passive immunization [id number] Z23 MIIS ID: [id number] (accessed 02.12.25) UTD on everything ; could get another covid booster SummaryImm unizations RSV 09/21/2023 HistoryTd 10/18/2019 HistoryPne umoPCV 08/25/2015 09/21/2023 HistoryPne umoPPV 10/18/2019 HistoryFlu 09/16/2010 (H) 08/02/2011 (H) 08/04/2012 (H) 07/18/2013 (H) 08/25/2015 09/02/2016 08/18/2017 07/31/2019 (H) 08/07/2020 08/03/2021 07/28/2022 08/17/2023 07/10/2024 HistoryCOV ID-[id number] 12/08/2020 12/29/2020 07/21/2021 03/02/2022 08/04/2022 03/16/2023 08/17/2023 03/21/2024 07/10/[address] 08/03/2021 10/06/2021 History Advance care planning 71 [id number] Z71.89 Health Care Proxy: Mel NegreteMARCOT : DNR/DNI - she would like to go to the hospital if there is something treatable. Other: - Goal achie vement finding [id number] Z72.89 Lifestyle Assessment Short Form:1. Overall level of health (0 - very poor - 10 excellent) 5 Sleep:2. Avg hours sleep: 7-8 hours3. How often felt tired:near ly every day Weight Management :What do you think about your current weight?: want to lose a lot of weight. has been trying to lose weight slowly for the past 10 years Nutrition: 5. how often have you eaten fast food/sugar y drinks or packaged foods:? several days6. Daily servings of fruits&veg etables:4- 5 servings Exercise:7 . Frequency: 5 or more times per week, using a seated stepper8. Minutes of moderate-s trenuous exercise per session: 30-49 minutes/da y Purpose and connection /Mental health: (0 - best to 3- worst)9.a. purpose:3b . support: 0c. little pleasure:2 d. feeling down, depressed, hopeless: 0e. feeling nervous/an xious: 0f. worryin Smoking/[place] bstance Use10. Nicotine: noHistory of?Frequnc y: Is there concern?: (1 low concern-5 high concern)11 . Alcohol: noFrequenc y: Is there concern?: (1 low concern-5 high concern)Hi story of?12. Recreation al drugs: noFrequncy : Is there concern?: (1 low concern-5 high concern)Hi story of?13. Cannabis: yes one cbd/thc gummy a day, 5 mg THC at nightFrequ ncy: Is there concern?: (1 low concern-5 high concern)Hi story of? Motivation :14. Top three areas most motivated to change to improve overall currently level of health:Han billyt mgmt, purpose and connection , nutrition. What motivates you to be healthier: Feeling better. Abnormal gait 73634400 R 26.81 682854 Has been using the walker since the stroke. Multifacto rial - OA, h/o joint replacemen ts, strokes, connective tissue diseaseShe doesnt know why she has difficult walking - ? from the stroke, connective tissue diseaseShe uses chair lifts to get from one floor of her house to the next.Will review how to get more mobility and strength Arthritis 8037558 M19.90 75022 Multiple joints involved had 2 TKR and 1 THR.The worse pain she has is in her left lateral wrist as well as her shoulders. 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 Autoimmune hepatitis 408 967455 K75.4 426296 She went to the hospital with liver failure. They took about 3 days to diagnose it - they did a biopsy, and a lot of other things. That was about the sickest she was.She was started on Prednisone - 60 mg - - hair started failing out and she developed diabetes because of it -She would like to get off the prednisone if she can - currently on prednisone 2.5 mg qod.- will see which specialist manages it.Dr Solitario Ramirez, [place] [facility] and also has seen GI - nurse comes to her house every 2 months to check labs. Cardiac arrhythmia 14350 7007 I49.9 [id number] Tachycardi a - she is on metoprolol ER 25 mgDr Darien Nicole is her Cardiologi , she saw him last check on next visit Carpal lenka melchor syndrome [id number] G56.00 [id number] [facility]; mild to moderate right; chronic b/l mid cervical radiculopa thy Will be going to [facility] for assessment History of cerebrovascular accident [id number] Z86.73 231074 She had two strokes in 2016, after the second could no longer drive due to double vision. History of thrombosis 27 6247957 Z86.805 8571482 She is on warfarin now - she had clots on Eliquis when it was not known what she had.Manage s her own INR - [facility] helps get the blood, Coumadin is managed by both pt and hematology Osteopenia 153552089 M85 .859 [id number] DEXA 04/06/23 ([facility]) T-scores 2.5 l-spine right fem neck -1.2 total right femur -1.3FRAX 17.1% for any 4.2% for hipDoes take some Vitamin D. Dr Hilliard - Rheumatrhys haque, now has an appt [facility], March 07, 2025Will see if they help manage thisWill discuss starting bisphospho ariadna Urinary incontinence 165 059745 R32 [id number] will discuss further next visit. Overweight 288192230 E66 .3 62947 Has been as high as 331. She has lost weight over the past 10 years and would like to continue to lose some weight slowly.She is not on a diet but tries to be mindful.Co unique consider [facility] weight loss program. Type 2 sangita rosioes mellitus 25363445 E11.9 [id number] Will check on last , does not appear to be on medication s. History of transient ischemic attack 687228551 Z86.73 0209699 had two strokes in 2016, after the second could no longer drive due to double vision.Con tinue atorvastat in 10 mg, anti-coagu lation. History of malignant neoplasm of breast 320381840 Z85.3 385843 Does not want any further follow up/screeni ng. 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 Seen by [facility] care physician [id number] 109 Z76.89 CPE: CBC 7.17.24 - wbc 5.8, hgb 14.4, hct 44.1, platelets 176BMP 7.17.24 - Na144, K 4.1, Cl 112, Cr 0.71, BUN 19, Ca 9.11.23.25 - T Bili 1.1, D Bili 0.4, ast 34, alt 23, alk phos 86 T Protein 6, Specialist s:She is very organized and has a book/clipb oard:Dr Solitario Ramirez, [place] [facility] -Dr Jose Salgado, GI - diagnosed her autoimmune hepatitis, hasnt seen him since pre-covid. Gets blood test every 3 months - nurse comes to her house to draw her blood - for her liver functions. She is cutting down on her prednisone .Dr Darien Nicole - Cardiologdavion [facility], saw him last AprilDr Babak Be Rheumatrhys haque, had appt [facility], March 07, 2025Orthop edist at [facility] April 01 , seeing a specialist for her hands in the next few months. [facility]:BMI : around 199 lbs (didnt want to get weighed)Li pids: 7.24 - Chol 160, Trig 83, hdl 53, ldl 91 will check lab -Diabetes: will check AICBP control: better today.AAA screen: does not want any screening Hearing: needs to be checked. would be open to a referral - made to Zita Thorne al: [facility] -[facility]ision: [facility] n - looking for a new doctor as he won't operate on cataractsR ecommended local ophthalmol ogist in [place]. Cancer Screening: Does not want any screeningB reast: 2013 - [facility] - had h/o breast cancer, she sees no point in getting mammograms . Even if she had cancer again, she would not get it treated.Ce rvical:200 6Colon: NeverLung: quit smoking in 1972 - no screening done Diet & Exercise: LimitedOst eoporosis Screening: osteopenia Other health screenin Active or passive immunization [id number] Z23 MIIS ID: [id number] (accessed 02.12.25) UTD on everything ; could get another covid booster SummaryImm unizations RSV 09/21/2023 HistoryTd 10/18/2019 HistoryPne umoPCV 08/25/2015 09/21/2023 HistoryPne umoPPV 10/18/2019 HistoryFlu 09/16/2010 (H) 08/02/2011 (H) 08/04/2012 (H) 07/18/2013 (H) 08/25/2015 09/02/2016 08/18/2017 07/31/2019 (H) 08/07/2020 08/03/2021 07/28/2022 08/17/2023 07/10/2024 HistoryCOV ID-19 12/08/2020 12/29/2020 07/21/2021 03/02/2022 08/04/202203/1603/16/2023 08/17/2023 03/21/2024 07/10/[address] 08/03/2021 10/06/2021 History Advance care planning 71 [id number] Z71.89 Health Care Proxy: Mel TurciosT : DNR/DNI - she would like to go to the hospital if there is something treatable. Other: - Goal achie vement finding 763111613 Z72.89 Lifestyle Assessment Short Form:1. Overall level of health (0 - very poor - 10 excellent) 5 Sleep:2. Avg hours sleep: 7-8 hours3. How often felt tired:near ly every day Weight Management :What do you think about your current weight?: want to lose a lot of weight. has been trying to lose weight slowly for the past 10 years Nutrition: 5. how often have you eaten fast food/sugar y drinks or packaged foods:? several days6. Daily servings of fruits&veg etables:4- 5 servings Exercise:7 . Frequency: 5 or more times per week, using a seated stepper8. Minutes of moderate-s trenuous exercise per session: 30-49 minutes/da y Purpose and connection /Mental health: (0 - best to 3- worst)9.a. purpose:3b . support: 0c. little pleasure:2 d. feeling down, depressed, hopeless: 0e. feeling nervous/an xious: 0f. worryin Smoking/[place] bstance Use10. Nicotine: noHistory of?Frequnc y: Is there concern?: (1 low concern-5 high concern)11 . Alcohol: noFrequenc y: Is there concern?: (1 low concern-5 high concern)Hi story of?12. Recreation al drugs: noFrequncy : Is there concern?: (1 low concern-5 high concern)Hi story of?13. Cannabis: yes one cbd/thc gummy a day, 5 mg THC at nightFrequ ncy: Is there concern?: (1 low concern-5 high concern)Hi story of? Motivation :14. Top three areas most motivated to change to improve overall currently level of health:Han jacobo mgmt, purpose and connection , nutrition. What motivates you to be healthier: Feeling better. Abnormal gait 71305084 R 26.81 634882 Has been using the walker since the stroke. Multifacto rial - OA, h/o joint replacemen ts, strokes, connective tissue diseaseShe doesnt know why she has difficult walking - ? from the stroke, connective tissue diseaseShe uses chair lifts to get from one floor of her house to the next.Will review how to get more mobility and strength Arthritis 0305187 M19.90 33636 Multiple joints involved had 2 TKR and 1 THR.The worse pain she has is in her left lateral wrist as well as her shoulders. 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 Autoimmune hepatitis 408 180252 K75.4 408053 She went to the hospital with liver failure. They took about 3 days to diagnose it - they did a biopsy, and a lot of other things. That was about the sickest she was.She was started on Prednisone - 60 mg - - hair started failing out and she developed diabetes because of it - currently on prednisone 2.5 mg qod.She would like to get off the prednisone if she can.- will see which specialist manages it.Dr Solitario Ramirez, [place] [facility] and also has seen GI - nurse comes to her house every 2 months to check labs. Cardiac arrhythmia 66491 7007 I49.9 [id number] Tachycardi a - she is on metoprolol ER [address] Darien Nicole is her Cardiologi st, she saw him last AprilPlan for f/u around April 2025 Carpal lenka melchor syndrome 59802074 G56.00 [id number] EMG/NCS 05[facility]12/23 [place] [facility]; mild to moderate right; chronic b/l mid cervical radiculopa thy Will be going to [facility] for assessment History of cerebrovascular accident 953108527 Z86.73 231307 She had two strokes in 2016, after the second could no longer drive due to double vision.Con tinue atorvastat in History of thrombosis 7096172 Z86.008 9249138 She is on warfarin now - she had clots on Eliquis when it was not known what she had.Manage s her own INR - [facility] helps get the blood, Coumadin is managed by both pt and hematology Osteopenia 814906014 M85 .859 [id number] DEXA 04/06/23 ([facility]) T-scores 2.5 l-spine right fem neck -1.2 total right femur -1.3FRAX 17.1% for any 4.2% for hip Did see Dr Hilliard - Rheumatolo gist. He wanted her to go on fosamax but she refused.- Had appt [facility], March 07, 2025- Continue Vitamin D and ensure she is getting calcium Urinary incontinence 165 442959 R32 10835362 has both stress and urge incontinen ce, does seem to be getting better with weight loss. She had a MRI bladder and pelvic area was done.She used to take Detrol -Discussed options -including myrbetriq, pelvic floor therapy and urogyn - but doesnt want to try any of them. Overweight 749292911 E66 .3 74081 Has been as high as 331. She has lost weight over the past 10 years and would like to continue to lose some weight slowly.She is not on a diet but tries to be mindful.Co unique consider [facility] weight loss program. Type 2 sangita betes mellitus 78524596 E11.9 [id number] Will check AICHad DM but now controlled without medication s. History of malignant neoplasm of breast 832380298 Z85.3 659651 Does not want any further follow up/screeni ng. Did not have lymph node dissection .Had radiation on her left breast and wonders if she can have her BP checked - as long as she doesnt have lymphedema , she should be able to get her BP checked. Antiphosph olipid syndrome 34144848 D68.61 Now on coumadin - had dvt on EliquisGet s labs drawn at home. Systolic murmur 95478327 R01.1 9658639 will check on last echo - Ana Laura notes Dr Hilliard said she had a murmur but was not told otherwise. 2185 MD Ellie Yang s Primary Care [address] [place] [address] 06/12/2025 12:39:36 06/12/2025 13:59:27 History of transient ischemic attack 108653625 Z86.73 8467700 had two strokes in 2016, after the second could no longer drive due to double vision.Dyllan dunlapue anti-coagu lation. Seen by pr [facility] care physician [id number] 109 Z76.89 CPE: Labs:CBC 7.17.24 - wbc 5.8, hgb 14.4, hct 44.1, platelets 176BMP 7.17.24 - Na144, K 4.1, Cl 112, Cr 0.71, BUN 19, Ca 9.11.23.25 - T Bili 1.1, D Bili 0.4, ast 34, alt 23, alk phos 86 T Protein 6, 5.14.25:CM P: Na 144, K 4.1, BUN 17, Ca 8.7, glucose 99, protein 6.2 (L)CBC: wnl wbc 4.8, hgb13.9, hct 41.4, mcv 91, rdw 14.7Vit D 50.2 Specialist s:She is very organized and has a book/clipb oard:Dr Solitario Ramirez, [place] [facility] -- has seen her recentlyDr Jose Salgado, GI - diagnosed her autoimmune hepatitis, hasnt seen him since pre-covid. Gets blood test every 3 months - nurse comes to her house to draw her blood - for her liver functions. She is cutting down on her prednisone .Dr Darien Nicole - Cardiologi , saw him last Babak - Rheumatolo [facility], had appt [facility], March 07, 2025Orthop edist at [facility] April 01 , seeing a specialist for her hands in the next few months.Has seen a security incident response specialist [facility]:BMI : around 199 lbs (didnt want to get weighed)Li pids: 7.24 - Chol 160, Trig 83, hdl 53, ldl 915.31.25 - lipids: chol 152, ldl 80, hdl 57, trig 77Diabetes : 5.31.25 - AIC 5.1BP control: better today.AAA screen: does not want any screening Hearing: [facility] - Dr Hicks, wearing hearing aidsDental : [facility] -[facility]: [facility] n - looking for a new doctor as he won't operate on cataractsR ecommended local ophthalmol ogist in [place]. Cancer Screening: Does not want any screeningB reast: 2013 - [facility] - had h/o breast cancer, she sees no point in getting mammograms . Even if she had cancer again, she would not get it treated.Ce rvical:200 6Colon: NeverLung: quit smoking in 1972 - no screening done Diet & Exercise:L imitedOste oporosis Screening: osteopenia Other health screening: - Active or passive immunization [id number] Z23 MIIS ID: [id number] (accessed 02.12.25) UTD on everything ; could get another covid booster SummaryImm unizations RSV 09/21/2023 HistoryTd 10/18/2019 HistoryPne umoPCV 08/25/2015 09/21/2023 HistoryPne umoPPV 10/18/2019 HistoryFlu 09/16/2010 (H) 08/02/2011 (H) 08/04/2012 (H) 07/18/2013 (H) 08/25/2015 09/02/2016 08/18/2017 07/31/2019 (H) 08/07/2020 08/03/2021 07/28/2022 08/17/2023 07/10/2024 HistoryCOV ID-19 12/08/2020 12/29/2020 07/21/2021 03/02/2022 08/04/2022 03/16/2023 08/17/2023 03/21/2024 07/10/[address] 08/03/2021 10/06/2021 History Advance care planning 71 9349741 Z71.89 Health Care Proxy: Mel TamT : DNR/DNI - she would like to go to the hospital if there is something treatable. Other: - Goal achie vement finding 255431259 Z72.89 Lifestyle Assessment Short Form:1. Overall level of health (0 - very poor - 10 excellent) 5 Sleep:2. Avg hours sleep: 7-8 hours3. How often felt tired:near ly every day Weight Management :What do you think about your current weight?: want to lose a lot of weight. has been trying to lose weight slowly for the past 10 years Nutrition: 5. how often have you eaten fast food/sugar y drinks or packaged foods:? several days6. Daily servings of fruits&veg etables:4- 5 servings Exercise:7 . Frequency: 5 or more times per week, using a seated stepper8. Minutes of moderate-s trenuous exercise per session: 30-49 minutes/da y Purpose and connection /Mental health: (0 - best to 3- worst)9.a. purpose:3b . support: 0c. little pleasure:2 d. feeling down, depressed, hopeless: 0e. feeling nervous/an xious: 0f. worryin Smoking/[place] bstance Use10. Nicotine: noHistory of?Frequnc y: Is there concern?: (1 low concern-5 high concern)11 . Alcohol: noFrequenc y: Is there concern?: (1 low concern-5 high concern)Hi story of?12. Recreation al drugs: noFrequncy : Is there concern?: (1 low concern-5 high concern)Hi story of?13. Cannabis: yes one cbd/thc gummy a day, 5 mg THC at nightFrequ ncy: Is there concern?: (1 low concern-5 high concern)Hi story of? Motivation :14. Top three areas most motivated to change to improve overall currently level of health:Han billyt mgmt, purpose and connection , nutrition. What motivates you to be healthier: Feeling better. Abnormal gait 78077285 R 26.81 111933 Has been using the walker since the stroke. Multifacto rial - OA, h/o joint replacemen ts, strokes, connective tissue diseaseShe doesnt know why she has difficult walking - ? from the stroke, connective tissue diseaseShe uses chair lifts to get from one floor of her house to the next.Didnt walk much after her CTS surgeryWil l put in order for [facility] & hospice Autoimmune hepatitis 408 765973 K75.4 884910 She went to the hospital with liver failure. They took about 3 days to diagnose it - they did a biopsy, and a lot of other things. That was about the sickest she was.She was started on Prednisone - 60 mg - - hair started failing out and she developed diabetes because of it. Now off of Prednisone . Did see Dr Solitario Ramirez, [place] [facility] .Also is with GI - Dr Salgado - - nurse comes to her house every 2 months to check labs (LFT) Cardiac arrhythmia 01802 7007 I49.9 [id number] Tachycardi a - she is on metoprolol ER 25 mgDr Darien Corey is her Cardiologi , she saw him last AprilPlan for f/u around April 2025 but she had surgery -Has an appt ~ July 2025 Carpal lenka melchor syndrome 31817030 G56.00 [id number] EMG/NCS 05/12/23 [place] [facility]; mild to moderate right; chronic b/l mid cervical radiculopa thy Assessment : Patient underwent carpal tunnel surgery chris carmichael 5 weeks ago (around May 06, 2025). She reports more difficult recovery compared to previous surgeries (knee, hip, breast cancer), attributin g this to her advanced age and inability to use her walker. Patient experience d significan t weakness, particular ly in her legs, due to prolonged inactivity . She has recently resumed using her walker and reports improvemen t in mobility and strength. The surgeon has cleared her to use the walker as of yesterday. Patient mentions potential need for additional week of recovery to regain normal walking ability. Plan:- Consider referral for home-based physical therapy through [facility] nurses- Encourage continued use of walker as tolerated- Recommend gradual increase in activity, including use of CD-Stepper and isometric exercises- Protect incision site with plain pads under the incision while using walker- Follow up with surgeon as scheduled for ongoing post-opera tive care- Reassess need for physical therapy referral at next visit History of cerebrovascular accident 998511545 Z86.73 416394 She had two strokes in 2016, due to anti-phosp holipid syndrome, after the second could no longer drive due to double vision. Type 2 sangita betes mellitus 44803621 E11.9 [id number] Had DM but now controlled without medication s.Last AIC ~ 5.1 (5.31.25) Antiphosph olipid syndrome 09931590 D68.61 22980 Now on coumadin - had dvt on EliquisGet s labs drawn at home. Systolic murmur 77076326 R01.1 7136907 Ana Laura notes Dr Hilliard said she had a murmur but was not told otherwise. 2022 - EF 57%, mild aortic stenosis, grade 1 diastolic dysfunctio n.Consider f/u in a year or two - will discuss Physical deconditioning [id number] 9102 R53.81 874735 Deconditio ningAssess ment: Patient reports significan t weakness following 4 weeks of limited mobility due to recent carpal tunnel surgery. She notes difficulty walking and using her walker initially, but has experience d improvemen t over the past two days since resuming walker use. Patient has been performing isometric exercises (foot pumps, leg muscle tightening , gluteal contractio ns) approximat amol 10 times daily and recently resumed use of her CD-Stepper for [address] minutes.[address] an:- Encourage gradual increase in physical activity as tolerated- Recommend core and psoas muscle strengthen ing exercises- Suggest resistance band exercises for arms- Consider use of light weights (1-2 pounds) for upper body strengthen ing- Educate on importance of maintainin g activity to prevent further deconditio david- Assess need for physical therapy referral at follow-up visit Health Concerns Section Related Observation LastModified by Organization Detai ls LastModified Time None Recorded Concern Status LastModified by Organization Details LastModified Time None Recorded Advance Directives Directive None Recorded Payers Insurance Date Sequence Insurance Name Policy Number Policy Coto Covered Member ID Coto Member ID Guarantor Name 10/06/2025 1 [place] Ana Laura Lee [id number] Ana Laura Krishnamurthy Jesus 07/06/2025 2 [place] [id number] Ana Laura Lee [id number] Ana Laura Krishnamurthy Jesus Notes Date Note Type Note Provider Name and Address Organization Details Recorded Time 02/12/2025 text/html ROS as noted in the HPI [facility] New Patient Information Person to contact for appointments and communication of results and appointments Self:Preferred PronounsShe/her/her:Fo rmer PCP: Dr Frederick Nagel, in [place] [facility] HPI: Here for new pt visit with her manager interventional She cant drive anymore after her second stroke - she lost her depth perception. PHQ9: 6 -feeling tired, having little energy, little pleasure in doing things.GAD7: 0 Health and Wellness Goals: What are your goals for your overall health and well-being?:Just trying to stay alive - she would like to live to the outcome of the next presidential election. 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 Born in [place], Raised in [place] and [place], [place] and [place], [place]. (she moved there when she was 13) ; only child. 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 Has done some drawing and painting. Do you have any special skills, interests or hobbies?Not any more. Spends her time now - fruitlessly - she is not doing anything, it is awful . She doesn't read books anymore. She doesn't have a smart phone. She notes that she is a liberal. List any specialists you currently see:Dr Solitario Nicole Surgeries and Hospitalizations:Spine fusion - disc damaged in accident 1990Breast cancer lumpectomy 2003Two TKR 2007Left THR Other Hospitalizations or ER Visits (Date/Reason):2016: 2 strokes, January & April2018: liver failure, : Tachycardia, April Is very tired. Medications:Any medicines stopped recently? noDo you use a pill organizer?: NoHow often do you forget to take your medications?: RareDo you have any concerns about your medications?:Would eventually like to stop prednisone General Information: Daily Assistance:Function:AD L: (bathing, dressing, toileting, transferring, continence, feeding)IndependentIAD L: ( Telephone, shopping, food preparation, housekeeping, laundry, Transportation, Medications, Finances)Gets help with shopping, food prep, housekeeping,drivingDo you have someone who helps you?: yesWho: Gia Myers, housekeeping, cat care, appts.Tasks:Do you provide care for a family member?: No Falls and Mobility: Any falls in the last year?: noAre you afraid of falling?: yesAssistive Device: walker Sleep How would you describe your sleep?: goodDo you snore?:noHave you been tested for sleep apnea?: no Nutrition How would you describe your appetite: goodHave you experienced weight changes over the last year?: lostWould you like assistance with meals?: maybe Fitness Level Do you feel tired during the day?: yesCan you walk up a flight of stairs?: 2 chair lifts in her homeCan you walk around the block?: noDo you take part in regular activities to improve or support your physical fitness?: yesHow do you think your health compares to others your age? fair Other concerns or information: Completed by: Ana Laura Argueta MD [address] [place] [address], [phone], [facility] [employer] 03/03/2025 15:58:21 03/13/2025 text/html ROS as noted in the HPI Since last visit, NPV - 4.15.25 Had a light fixture fall on her forehead, she didnt pass out, didnt fall, no change in vision, no headaches. Put some Arnica on her forehead. Went to [facility] in [place] and had shots in wrist for CTS and in handShe is seeing ortho who may need operate. Otherwise she is feeling okay. Melvi Argueta MD [address] [place] [address], [place], [phone], [facility] 03/13/2025 15:48:08 06/12/2025 text/html ROS as noted in the HPI Since last visit, 03.13. (CPE) Gia here is here with her, who is her long time CSR TECHNICIAN. 6.03.24 Heme referral made for coumadin mgmt.. Had CTS surgery on right Falls/change in gait: wasn't walking for the past 4 weeks Chief ComplaintRecovery from hand surgery ~ 4 weeks ago, difficulty walking, weakness in legs History of Present IllnessAna Laura Krishnamurthy, with a history of autoimmune hepatitis, strokes, and recent hand surgery, presenting for follow-up. She reports a difficult recovery from a one-inch incision on her hand, which she found more challenging than previous knee, hip, and breast cancer surgeries. The patient underwent hand surgery about 4 weeks ago, on May 06. She experienced weakness in her legs and difficulty using her walker due to the hand incision. She started using the walker again yesterday and reports feeling better today, though she anticipates needing another week of recovery to regain her walking ability. The patient has been using rolling chairs to move around the house during her recovery period. She mentions that the recovery from this small incision has been more difficult due to her age and inability to use her walker. The patient reports doing half an hour on her CD-Stepper yesterday, which she hadn't used during her recovery. She has also been performing isometric exercises like foot pumps, tightening leg muscles, and buttocks about 10 times a day. She saw the surgeon last Tuesday to have the stitches removed and is using plain pads under the incision to protect it when using her walker. The patient discontinued atorvastatin on March 27 after taking it for about 10 months. She reports feeling weaker over the 10 months she took the medication and was concerned about potential side effects such as muscle weakness and wasting. She has been managing her autoimmune hepatitis through diet and reports having normal liver profiles since 2020. The patient has also experienced significant weight loss, going from 270-something pounds six years ago to 186 pounds currently. The patient mentions having neuropathy in her feet for no apparent reason and initially thought she was developing it in her hands as well. However, it was diagnosed as carpal tunnel syndrome. She reports improvement in her right hand over the past 3 years since diagnosis and is considering not having surgery on that hand. The patient stopped taking prednisone due to concerns about her neck, following advice from Dr. Hilliard who suggested five years on prednisone was too much. Regarding her vision, the patient reports living in a amaya, dim light due to cataracts. She expresses frustration that her computing services director, Dr. Verde, won't perform cataract surgery because she's still passing the eye chart test. The patient describes difficulty with color perception and mentions that a new pair of glasses she recently obtained is not helping her vision. The patient reports adherence to her warfarin regimen, keeping detailed records of her doses and INR results. She makes her own dosage adjustments based on her INR and diet, which her current doctor, Dr. Ramirez, approves of. The patient has a scheduled cardiology follow-up on July 04, which was moved from April due to her hand issue. Medications and Supplements- Atorvastatin- Started April 2024, stopped March 27, 2025 after taking for 10 months- Caused weakness and reduced exercise tolerance- Prednisone- Taken for 5 years- Discontinued due to concerns about long-term use and potential effects on neck- Warfarin- Patient self-adjusts dose based on INR results- Monitors INR at home Review of SystemsGeneral: Positive for weakness, fatigue.HEENT: Positive for hearing difficulty, vision changes (amaya haze, color perception issues).Musculoskeleta l: Positive for leg weakness, limited shoulder range of motion.Neurological: Positive for neuropathy in feet. Melvi Argueta MD [address] [place] [address], [place], [phone], [facility] [employer] [facility] 06/12/2025 14:10:56 OBGyn Episode No OBEpisode recorded.
== END 2025-10-11 16:52 | disposition home or self-care (01) ==
LOC: HO.LNP 16:51
PROVIDERS: Visit Provider Internal Medicine
DX: K75.4 Autoimmune hepatitis (principal)
CPT/HCPCS: 80076